=== PATIENT | male | born 1985 | race Caucasian/White ===

== ENCOUNTER 2016-12-10 10:35 | Emergency (ER) | payer MEDICARE, MEDICAID ==
[2016-12-10 10:51] VITALS: BMI 27.3
[2016-12-10 10:52] VITALS: BP 129/82; PULSE 68; RESP 18; TEMP 98.2; O2SAT 98
== END 2016-12-10 10:51 | disposition left against medical advice (07) ==
LOC: C.ER 10:35
DX: Z00.8 Encounter for other general examination (principal); Z02.9 Encounter for administrative examinations, unspecified

== ENCOUNTER 2016-12-11 06:32 | Inpatient (IN) | payer MEDICARE, MEDICAID ==
[2016-12-11 06:32] VITALS: BMI 27.3
[2016-12-11 08:18] LABS: BASO % 0.9 % (0.0-2.0); EOS # 0.2 K/uL (0.0-0.7); EOS % 5.2 % (0.0-4.0); HEMATOCRIT 43.4 % (35.0-51.0); LYMPH # 0.4 K/uL (1.0-4.3); LYMPH % 10.6 % (20.0-40.0); MEAN CELL VOLUME 87.7 fL (80.0-94.0); MEAN CORPUSCULAR HEMOGLOBIN 28.9 pg (27.0-31.0); MEAN PLATELET VOLUME 8.4 fL (7.2-11.7); MONO # 0.4 K/uL (0.0-0.8); MONO % 10.5 % (0.0-10.0); NRBC % 0.1 % (0.0-2.0); RED CELL DISTRIBUTION WIDTH 13.7 % (11.5-14.5); WHITE BLOOD COUNT 4.2 K/uL (4.8-10.8)
[2016-12-11 08:22] LABS: RBC URINE 1 /hpf (0-3); URINE BILIRUBIN NEGATIVE (NEGATIVE); URINE BLOOD NEGATIVE (NEGATIVE); URINE COLOR Yellow (YELLOW); URINE GLUCOSE (UA) NORMAL (Normal); URINE KETONE NEGATIVE (NEGATIVE); URINE LEUKOCYTE ESTERASE NEG Leu/uL (Negative); URINE PROTEIN NEGATIVE (NEGATIVE); URINE UROBILINOGEN NORMAL mg/dL (0.2-1.0)
[2016-12-11 08:23] LABS: CHLORIDE 101 mmol/L (98-107)
[2016-12-11 08:24] LABS: POTASSIUM 4.6 mmol/L (3.6-5.2); SODIUM 139 mmol/L (132-148)
[2016-12-11 08:26] LABS: ALB/GLOB RATIO 1.2 (1.0-2.1); ALKALINE PHOSPHATASE 71 U/L (38-126); AST/SGOT 61 U/L (17-59); BILIRUBIN,TOTAL 0.7 mg/dL (0.2-1.3); BLOOD UREA NITROGEN 13 mg/dL (9-20); CARBON DIOXIDE 29 mmol/L (22-30); GFR AFRICAN-AMERICAN > 60; TOTAL PROTEIN 7.5 g/dL (6.3-8.3)
[2016-12-11 08:27] LABS: ALCOHOL SERUM < 10 mg/dl (0-10); ALT/SGPT 97 U/L (21-72); CALCIUM 9.1 mg/dl (8.6-10.4); GLUCOSE,RANDOM 92 mg/dL (75-110)
--- NOTE | 2016-12-11 08:45 | C.PDOC ---
History Of Present Illness 31 y/o male, whose PMHx includes anxiety, depression, and schizophrenia, presents to the ED complaining of depression. Patient admits to suicidal ideation but denies suicidal pain. He reports that he is hearing voices telling him to kill himself. Admits to history of heroin abuse. Patient denies any pain or other complaints at this time. Time Seen by Provider: 12/11/16 07:15 Chief Complaint (Nursing): Psychiatric Evaluation History Per: Patient History/Exam Limitations: no limitations Onset/Duration Of Symptoms: Days, Gradual, Persistent Current Symptoms Are (Timing): Still Present Suicide/Self Injury Attempted (Context): None Associated Symptoms: Depression, Suicidal Thoughts Involuntary Hold By: None Recent travel outside of the [place]: No Past Medical History Reviewed: Historical Data, Nursing Documentation, Vital Signs Vital Signs: Last Vital Signs Temp 98.7 F 12/11/16 11:00 Pulse 84 12/11/16 11:00 Resp 16 12/11/16 11:00 BP 119/61 12/11/16 11:00 Pulse Ox 96 12/11/16 11:00 - Medical History PMH: Anxiety, Depression, Schizophrenia Surgical History: No Surg Hx - [facility] Procedures DETOXIFICATION SERVICES FOR SUBSTANCE ABUSE TREATMENT (11/13/16) GROUP PSYCHOTHERAPY (11/13/16) INDIV PSYCHOTHERAPY FOR SUBSTANCE ABUSE TREATMENT, SUPPORT (11/13/16) INDIV PSYCHOTHERAPY FOR SUBSTANCE ABUSE, COGNITIV BEHAVIORAL (11/13/16) INDIV PSYCHOTHERAPY FOR SUBSTANCE ABUSE, PSYCHOEDUCATION (11/13/16) Family History: States: No Known Family Hx - Social History Hx Tobacco Use: Yes Hx Alcohol Use: No Hx Substance Use: Yes (heroin) Review Of Systems Except As Marked, All Systems Reviewed And Found Negative. Musculoskeletal: Negative for: Other (pain) Psych: Positive for: Depression, Suicidal ideation Physical Exam - Physical Exam Appears: Non-toxic, No Acute Distress, Other (flat affect) Skin: Normal Color, Warm, Dry Head: Atraumatic, Normacephalic Neck: Normal ROM Chest: Symmetrical Cardiovascular: Rhythm Regular Respiratory: Normal Breath Sounds, No Rales, No Rhonchi, No Wheezing Gastrointestinal/Abdominal: Normal Exam, Soft, No Tenderness Extremity: Normal ROM Neurological/Psych: Oriented x3, Normal Speech, Normal Cognition ED Course And Treatment - Laboratory Results Result Diagrams: 12/11/16 08:11 03/21/17 08:11 O2 Sat by Pulse Oximetry: 98 (ra) Pulse Ox Interpretation: Normal Progress Note: Blood work and urinalysis were ordered. Patient was placed under 1:1 observation. 9:45AM- Patient medically cleared. Pending crisis. Patient admitted under the care of Dr. Dominick Lara. Disposition - Disposition Disposition: HOSPITALIZED - Scribe Statement The provider has reviewed the documentation as recorded by the Scribe (Emelina Nava) Provider Attestation: All medical record entries made by the Scribe were at my direction and personally dictated by me. I have reviewed the chart and agree that the record accurately reflects my personal performance of the history, physical exam, medical decision making, and the department course for this patient. I have also personally directed, reviewed, and agree with the discharge instructions and disposition.
[2016-12-11 11:23] VITALS: O2SAT 98
[2016-12-11] MEDS ORDERED: Aluminum Hydroxide/Magnesium Hydroxide Susp (30 mL) PO PRN (13:16)
--- NOTE | 2016-12-11 15:28 | PCM.PSYCH ---
Initial Psychiatric Evaluation - Initial Psychiatric Evaluation Type of Admission: Voluntary Legal Status: Capacity Chief Complaint (in patient's own words): i am hearing voices to kill myself History of Present Illness and Precipitating Events: This is a 31 year old, HM currently single and unemployed, who is recently immigrated from [place] almost 5 years ago, presented to the ED for a crisis evaluation due to depression, auditory hallucinations command type to kill himself and opiate dependence. Pt was just discharged from the [facility] 5E unit, one month ago. As per the pt, he relapsed on heroin soon after the discharge and stopped taking his medications. Yesterday he injected almost 20 bags of heroin, and started hearing voices, commanding him to kill himself. Pt got concerned and came to the hospital to get help. Pt appeared disorganized and internally preoccupied throughout the interview. He was superficially cooperative but remained guarded about the details. He reports depressed mood, feelings of hopelessness and helplessness. He reports poor sleep, poor appetite and low energy. besides auditory hallucinations, he reports persecutory delusion that people are following him. Pt reports the withdrawal symptoms including bone pain, anxiety, cold sweats, abdominal cramps and anxiety. Patient has a history of suicide attempts/self harm and has multiple scars on his arm and wrists. Pt reports abusing occasionally marijuana and cocaine when he does not have enough money for heroin. However, he denies any drinking or any other substance abuse. Past Medical History: None reported, NKDA Current Medications: Active Medications Generic Name Dose Route Start Last Admin Trade Name Freq PRN Reason Stop Dose Admin Acetaminophen 650 mg 12/11/16 13:15 Tylenol 325mg Tab PO Q6 PRN Fever >100.4 F Al Hydrox/Mg Hydrox/Simethicone 30 ml 12/11/16 13:16 Maalox 30 Ml PO TID PRN Indigestion / Heartburn Clonidine HCl 0.1 mg 12/11/16 13:16 Catapres PO Q8 PRN COWS Score More or Equal to 5 Diphenhydramine HCl 50 mg 12/11/16 13:15 Benadryl PO Q6 PRN Extra Pyramidal Symptoms Loperamide HCl 2 mg 12/11/16 13:15 Imodium PO Q8 PRN Diarrhea Methadone HCl 5 mg 12/12/16 10:00 Methadone PO 03/25/17 09:59 DAILY MAIRA Taper Nicotine 1 patch 12/11/16 13:30 12/11/16 13:58 Nicoderm Cq TD 1 patch DAILY MAIRA Administration Ondansetron HCl 4 mg 12/11/16 13:15 12/11/16 13:59 Zofran Tab PO 4 mg Q8H PRN Administration Nausea/Vomiting Sertraline HCl 50 mg 12/12/16 10:00 Zoloft PO DAILY MAIRA Trazodone HCl 50 mg 12/11/16 22:00 Desyrel PO HS MAIRA Past Psychiatric History - Past Psychiatric History Previous Treatment History: Inpatient Pertinent Medical Hx (Current Medical&Sleep Prob, Allergies): Allergies Allergy/AdvReac Type Severity Reaction Status Date / Time No Known Allergies Allergy Verified 12/11/16 06:43 No Known Home Med 12/10/16 Review of Systems - Review of Systems All systems: reviewed and no additional remarkable complaints except - Psychiatric Psychiatric: Anxiety, Auditory Hallucinations, Irritability, Paranoia, Suicidal Ideation Mental Status Examination - Personal Presentation Personal Presentation: Looks stated age - Affect Affect: Constricted, Depressed - Motor Activity Motor Activity: Psychomotor Retardation - Reliability in Providing Information Reliability in Providing Information: Poor, due to alteration in thoughts, Poor , due to altered mood - Speech Speech: Disorganized - Mood Mood: Depressed, Anxious - Formal Thought Process Formal Thought Process: Hallucinations, Delusions, Paranoia, Loosening of associations - Hallucinations/Delusions Hallucinations: Auditory Delusions: Persecution - Obsessions/Compulsions Obsessions: No Compulsions: No - Cognitive Functions Orientation: Person, Place, Situation, Time Sensorium: Alert Attention/Concentration: Attentive Abstract Thinking: [place] Estimate of Intelligence: Below average Judgement: Imparied, as evidence by: Poor judgement, Imparied, as evidence by: Lack of insight into illness - Risk Risk: Suicidal, Withdrawal, Diminished functioning - Strength & Assets Inventory Strength & Assets Inventory: Cooperative - Limitations Limitations: Living alone DSM 5 DX - DSM 5 DSM 5 Diagnosis: Schizoaffective disorder Bipolar type Opioid use severe Opioid withdrawal Cocaine use mild Cannabis use mild - Recommended/Plan of Treatment Treatment Recommendations and Plan of Treatment: Schizoaffective disorder Bipolar type CBT Psychoeducation Supportive therapy, group therapy, individual therapy Zoloft 50 mg PO daily Trazodone 50 mg by mouth daily at bedtime Opioid use disorder severe CBT & Psychoeducation Supportive therapy, individual therapy Use [place] for abstinence Opioid withdrawal CBT Psychoeducation Supportive therapy, individual therapy methadone taper Cocaine use mild CBT & Psychoeducation Use [place] for abstinence Cannabis use mild CBT & Psychoeducation Use [place] for abstinence - Smoking Cessation Smoking Cessation Initiated: No
--- NOTE | 2016-12-12 14:38 | PCM.PYCHPN ---
Psychiatric Progress Note - Psychiatric Progress Note Patient seen today, length of contact: 15 min Patient Chief Complaint: i am hearing voices to kill myself Problems Identified/Issues Discussed: Patient seen and evaluated, chart reviewed and discussed with the nurse. Patient still appears disorganized and internally preoccupied. However he remained calm and cooperative. He reports of auditory hallucinations and persecutory delusions. He still reports withdrawal symptoms including shakes, cramps, anxiety, headaches and sweating. He is taking medication and denied any side effects. Supportive therapy and psychoeducation were given Medication Change: Yes (Start Prolixin) Medical Record Reviewed: Yes Mental Status Examination - Cognitive Function Orientation: Person, Place, Situation, Time Memory: Intact Attention: Poor Concentration: Poor Association: Loose Fund of Knowledge: Poor - Mood Mood: Depressed, Anxious - Affect Affect: Constricted, Depressed - Formal Thought Process Formal Thought Process: Hallucinations, Delusions, Paranoia, Loosening of associations - Suicidal Ideation Suicidal Ideation: No - Homicidal Ideation Homicidal Ideation: No Goal/Treatment Plan - Goal/Treatment Plan Need for Continued Stay: Discharge may exacerbated symptoms, Severe functional impairment Progress Toward Problem(s) and Goals/Treatment Plan: Schizoaffective disorder Bipolar type CBT Psychoeducation Supportive therapy, group therapy, individual therapy Zoloft 50 mg PO daily Trazodone 50 mg by mouth daily at bedtime Prolixin 5 mg by mouth twice a day Opioid use disorder severe CBT & Psychoeducation Supportive therapy, individual therapy Use [place] for abstinence Opioid withdrawal CBT Psychoeducation Supportive therapy, individual therapy methadone taper Cocaine use mild CBT & Psychoeducation Use [place] for abstinence Cannabis use mild CBT & Psychoeducation Use [place] for abstinence - Smoking Cessation Smoking Cessation Initiated: No
--- NOTE | 2016-12-13 14:39 | PCM.PYCHPN ---
Psychiatric Progress Note - Psychiatric Progress Note Patient seen today, length of contact: 15 min Patient Chief Complaint: I'm still feeling depressed Problems Identified/Issues Discussed: Patient seen and evaluated, chart reviewed and discussed with the nurse. As per the staff, patient still appears disorganized and internally preoccupied. He still reports of auditory hallucinations and persecutory delusions but he remained calm and cooperative. He reports depressed mood and poor sleep. However he is taking medication and denied any side effects. Supportive therapy and psychoeducation were given Medication Change: Yes (Increase Zoloft) Medical Record Reviewed: Yes Mental Status Examination - Cognitive Function Orientation: Person, Place, Situation, Time Memory: Intact Attention: WNL Concentration: Poor Association: Loose Fund of Knowledge: Poor - Mood Mood: Depressed, Anxious - Affect Affect: Constricted, Depressed - Formal Thought Process Formal Thought Process: Hallucinations, Delusions, Paranoia, Loosening of associations - Suicidal Ideation Suicidal Ideation: No - Homicidal Ideation Homicidal Ideation: No Goal/Treatment Plan - Goal/Treatment Plan Need for Continued Stay: Discharge may exacerbated symptoms, Severe functional impairment Progress Toward Problem(s) and Goals/Treatment Plan: Schizoaffective disorder Bipolar type CBT Psychoeducation Supportive therapy, group therapy, individual therapy Zoloft 100 mg PO daily Trazodone 50 mg by mouth daily at bedtime Prolixin 5 mg twice a day Opioid use disorder severe CBT & Psychoeducation Supportive therapy, individual therapy Use [place] for abstinence Opioid withdrawal CBT Psychoeducation Supportive therapy, individual therapy methadone taper Cocaine use mild CBT & Psychoeducation Use [place] for abstinence Cannabis use mild CBT & Psychoeducation Use [place] for abstinence - Smoking Cessation Smoking Cessation Initiated: No
[2016-12-14] MEDS ORDERED: Pneumococcal 23-Valent Vaccine IM ONE (10:00)
[2016-12-14] MEDS ORDERED: Influenza Virus Vaccine 45 mcg/0.5 ml Syr IM ONE (10:00)
--- NOTE | 2016-12-14 11:08 | PCM.PYCHPN ---
Psychiatric Progress Note - Psychiatric Progress Note Patient seen today, length of contact: 15 min Patient Chief Complaint: I'm feeling little better Problems Identified/Issues Discussed: Patient seen and evaluated, chart reviewed and discussed with the nurse. As per the staff patient remained confined and withdrawn. His affect is flat and he has severe thought blocking's. However patient reports improvement in his mood and improvement in his hallucinations. He still reports withdrawal symptoms including cramps, headaches and sweating. He reports a bit improvement in auditory hallucinations and persecutory delusions. Patient still appears a bit disorganized and somewhat internally preoccupied. However he remained calm and cooperative. He is taking medication and denies any side effects. Supportive therapy and psychoeducation were given Medication Change: Yes (Increase Prolixin) Medical Record Reviewed: Yes Mental Status Examination - Cognitive Function Orientation: Person, Place, Situation, Time Memory: Intact Attention: WNL Concentration: Poor Association: Loose Fund of Knowledge: Poor - Mood Mood: Depressed, Anxious - Affect Affect: Constricted, Depressed - Speech Speech: Soft - Formal Thought Process Formal Thought Process: Hallucinations, Delusions, Paranoia, Loosening of associations - Suicidal Ideation Suicidal Ideation: No - Homicidal Ideation Homicidal Ideation: No Goal/Treatment Plan - Goal/Treatment Plan Need for Continued Stay: Discharge may exacerbated symptoms, Severe functional impairment Progress Toward Problem(s) and Goals/Treatment Plan: Schizoaffective disorder Bipolar type CBT Psychoeducation Supportive therapy, group therapy, individual therapy Zoloft 100 mg PO daily Trazodone 50 mg by mouth daily at bedtime Prolixin 5 mg by mouth daily Prolixin 10 mg by mouth daily at bedtime Opioid use disorder severe CBT & Psychoeducation Supportive therapy, individual therapy Use [place] for abstinence Opioid withdrawal CBT Psychoeducation Supportive therapy, individual therapy methadone taper Cocaine use mild CBT & Psychoeducation Use [place] for abstinence Cannabis use mild CBT & Psychoeducation Use [place] for abstinence - Smoking Cessation Smoking Cessation Initiated: No
--- NOTE | 2016-12-16 23:48 | PCM.PYCHPN ---
Psychiatric Progress Note - Psychiatric Progress Note Patient seen today, length of contact: 15 MIN Patient Chief Complaint: I AM HAVING A HARD TIME WITHB THE WITHDRAWAL SYMPTOMS- YAWNING SWEATING SHAKES Problems Identified/Issues Discussed: SYMPTOM MANAGEMENT RELAPSE PREVENTION CARING FOR SELF Medical Problems: NOTHING ACUTE Diagnostic Results: REVIEWED Medication Change: No Medical Record Reviewed: Yes Mental Status Examination - Cognitive Function Orientation: Place, Situation, Time Memory: Intact Attention: WNL Concentration: Poor Association: WNL Fund of Knowledge: Poor - Mood Mood: Depressed, Anxious - Affect Affect: Constricted, Depressed - Speech Speech: Appropriate - Formal Thought Process Formal Thought Process: Hallucinations, Paranoia - Suicidal Ideation Suicidal Ideation: No - Homicidal Ideation Homicidal Ideation: No Goal/Treatment Plan - Goal/Treatment Plan Need for Continued Stay: Discharge may exacerbated symptoms, Severe functional impairment Progress Toward Problem(s) and Goals/Treatment Plan: SCHIZOAFFECTIVE DISORDER PROLIXIN ZOLOFT GROUPS MT CBT SUPPORTIVE PSYCHOTHERAPY OPIATE WITHDRAWAL METHADONE OPIATE USE DISORDER GROUPS CBT MT COCAINE USE DISORDER CBT MT GROUPS CANNABIS USE DISORDER PSYCHOEDUCATION GROUPS Estimated Date of D/C: 12/22/16 - Smoking Cessation Smoking Cessation Initiated: Yes
--- NOTE | 2016-12-16 23:56 | PCM.PYCHPN ---
Psychiatric Progress Note - Psychiatric Progress Note Patient seen today, length of contact: 15 MIN Patient Chief Complaint: II AM SLEEPING BETTER BUT HAVE A HARD TIME PAYING ATTENTION IN GROUPS SOMETIMES Problems Identified/Issues Discussed: ROSANA NECESSITY OF ADHERENCE TO TREATMENT Medical Problems: NOTHING ACUTE Diagnostic Results: REVIEWED Medication Change: No Medical Record Reviewed: Yes Mental Status Examination - Cognitive Function Orientation: Situation, Time Memory: Intact Attention: WNL Concentration: Poor Association: WNL Fund of Knowledge: Poor - Mood Mood: Depressed, Anxious - Affect Affect: Constricted, Depressed - Speech Speech: Appropriate - Formal Thought Process Formal Thought Process: Hallucinations, Paranoia - Suicidal Ideation Suicidal Ideation: No - Homicidal Ideation Homicidal Ideation: No Goal/Treatment Plan - Goal/Treatment Plan Need for Continued Stay: Discharge may exacerbated symptoms, Severe functional impairment Progress Toward Problem(s) and Goals/Treatment Plan: SCHIZOAFFECTIVE DISORDER PROLIXIN ZOLOFT GROUPS DC CBT SUPPORTIVE PSYCHOTHERAPY OPIATE WITHDRAWAL METHADONE OPIATE USE DISORDER GROUPS CBT DC COCAINE USE DISORDER CBT DC GROUPS CANNABIS USE DISORDER PSYCHOEDUCATION GROUPS Estimated Date of D/C: 12/22/16 - Smoking Cessation Smoking Cessation Initiated: Yes
--- NOTE | 2016-12-17 10:54 | PCM.PYCHDC ---
Mental Status Examination - Mental Status Examination Orientation: Person, Place, Situation, Time Memory: Intact Mood: Neutral Affect: Constricted Speech: Soft Attention: WNL Concentration: WNL Association: WNL Fund of Knowledge: WNL Formal Thought Process: No Impairment Description of patient's judgement and insight: good, fair Psychotic Thoughts and Behaviors: Denies any AVH Suicidal Ideation: No Current Homicidal Ideation?: No Discharge Summary - Discharge Note Reason for Hospitalization: This is a 31 year old, HM currently single and unemployed, who is recently immigrated from [place] almost 5 years ago, presented to the ED for a crisis evaluation due to depression, auditory hallucinations command type to kill himself and opiate dependence. Pt was just discharged from the [facility] 5E unit, one month ago. As per the pt, he relapsed on heroin soon after the discharge and stopped taking his medications. Yesterday he injected almost 20 bags of heroin, and started hearing voices, commanding him to kill himself. Pt got concerned and came to the hospital to get help. Pt appeared disorganized and internally preoccupied throughout the interview. He was superficially cooperative but remained guarded about the details. He reports depressed mood, feelings of hopelessness and helplessness. He reports poor sleep, poor appetite and low energy. besides auditory hallucinations, he reports persecutory delusion that people are following him. Pt reports the withdrawal symptoms including bone pain, anxiety, cold sweats, abdominal cramps and anxiety. Patient has a history of suicide attempts/self harm and has multiple scars on his arm and wrists. Pt reports abusing occasionally marijuana and cocaine when he does not have enough money for heroin. However, he denies any drinking or any other substance abuse. Past Medical History: None reported, NKDA Consultations:: List each consultation separately and include: 1. Reason for request. 2. Findings. 3. Follow-up Summary of Hospital Course include:: 1. Description of specific treatment plan utilized for patients during their course of treatmen. 2. Summarize the time- course for resolution of acute symptoms and/or regressed behaviors. 3. Describe issues identified and worked on during hospitalization. 4. Describe medication utilized. 5. Describe medical problems identified and treated. 6. Reassessment of suicide risk Summary of Hospital Course: During the course of his stay, patient (pt) started progressively improving and he no longer remained irritable, depressed, suicidal and paranoid. His mood and paranoia were improved and he started attending groups and meetings and started socializing. Patient denied any feelings of hopelessness, helplessness, and worthlessness, denied any problem with the sleep or appetite, denied suicidal ideation or homicidal ideation. Pt denied any auditory or visual hallucinations. Some changes were made in his current medications and patient was discharged on following medications. He tolerated these medications very well and denied any side effects. - Final Diagnosis (DSM 5) Condition upon Discharge: GOOD DSM 5: Schizoaffective disorder Bipolar type Opioid use disorder severe Opioid withdrawal Cocaine use mild Cannabis use mild Disposition: HOME/ ROUTINE Follow-up Treatment Plan: Education: Pt was educated and counseled about the risks and benefits of taking and not taking medications. Pt was educated and counseled about the risks of drinking and abusing drugs. Pt was educated and counseled to go to the ER or call 911 if pt develop suicidal ideation or homicidal ideation, worsening of symptoms or severe side effects of the meds. Prescriptions/Medication Reconciliation: Benztropine [Cogentin] 1 mg PO BID #60 tab fluPHENAZine [Prolixin] 10 mg PO BID #60 tab Sertraline [Zoloft] 100 mg PO DAILY #30 tab - Smoking Cessation Smoking Cessation Medication prescribed: No - Antipsychotic Medications Pt discharged on 2 or more routine antipsychotic medications: No
[2016-12-17 10:55] VITALS: BP 115/74; PULSE 85; RESP 20; TEMP 98.3
== END 2016-12-17 13:10 | disposition home or self-care (01) | DRG 895 ==
LOC: C.ER 06:32 → C.5E 10:36
PROVIDERS: ADMIT Psychiatry & Neurology Psychiatry; ATTEND Psychiatry & Neurology Psychiatry
PROC: GZ58ZZZ Individual Psychotherapy, Cognitive-Behavioral (ICD-10-PCS; principal; 2016-12-11)
PROC: HZ52ZZZ Individual Psychotherapy for Substance Abuse Treatment, Cognitive-Behavioral (ICD-10-PCS; 2016-12-11)
PROC: GZ56ZZZ Individual Psychotherapy, Supportive (ICD-10-PCS; 2016-12-11)
PROC: GZHZZZZ Group Psychotherapy (ICD-10-PCS; 2016-12-11)
PROC: HZ59ZZZ Individual Psychotherapy for Substance Abuse Treatment, Supportive (ICD-10-PCS; 2016-12-11)
PROC: HZ56ZZZ Individual Psychotherapy for Substance Abuse Treatment, Psychoeducation (ICD-10-PCS; 2016-12-11)
PROC: HZ2ZZZZ Detoxification Services for Substance Abuse Treatment (ICD-10-PCS; 2016-12-11)
DX: F11.23 Opioid dependence with withdrawal (principal); R45.851 Suicidal ideations; F25.0 Schizoaffective disorder, bipolar type; F22 Delusional disorders; F12.90 Cannabis use, unspecified, uncomplicated; F14.90 Cocaine use, unspecified, uncomplicated; F41.9 Anxiety disorder, unspecified; Z79.899 Other long term (current) drug therapy; Z91.5 Personal history of self-harm

== ENCOUNTER 2017-01-01 09:12 | Inpatient (IN) | payer MEDICARE, MEDICAID ==
[2017-01-01 09:13] VITALS: BMI 27.3
[2017-01-01 09:54] LABS: RBC URINE 1 /hpf (0-3); URINE BILIRUBIN NEGATIVE (NEGATIVE); URINE BLOOD NEGATIVE (NEGATIVE); URINE COLOR Yellow (YELLOW); URINE GLUCOSE (UA) NORMAL (Normal); URINE KETONE NEGATIVE (NEGATIVE); URINE LEUKOCYTE ESTERASE NEG Leu/uL (Negative); URINE PROTEIN NEGATIVE (NEGATIVE); URINE UROBILINOGEN NORMAL mg/dL (0.2-1.0); WBC URINE 2 /hpf (0-5)
[2017-01-01 09:57] LABS: BASO % 0.7 % (0.0-2.0); EOS # 0.3 K/uL (0.0-0.7); EOS % 5.3 % (0.0-4.0); HEMATOCRIT 41.2 % (35.0-51.0); LYMPH # 0.8 K/uL (1.0-4.3); MEAN CELL VOLUME 89.1 fL (80.0-94.0); MEAN CORPUSCULAR HEMOGLOBIN 28.7 pg (27.0-31.0); MEAN CORPUSCULAR HGB CONC 32.2 g/dL (33.0-37.0); MEAN PLATELET VOLUME 8.8 fL (7.2-11.7); MONO # 0.3 K/uL (0.0-0.8); MONO % 6.6 % (0.0-10.0); RED CELL DISTRIBUTION WIDTH 14.4 % (11.5-14.5); WHITE BLOOD COUNT 4.8 K/uL (4.8-10.8)
--- NOTE | 2017-01-01 09:58 | C.PDOC ---
History Of Present Illness 31 y/o male, whose PMHx includes depression, anxiety, and schizophrenia, presents to the ED complaining of hearing voices telling him to hurt people x 1 day. He reports history of heroin abuse and states last use was yesterday. Patient denies any suicidal ideation or physical complaints. Time Seen by Provider: 01/01/17 09:25 Chief Complaint (Nursing): Psychiatric Evaluation History Per: Patient History/Exam Limitations: no limitations Onset/Duration Of Symptoms: Days (1), Gradual, Persistent Current Symptoms Are (Timing): Still Present Suicide/Self Injury Attempted (Context): None Modifying Factor(s): Other (heroin) Involuntary Hold By: None Recent travel outside of the [place]: No Past Medical History Reviewed: Historical Data, Nursing Documentation, Vital Signs Vital Signs: Last Vital Signs Temp 98.1 F 01/01/17 09:17 Pulse 69 01/01/17 09:17 Resp 16 01/01/17 09:17 BP 123/81 01/01/17 09:17 Pulse Ox 98 01/01/17 11:25 - Medical History PMH: Anxiety, Depression, Schizophrenia (paranoid schizophrenia) Surgical History: No Surg Hx - [facility] Procedures DETOXIFICATION SERVICES FOR SUBSTANCE ABUSE TREATMENT (12/11/16) GROUP PSYCHOTHERAPY (12/11/16) INDIV PSYCHOTHERAPY FOR SUBSTANCE ABUSE TREATMENT, SUPPORT (12/11/16) INDIV PSYCHOTHERAPY FOR SUBSTANCE ABUSE, COGNITIV BEHAVIORAL (12/11/16) INDIV PSYCHOTHERAPY FOR SUBSTANCE ABUSE, PSYCHOEDUCATION (12/11/16) INDIVIDUAL PSYCHOTHERAPY, COGNITIVE-BEHAVIORAL (12/11/16) INDIVIDUAL PSYCHOTHERAPY, SUPPORTIVE (12/11/16) Family History: States: No Known Family Hx - Social History Hx Tobacco Use: Yes Hx Alcohol Use: No Hx Substance Use: Yes - Immunization History Hx Tetanus Toxoid Vaccination: No Hx Influenza Vaccination: No Hx Pneumococcal Vaccination: No Review Of Systems Except As Marked, All Systems Reviewed And Found Negative. Musculoskeletal: Negative for: Other (pain) Psych: Positive for: Other (hearing voices). Negative for: Suicidal ideation Physical Exam - Physical Exam Appears: Non-toxic, No Acute Distress Skin: Normal Color, Warm, Dry Head: Atraumatic, Normacephalic Eye(s): bilateral: Normal Inspection, PERRL Neck: Normal ROM Chest: Symmetrical Cardiovascular: Rhythm Regular Respiratory: Normal Breath Sounds, No Rales, No Rhonchi, No Wheezing Gastrointestinal/Abdominal: Normal Exam, Soft, No Tenderness Extremity: Normal ROM, No Swelling Neurological/Psych: Oriented x3, Normal Speech, Normal Cognition ED Course And Treatment - Laboratory Results Result Diagrams: 01/01/17 09:47 01/01/17 09:47 Lab Interpretation: Normal O2 Sat by Pulse Oximetry: 98 (ra) Pulse Ox Interpretation: Normal Progress Note: Blood Work and Urinalysis were ordered. Case discussed and patient evaluated by crisis who request admission to Dr Lara Reassessment Condition: Unchanged - Physician Consult Information Physician Contacted: Dominick Lara Outcome Of Conversation: admit Disposition Discussed With .: Dominick Lara Doctor Will See Patient In The: Hospital - Disposition Disposition: HOSPITALIZED Disposition Time: 11:30 Condition: STABLE - POA Present On Arrival: None - Clinical Impression Clinical Impression: Drug abuse, Schizophrenia - PA / HOT TOP [employer]ER / Resident Statement MD/DO has reviewed & agrees with the documentation as recorded. - Scribe Statement The provider has reviewed the documentation as recorded by the Scribe (Emelina Nava) All medical record entries made by the Scribe were at my direction and personally dictated by me. I have reviewed the chart and agree that the record accurately reflects my personal performance of the history, physical exam, medical decision making, and the department course for this patient. I have also personally directed, reviewed, and agree with the discharge instructions and disposition. Decision To Admit - Pt Status Changed To: Hospital Disposition Of: Inpatient - Admit Certification Admit to Inpatient:: After my assessment, the patient will require hospitalization for at least two midnights. This is because of the severity of symptoms shown, intensity of services needed, and/or the medical risk in this patient being treated as an outpatient. - InPatient: Physician Admission Certification: I certify that this patient requires 2 or more midnights of care for the following reason:: Schizophrenia. Opiod abuse - . Bed Request Type: Psychiatry Admitting Physician: Dominick Lara Patient Diagnosis: Drug abuse, Schizophrenia
[2017-01-01 09:59] LABS: CHLORIDE 101 mmol/L (98-107); POTASSIUM 4.3 mmol/L (3.6-5.2); SODIUM 139 mmol/L (132-148)
[2017-01-01 10:01] LABS: BILIRUBIN,TOTAL 0.3 mg/dL (0.2-1.3); CARBON DIOXIDE 29 mmol/L (22-30); GFR AFRICAN-AMERICAN > 60
[2017-01-01 10:02] LABS: ALB/GLOB RATIO 1.3 (1.0-2.1); ALKALINE PHOSPHATASE 79 U/L (38-126); ALT/SGPT 136 U/L (21-72); AST/SGOT 89 U/L (17-59); BLOOD UREA NITROGEN 17 mg/dL (9-20); CALCIUM 8.8 mg/dl (8.6-10.4); GLUCOSE,RANDOM 87 mg/dL (75-110); TOTAL PROTEIN 7.2 g/dL (6.3-8.3)
[2017-01-01 10:03] LABS: ALCOHOL SERUM < 10 mg/dl (0-10)
[2017-01-01 12:06] VITALS: O2SAT 97
[2017-01-01] MEDS ORDERED: Aluminum Hydroxide/Magnesium Hydroxide Susp (30 mL) PO PRN (12:13)
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
--- NOTE | 2017-01-02 11:18 | PCM.PYCHPN ---
Psychiatric Progress Note - Psychiatric Progress Note Patient seen today, length of contact: 16 min Patient Chief Complaint: "I'm hearing voices" Problems Identified/Issues Discussed: Patient seen and evaluated, chart reviewed and discussed with the nurse. Patient appears more organized but remained internally preoccupied. Patient reports irritability, agitation, and racing of thoughts. He still reports hearing voices and still appears paranoid and delusional. He still reports withdrawal symptoms including nausea, cramps, body pains and headaches. Supportive therapy and psychoeducation were given. Medication Change: Yes (methadone taper, start Prolixin) Medical Record Reviewed: Yes Mental Status Examination - Cognitive Function Orientation: Person, Place, Situation, Time Memory: Intact Attention: WNL Concentration: Poor Association: Loose Fund of Knowledge: WNL - Mood Mood: Depressed, Anxious - Affect Affect: Constricted, Depressed - Speech Speech: Soft - Formal Thought Process Formal Thought Process: Hallucinations, Delusions, Paranoia, Loosening of associations - Suicidal Ideation Suicidal Ideation: No - Homicidal Ideation Homicidal Ideation: No Goal/Treatment Plan - Goal/Treatment Plan Need for Continued Stay: Discharge may exacerbated symptoms, Severe functional impairment Progress Toward Problem(s) and Goals/Treatment Plan: Schizoaffective disorder Bipolar type CBT Psychoeducation Supportive therapy, group therapy, individual therapy Paxil 10 mg PO Daily Trazodone 50 mg by mouth daily at bedtime Depakote 250 milligram by mouth twice a day Prolixin 5 mg by mouth twice a day Opioid use disorder severe CBT & Psychoeducation Supportive therapy, individual therapy Use [place] for abstinence Opioid withdrawal CBT Psychoeducation Supportive therapy, individual therapy Methadone taper Cocaine use disorder moderate CBT & Psychoeducation Use [place] for abstinence Cannabis use disorder moderate CBT & Psychoeducation Use [place] for abstinence - Smoking Cessation Smoking Cessation Initiated: No
[2017-01-02] MEDS: Divalproex 250 mg DR Tab PO SCH (17:03)
--- NOTE | 2017-01-03 09:36 | PCM.PYCHPN ---
Psychiatric Progress Note - Psychiatric Progress Note Patient seen today, length of contact: 16 min Patient Chief Complaint: I'm feeling better Problems Identified/Issues Discussed: Patient seen and evaluated, chart reviewed and discussed with the nurse. Patient reports improvement in his mood and psychosis. He reports improvement in the auditory and reports less irritability and less agitation. He requested to be on Seroquel instead of Prolixin. Reports improvement in the withdrawal symptoms. He is taking medication and denies any side effects Supportive therapy and psychoeducation were given. Medication Change: Yes (methadone taper, start Seroquel) Medical Record Reviewed: Yes Mental Status Examination - Cognitive Function Orientation: Person, Place, Situation, Time Memory: Intact Attention: WNL Concentration: WNL Association: WNL Fund of Knowledge: WNL - Mood Mood: Anxious - Affect Affect: Constricted - Speech Speech: Soft - Formal Thought Process Formal Thought Process: No Impairment - Suicidal Ideation Suicidal Ideation: No - Homicidal Ideation Homicidal Ideation: No Goal/Treatment Plan - Goal/Treatment Plan Need for Continued Stay: Discharge may exacerbated symptoms, Severe functional impairment Progress Toward Problem(s) and Goals/Treatment Plan: Schizoaffective disorder Bipolar type CBT Psychoeducation Supportive therapy, group therapy, individual therapy Paxil 10 mg PO Daily Trazodone 50 mg by mouth daily at bedtime Depakote 500 milligram by mouth twice a day Discontinue Prolixin 5 mg by mouth twice a day Seroquel 50 mg by mouth every morning Seroquel 100 mg by mouth daily at bedtime Opioid use disorder severe CBT & Psychoeducation Supportive therapy, individual therapy Use [place] for abstinence Opioid withdrawal CBT Psychoeducation Supportive therapy, individual therapy Methadone taper Cocaine use disorder moderate CBT & Psychoeducation Use [place] for abstinence Cannabis use disorder moderate CBT & Psychoeducation Use [place] for abstinence - Smoking Cessation Smoking Cessation Initiated: No
[2017-01-03] MEDS: Divalproex 250 mg DR Tab PO SCH ×2 (10:45→17:37)
[2017-01-04 07:37] VITALS: BP 108/70; PULSE 61; RESP 19; TEMP 97.7
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
[2017-01-04] MEDS ORDERED: Divalproex 500 mg DR Tab PO SCH (10:00)
== END 2017-01-04 14:10 | disposition home or self-care (01) | DRG 895 ==
LOC: C.ER 09:12 → C.5E 11:23
PROVIDERS: ADMIT Psychiatry & Neurology Psychiatry; ATTEND Psychiatry & Neurology Psychiatry
PROC: HZ2ZZZZ Detoxification Services for Substance Abuse Treatment (ICD-10-PCS; principal; 2017-01-01)
PROC: HZ52ZZZ Individual Psychotherapy for Substance Abuse Treatment, Cognitive-Behavioral (ICD-10-PCS; 2017-01-01)
PROC: HZ59ZZZ Individual Psychotherapy for Substance Abuse Treatment, Supportive (ICD-10-PCS; 2017-01-01)
PROC: GZ58ZZZ Individual Psychotherapy, Cognitive-Behavioral (ICD-10-PCS; 2017-01-01)
PROC: GZ56ZZZ Individual Psychotherapy, Supportive (ICD-10-PCS; 2017-01-01)
PROC: GZHZZZZ Group Psychotherapy (ICD-10-PCS; 2017-01-01)
DX: F11.23 Opioid dependence with withdrawal (principal); F20.0 Paranoid schizophrenia; F25.0 Schizoaffective disorder, bipolar type; F12.90 Cannabis use, unspecified, uncomplicated; F14.90 Cocaine use, unspecified, uncomplicated; F17.210 Nicotine dependence, cigarettes, uncomplicated; Z79.899 Other long term (current) drug therapy

== ENCOUNTER 2017-01-15 12:23 | Emergency (ER) | payer MEDICARE, MEDICAID ==
[2017-01-15 12:23] VITALS: BMI 27.3
[2017-01-15 13:03] LABS: RBC URINE 2 /hpf (0-3); URINE BILIRUBIN NEGATIVE (NEGATIVE); URINE BLOOD NEGATIVE (NEGATIVE); URINE COLOR Yellow (YELLOW); URINE GLUCOSE (UA) NORMAL (Normal); URINE KETONE NEGATIVE (NEGATIVE); URINE LEUKOCYTE ESTERASE NEG Leu/uL (Negative); URINE PROTEIN 1+ mg/dL (NEGATIVE); WBC URINE 1 /hpf (0-5)
[2017-01-15 13:06] LABS: BASO % 0.5 % (0.0-2.0); EOS % 0.8 % (0.0-4.0); HEMATOCRIT 41.7 % (35.0-51.0); LYMPH % 18.4 % (20.0-40.0); MEAN CELL VOLUME 88.4 fL (80.0-94.0); MEAN CORPUSCULAR HEMOGLOBIN 29.3 pg (27.0-31.0); MEAN CORPUSCULAR HGB CONC 33.2 g/dL (33.0-37.0); MEAN PLATELET VOLUME 8.4 fL (7.2-11.7); MONO # 0.3 K/uL (0.0-0.8); MONO % 6.2 % (0.0-10.0); RED CELL DISTRIBUTION WIDTH 13.7 % (11.5-14.5); WHITE BLOOD COUNT 5.5 K/uL (4.8-10.8)
[2017-01-15 13:15] LABS: CHLORIDE 98 mmol/L (98-107)
[2017-01-15 13:16] LABS: POTASSIUM 4.1 mmol/L (3.6-5.2); SODIUM 138 mmol/L (132-148)
[2017-01-15 13:18] LABS: BILIRUBIN,TOTAL 0.9 mg/dL (0.2-1.3); GFR AFRICAN-AMERICAN > 60
[2017-01-15 13:19] LABS: ALB/GLOB RATIO 1.5 (1.0-2.1); ALKALINE PHOSPHATASE 69 U/L (38-126); ALT/SGPT 93 U/L (21-72); AST/SGOT 63 U/L (17-59); BLOOD UREA NITROGEN 16 mg/dL (9-20); CALCIUM 8.9 mg/dl (8.6-10.4); CARBON DIOXIDE 29 mmol/L (22-30); GLUCOSE,RANDOM 95 mg/dL (75-110); TOTAL PROTEIN 7.5 g/dL (6.3-8.3)
[2017-01-15 13:20] LABS: ALCOHOL SERUM < 10 mg/dl (0-10)
--- NOTE | 2017-01-15 13:52 | C.PDOC ---
History Of Present Illness 31 y/o male presents to the ED complaining of suicidal ideation. He denies any homicidal ideation. States he is hearing voices telling him to hurt himself. Patient denies any pain or other physical complaints at this time. Chief Complaint (Nursing): Psychiatric Evaluation History Per: Patient History/Exam Limitations: no limitations Onset/Duration Of Symptoms: Days, Persistent Current Symptoms Are (Timing): Still Present Suicide/Self Injury Attempted (Context): None Associated Symptoms: Suicidal Thoughts Recent travel outside of the [place]: No Past Medical History Reviewed: Historical Data, Nursing Documentation, Vital Signs Vital Signs: Last Vital Signs Temp 98.2 F 01/15/17 17:37 Pulse 65 01/15/17 17:37 Resp 20 01/15/17 17:37 BP 105/65 01/15/17 17:37 Pulse Ox 98 01/15/17 17:37 - Medical History PMH: Anxiety, Depression, Schizophrenia Surgical History: No Surg Hx - [facility] Procedures DETOXIFICATION SERVICES FOR SUBSTANCE ABUSE TREATMENT (01/01/17) GROUP PSYCHOTHERAPY (01/01/17) INDIV PSYCHOTHERAPY FOR SUBSTANCE ABUSE TREATMENT, SUPPORT (01/01/17) INDIV PSYCHOTHERAPY FOR SUBSTANCE ABUSE, COGNITIV BEHAVIORAL (01/01/17) INDIV PSYCHOTHERAPY FOR SUBSTANCE ABUSE, PSYCHOEDUCATION (12/11/16) INDIVIDUAL PSYCHOTHERAPY, COGNITIVE-BEHAVIORAL (01/01/17) INDIVIDUAL PSYCHOTHERAPY, SUPPORTIVE (01/01/17) Family History: States: Unknown Family Hx - Social History Hx Tobacco Use: Yes Hx Alcohol Use: Yes Hx Substance Use: Yes (heroin) - Immunization History Hx Tetanus Toxoid Vaccination: No Hx Influenza Vaccination: No Hx Pneumococcal Vaccination: No Review Of Systems Except As Marked, All Systems Reviewed And Found Negative. Musculoskeletal: Negative for: Other (pain) Psych: Positive for: Suicidal ideation. Negative for: Other (homicidal ideation ) Physical Exam - Physical Exam Appears: Non-toxic, No Acute Distress Skin: Normal Color, Warm, Dry Head: Atraumatic, Normacephalic Neck: Normal ROM Chest: Symmetrical Cardiovascular: Rhythm Regular Respiratory: Normal Breath Sounds, No Rales, No Rhonchi, No Wheezing Gastrointestinal/Abdominal: Normal Exam, Soft, No Tenderness Extremity: Normal ROM Neurological/Psych: Oriented x3, Normal Speech, Normal Cognition ED Course And Treatment - Laboratory Results Result Diagrams: 01/15/17 12:51 01/15/17 12:51 O2 Sat by Pulse Oximetry: 99 (ra) Pulse Ox Interpretation: Normal Progress Note: Plan: Blood Work, Urinalysis. Medical Decision Making Medical Decision Making: Patient placed under 1:1 observation. Patient is medically cleared for psychiatric admission or transfer. Patient cleared by Crisis team for discharge and outpatient follow up. Patient was provided information for outpatient services and advised to seek further evaluation and supportive psychiatric care. Instructed to return to ED for new or concerning symptoms. Disposition - Disposition Referrals: Susi Reveles, [Non-Staff] - Disposition: HOME/ ROUTINE Disposition Time: 14:20 Condition: GOOD Additional Instructions: Thank you for letting us take care of you today. Your provider was Dr. Funez. You were treated for schizophrenia and opiate use. The emergency medical care you received today was directed at your acute symptoms. If you were prescribed any medication, please fill it and take as directed. It may take several days for your symptoms to resolve. Return to the Emergency Department if your symptoms worsen, do not improve, or if you have any other problems. Please contact your doctor or call one of the physicians/clinics you have been referred to that are listed on the Patient Visit Information form that is included in your discharge packet. Bring any paperwork you were given at discharge with you along with any medications you are taking to your follow up visit. Our treatment cannot replace ongoing medical care by a primary care provider (PCP) outside of the emergency department. Thank you for allowing the [facility] team to be part of your care today. Follow up as per instructions given you by our crisis team. Instructions: Narcotic Abuse (ED) Forms: Gen Discharge Inst Bahamian Print Language: MONGOLIAN - Clinical Impression Clinical Impression: Depression - Scribe Statement The provider has reviewed the documentation as recorded by the Scribe (Emelina Nava) Provider Attestation: All medical record entries made by the Scribe were at my direction and personally dictated by me. I have reviewed the chart and agree that the record accurately reflects my personal performance of the history, physical exam, medical decision making, and the department course for this patient. I have also personally directed, reviewed, and agree with the discharge instructions and disposition.
[2017-01-15 16:15] VITALS: TEMP 98.2
[2017-01-15 17:39] VITALS: BP 105/65; PULSE 65; RESP 20
[2017-01-15 18:54] VITALS: O2SAT 99
== END 2017-01-15 17:38 | disposition home or self-care (01) ==
LOC: C.ER 12:23
DX: F32.89 Other specified depressive episodes (principal)
CPT/HCPCS: 36415; 80053; 81001; 82948; 85025; 99285; G0480

== ENCOUNTER → 2017-02-24 15:15 | Emergency (ER) | payer MEDICAID, MEDICARE ==
[2017-02-24 15:16] VITALS: BMI 27.3
== END | disposition left against medical advice (07) ==
LOC: C.ER 15:15
DX: Z02.89 Encounter for other administrative examinations (principal); Z00.00 Encounter for general adult medical examination without abnormal findings

== ENCOUNTER 2017-03-12 18:30 | Emergency (ER) | payer MEDICAID ==
[2017-03-12 18:31] VITALS: BMI 27.3
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
[2017-03-12 20:50] VITALS: BP 162/81; PULSE 82; RESP 16; TEMP 98.4; O2SAT 96
== END 2017-03-12 20:50 | disposition home or self-care (01) ==
LOC: C.ER 18:30
DX: S01.81XA Laceration without foreign body of other part of head, initial encounter (principal); S09.90XA Unspecified injury of head, initial encounter; W22.8XXA Striking against or struck by other objects, initial encounter

== ENCOUNTER 2017-04-29 12:01 | Emergency (ER) | payer MEDICARE, MEDICAID ==
[2017-04-29 12:01] VITALS: BMI 27.3
[2017-04-29 12:57] LABS: BASO % 0.5 % (0.0-2.0); EOS # 0.1 K/uL (0.0-0.7); EOS % 1.4 % (0.0-4.0); HEMOGLOBIN 14.1 g/dL (12.0-18.0); LYMPH # 1.5 K/uL (1.0-4.3); LYMPH % 31.6 % (20.0-40.0); MEAN CELL VOLUME 88.8 fL (80.0-94.0); MEAN CORPUSCULAR HEMOGLOBIN 30.3 pg (27.0-31.0); MEAN CORPUSCULAR HGB CONC 34.1 g/dL (33.0-37.0); MEAN PLATELET VOLUME 8.8 fL (7.2-11.7); MONO # 0.4 K/uL (0.0-0.8); MONO % 7.4 % (0.0-10.0); NEUT # 2.8 K/uL (1.8-7.0); NEUT % 59.1 % (50.0-75.0); RBC 4.65 Mil/uL (4.40-5.90); RED CELL DISTRIBUTION WIDTH 13.6 % (11.5-14.5); WHITE BLOOD COUNT 4.7 K/uL (4.8-10.8)
[2017-04-29 13:00] LABS: URINE BILIRUBIN NEGATIVE (NEGATIVE); URINE BLOOD NEGATIVE (NEGATIVE); URINE CLARITY Clear (Clear); URINE COLOR Yellow (YELLOW); URINE GLUCOSE (UA) NORMAL (Normal); URINE LEUKOCYTE ESTERASE NEG Leu/uL (Negative); URINE NITRATE NEGATIVE (NEGATIVE); URINE PROTEIN NEGATIVE (NEGATIVE); URINE UROBILINOGEN NORMAL mg/dL (0.2-1.0)
[2017-04-29] MEDS ORDERED: Sodium Chloride 0.9% 1,000 ML IV ONE (13:11)
[2017-04-29] MEDS ORDERED: Sodium Chloride 0.9% 1,000 ML ONE (13:14)
[2017-04-29 13:19] LABS: BARBITURATES, UR NEGATIVE (NEGATIVE); BENZODIAZEPINES, UR NEGATIVE (NEGATIVE)
[2017-04-29 13:22] LABS: PHENCYCLIDINE, UR NEGATIVE (NEGATIVE)
[2017-04-29 13:26] LABS: ALBUMIN 3.6 g/dL (3.5-5.0)
[2017-04-29 13:28] LABS: GFR AFRICAN-AMERICAN > 60; GFR NON-AFRICAN AMERICAN > 60
[2017-04-29 13:29] LABS: ALB/GLOB RATIO 1.3 (1.0-2.1); ALT/SGPT 195 U/L (21-72); AST/SGOT 88 U/L (17-59); BLOOD UREA NITROGEN 13 mg/dL (9-20); CALCIUM 8.3 mg/dl (8.6-10.4); LIPASE 80 U/L (23-300)
[2017-04-29 13:36] LABS: OPIATES, UR POSITIVE (NEGATIVE)
[2017-04-29] MEDS ORDERED: Iohexol 240 (50 ml) PO STA (14:18)
[2017-04-29] MEDS ORDERED: Iohexol 240 (50 ml) ONE (14:54)
--- NOTE | 2017-04-29 15:00 | C.PDOC ---
History Of Present Illness 31 yr old male presents to the ER with complaints of LLQ abdominal pain since last night. Patient reports history of pancreatitis and states the pain feels similar but in different location. Patient also reports he took Motrin but to no relief and decided to break his 10 day period of staying clean and sniff a bag of heroin. Patient currently denies fever, chills, chest pain, SOB, nausea, vomiting, diarrhea, dysuria, incontinence, weakness or numbness. Time Seen by Provider: 04/29/17 12:47 Chief Complaint (Nursing): Abdominal Pain History Per: Patient History/Exam Limitations: no limitations Onset/Duration Of Symptoms: Sudden Onset (Last night) Location Of Pain/Discomfort: LLQ Past Medical History Reviewed: Historical Data, Nursing Documentation, Vital Signs Vital Signs: Last Vital Signs Temp 98.5 F 04/29/17 16:22 Pulse 60 04/29/17 16:22 Resp 18 04/29/17 16:22 BP 127/85 04/29/17 16:22 Pulse Ox 98 04/29/17 16:55 - Medical History PMH: Anxiety, Depression, Pancreatitis, Schizophrenia - [facility] Procedures DETOXIFICATION SERVICES FOR SUBSTANCE ABUSE TREATMENT (01/01/17) GROUP PSYCHOTHERAPY (01/01/17) INDIV PSYCHOTHERAPY FOR SUBSTANCE ABUSE TREATMENT, SUPPORT (01/01/17) INDIV PSYCHOTHERAPY FOR SUBSTANCE ABUSE, COGNITIV BEHAVIORAL (01/01/17) INDIV PSYCHOTHERAPY FOR SUBSTANCE ABUSE, PSYCHOEDUCATION (12/11/16) INDIVIDUAL PSYCHOTHERAPY, COGNITIVE-BEHAVIORAL (01/01/17) INDIVIDUAL PSYCHOTHERAPY, SUPPORTIVE (01/01/17) Family History: States: No Known Family Hx - Social History Hx Tobacco Use: Yes Hx Alcohol Use: Yes Hx Substance Use: Yes - Immunization History Hx Tetanus Toxoid Vaccination: No Hx Influenza Vaccination: No Hx Pneumococcal Vaccination: No Review Of Systems Constitutional: Negative for: Fever, Chills Cardiovascular: Negative for: Chest Pain Respiratory: Negative for: Shortness of Breath Gastrointestinal: Positive for: Abdominal Pain (LLQ). Negative for: Nausea, Vomiting, Diarrhea Genitourinary: Negative for: Dysuria, Incontinence Neurological: Negative for: Weakness, Numbness Physical Exam - Physical Exam Appears: Non-toxic, No Acute Distress, Other (Intermittent periods of drowsy) Skin: Warm, Dry, No Rash Head: Atraumatic, Normacephalic Oral Mucosa: Moist Chest: Symmetrical, No Tenderness Cardiovascular: Rhythm Regular, No Murmur Respiratory: Normal Breath Sounds, No Rales, No Rhonchi, No Stridor, No Wheezing Gastrointestinal/Abdominal: Soft, Tenderness (LLQ tenderness), No Guarding, No Rebound Back: Normal Inspection, No CVA Tenderness Extremity: Normal ROM, No Swelling Neurological/Psych: Oriented x3, Normal Speech, Normal Motor ED Course And Treatment - Laboratory Results Result Diagrams: 04/29/17 12:52 04/29/17 13:08 O2 Sat by Pulse Oximetry: 98 (RA ) Pulse Ox Interpretation: Normal - CT Scan/US CT - Abd & Pelvis Other Rad Studies (CT/US): Read By Radiologist, Radiology Report Reviewed CT/US Interpretation: PROCEDURE: CT Abdomen and Pelvis with contrast. HISTORY : abd pain. COMPARISON: None. TECHNIQUE: Contrast dose: 90 cc Visipaque 320. Radiation dose: Total exam DLP = 708.49 mGy-cm. This CT exam was performed using one or more of the following dose reduction techniques: Automated exposure control, adjustment of the mA and/or kV according to patient size, and/or use of iterative reconstruction technique. FINDINGS: LOWER THORAX : Unremarkable. LIVER: Unremarkable. No gross lesion or ductal dilatation. GALLBLADDER AND BILE DUCTS: Unremarkable. PANCREAS: Unremarkable. No gross lesion or ductal dilatation. SPLEEN: Unremarkable. ADRENALS: Unremarkable. No mass. KIDNEYS AND URETERS: Unremarkable. No hydronephrosis. No solid mass. VASCULATURE: Unremarkable. No aortic aneurysm. BOWEL: Constipation without fecal impaction or obstruction. Diverticulosis without an acute inflammatory component or other associated pathologic process. APPENDIX: Normal appendix. PERITONEUM: Unremarkable. No free fluid. No free air. LYMPH NODES: Unremarkable. No enlarged lymph nodes. BLADDER: Unremarkable. REPRODUCTIVE: Unremarkable. BONES: No acute fracture. OTHER FINDINGS: None. IMPRESSION: No acute findings related to/accounting for the clinical presentation. Additional benign and/or incidental findings described above. Medical Decision Making Medical Decision Making: PLAN: * CT - Abd & Pelvis * Drug Screen * CBC * CMP * Urinalysis * Toradol IVP * Zofran IVP * Sodium Chloride IV 429 pm pt was resting comfortably a few minutes ago, in no acute distress, after complaining of severe pain. pt accidentally given sandwich and juice; pt had not started eating or drinking when I noticed this, and asked him to refrain from food until ct resulted. several minutes later, pt seen eating, but nurse took sandwich away. 455 pm pt feeling better; ct resulted; explained to pt that he is constipated, and has diverticulosis. re-eval of abdomen is soft, nd, nt. will d/c pt home with colace and metamucil. Disposition Counseled Patient/Family Regarding: Studies Performed, Diagnosis, Need For Followup, Rx Given - Disposition Referrals: [facility] [Outside] [facility] [Outside] Disposition: HOME/ ROUTINE Disposition Time: 17:04 Condition: IMPROVED Additional Instructions: Molina ct scan muestra que tiene estreimiento. Por favor coma ms frutas y verduras , alimentos ricos en fibra y mali ms agua. Molina exploracin tambin muestra que tiene diverticulosis. Esta essie puede inflamarse en algn momento y ser dolorosa , josefa no es hoy. Lo mejor es evitar los alimentos shazia pocorn, semillas y gregory secos. Farzana pruebas de funcin heptica estn elevadas y deben ser revisadas en un futuro prximo. Seguimiento en la clnica mdica en los pr ximos galarza. 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 - Scribe Statement The provider has reviewed the documentation as recorded by the Scribe Rachel Bach All medical record entries made by the Scribe were at my direction and personally dictated by me. I have reviewed the chart and agree that the record accurately reflects my personal performance of the history, physical exam, medical decision making, and the department course for this patient. I have also personally directed, reviewed, and agree with the discharge instructions and disposition.
[2017-04-29] MEDS ORDERED: Iodixanol 320 MG/ML 100 ML BOTTLE IV ONE (16:03)
[2017-04-29 16:24] VITALS: BP 127/85; PULSE 60; RESP 18; TEMP 98.5
[2017-04-29 16:31] VITALS: O2SAT 98
--- NOTE | 2017-04-29 16:46 | CT ---
PROCEDURE: CT Abdomen and Pelvis with contrast HISTORY: abd pain COMPARISON: None. TECHNIQUE: Contrast dose: 90 cc Visipaque 320 Radiation dose: Total exam DLP = 708.49 mGy-cm. This CT exam was performed using one or more of the following dose reduction techniques: Automated exposure control, adjustment of the mA and/or kV according to patient size, and/or use of iterative reconstruction technique. FINDINGS: LOWER THORAX: Unremarkable. LIVER: Unremarkable. No gross lesion or ductal dilatation. GALLBLADDER AND BILE DUCTS: Unremarkable. PANCREAS: Unremarkable. No gross lesion or ductal dilatation. SPLEEN: Unremarkable. ADRENALS: Unremarkable. No mass. KIDNEYS AND URETERS: Unremarkable. No hydronephrosis. No solid mass. VASCULATURE: Unremarkable. No aortic aneurysm. BOWEL: Constipation without fecal impaction or obstruction. Diverticulosis without an acute inflammatory component or other associated pathologic process. APPENDIX: Normal appendix. PERITONEUM: Unremarkable. No free fluid. No free air. LYMPH NODES: Unremarkable. No enlarged lymph nodes. BLADDER: Unremarkable. REPRODUCTIVE: Unremarkable. BONES: No acute fracture. OTHER FINDINGS: None. IMPRESSION: No acute findings related to/accounting for the clinical presentation. Additional benign and/or incidental findings described above.
== END 2017-04-29 17:23 | disposition home or self-care (01) ==
LOC: C.ER 12:01
DX: K57.90 Diverticulosis of intestine, part unspecified, without perforation or abscess without bleeding (principal); K59.00 Constipation, unspecified; R10.9 Unspecified abdominal pain; F41.9 Anxiety disorder, unspecified; F32.9 Major depressive disorder, single episode, unspecified
CPT/HCPCS: 74177; 80053; 81001; 83690; 85025; 96361; 96374; 96375; 99285; G0480; J1885; J2405; J7040; Q9966; Q9967

== ENCOUNTER 2017-06-04 20:10 | Inpatient (IN) | payer MEDICARE, MEDICAID ==
[2017-06-04 20:10] VITALS: BMI 27.3
[2017-06-04 21:20] LABS: BASO % 0.5 % (0.0-2.0); EOS # 0.1 K/uL (0.0-0.7); EOS % 1.7 % (0.0-4.0); HEMATOCRIT 42.5 % (35.0-51.0); LYMPH # 1.9 K/uL (1.0-4.3); LYMPH % 34.9 % (20.0-40.0); MEAN CELL VOLUME 88.6 fL (80.0-94.0); MEAN CORPUSCULAR HEMOGLOBIN 30.2 pg (27.0-31.0); MEAN CORPUSCULAR HGB CONC 34.1 g/dL (33.0-37.0); MEAN PLATELET VOLUME 8.6 fL (7.2-11.7); MONO # 0.3 K/uL (0.0-0.8); MONO % 6.4 % (0.0-10.0); RED CELL DISTRIBUTION WIDTH 12.8 % (11.5-14.5); WHITE BLOOD COUNT 5.4 K/uL (4.8-10.8)
[2017-06-04 21:29] LABS: RBC URINE 1 /hpf (0-3); URINE BILIRUBIN NEGATIVE (NEGATIVE); URINE BLOOD NEGATIVE (NEGATIVE); URINE COLOR Yellow (YELLOW); URINE GLUCOSE (UA) NORMAL (Normal); URINE KETONE TRACE mg/dL (NEGATIVE); URINE LEUKOCYTE ESTERASE NEG Leu/uL (Negative); URINE PROTEIN NEGATIVE (NEGATIVE); URINE UROBILINOGEN NORMAL mg/dL (0.2-1.0); WBC URINE 1 /hpf (0-5)
--- NOTE | 2017-06-04 21:31 | C.PDOC ---
History Of Present Illness 31 y/o male with complaints of hearing voices that tell him " to hurt himself and others" for 2 days. Patient also reports he is homeless and inject heroin daily. Patient is on seroquel and [place] but state he lost it 2 weeks ago. No other complaints at this time. Time Seen by Provider: 06/04/17 20:49 Chief Complaint (Nursing): Psychiatric Evaluation History Per: Patient History/Exam Limitations: no limitations Onset/Duration Of Symptoms: Days Current Symptoms Are (Timing): Still Present Suicide/Self Injury Attempted (Context): None Past Medical History Reviewed: Historical Data, Nursing Documentation, Vital Signs Vital Signs: Last Vital Signs Temp 98.4 F 06/04/17 20:35 Pulse 70 06/04/17 20:35 Resp 18 06/04/17 20:35 BP 123/69 06/04/17 20:35 Pulse Ox 98 06/04/17 23:11 - Medical History PMH: Anxiety, Depression, Pancreatitis, Schizophrenia Surgical History: No Surg Hx - [facility] Procedures DETOXIFICATION SERVICES FOR SUBSTANCE ABUSE TREATMENT (01/01/17) GROUP PSYCHOTHERAPY (01/01/17) INDIV PSYCHOTHERAPY FOR SUBSTANCE ABUSE TREATMENT, SUPPORT (01/01/17) INDIV PSYCHOTHERAPY FOR SUBSTANCE ABUSE, COGNITIV BEHAVIORAL (01/01/17) INDIV PSYCHOTHERAPY FOR SUBSTANCE ABUSE, PSYCHOEDUCATION (12/11/16) INDIVIDUAL PSYCHOTHERAPY, COGNITIVE-BEHAVIORAL (01/01/17) INDIVIDUAL PSYCHOTHERAPY, SUPPORTIVE (01/01/17) Family History: States: Unknown Family Hx - Social History Hx Tobacco Use: Yes Hx Alcohol Use: No Hx Substance Use: Yes - Immunization History Hx Tetanus Toxoid Vaccination: No Hx Influenza Vaccination: No Hx Pneumococcal Vaccination: No Review Of Systems Constitutional: Negative for: Fever, Chills Cardiovascular: Negative for: Chest Pain Respiratory: Negative for: Shortness of Breath Skin: Negative for: Rash Psych: Positive for: Suicidal ideation. Negative for: Anxiety, Depression Physical Exam - Physical Exam Appears: Non-toxic, No Acute Distress Skin: Warm, Dry Head: Atraumatic Eye(s): bilateral: PERRL, EOMI Nose: No Epistaxis Oral Mucosa: Moist Neck: Normal ROM, Supple Cardiovascular: Rhythm Regular, No Murmur Respiratory: No Decreased Breath Sounds, No Accessory Muscle Use, No Rales, No Rhonchi, No Wheezing Gastrointestinal/Abdominal: Soft, No Tenderness, No Guarding, No Rebound Neurological/Psych: Oriented x3, Normal Motor, Normal Sensation ED Course And Treatment - Laboratory Results Result Diagrams: 06/04/17 21:12 06/04/17 21:12 O2 Sat by Pulse Oximetry: 98 (RA) Pulse Ox Interpretation: Normal Medical Decision Making Medical Decision Making: EKG: Ordered, reviewed, and independently interpreted the EKG. Rate: 57 BPM Rhythm: Sinus Bradycardia Interpretation: No ST-segment elevations or depressions, no T-wave inversions, normal intervals. Disposition - Disposition Disposition: HOSPITALIZED Disposition Time: 23:11 Condition: STABLE Forms: [facility] (Colombian) - Clinical Impression Clinical Impression: Schizophrenia - Scribe Statement The provider has reviewed the documentation as recorded by the Urielibjared Cross All medical record entries made by the Urielibjared were at my direction and personally dictated by me. I have reviewed the chart and agree that the record accurately reflects my personal performance of the history, physical exam, medical decision making, and the department course for this patient. I have also personally directed, reviewed, and agree with the discharge instructions and disposition.
[2017-06-04 21:38] LABS: CHLORIDE 100 mmol/L (98-107); POTASSIUM 4.1 mmol/L (3.6-5.2); SODIUM 141 mmol/L (132-148)
[2017-06-04 21:40] LABS: BILIRUBIN,TOTAL 0.5 mg/dL (0.2-1.3); GFR AFRICAN-AMERICAN > 60
[2017-06-04 21:41] LABS: ALB/GLOB RATIO 1.5 (1.0-2.1); ALKALINE PHOSPHATASE 58 U/L (38-126); ALT/SGPT 93 U/L (21-72); AST/SGOT 49 U/L (17-59); BLOOD UREA NITROGEN 11 mg/dL (9-20); CALCIUM 9.1 mg/dl (8.6-10.4); CARBON DIOXIDE 30 mmol/L (22-30); GLUCOSE,RANDOM 74 mg/dL (75-110); TOTAL PROTEIN 7.4 g/dL (6.3-8.3)
[2017-06-04 21:42] LABS: ALCOHOL SERUM < 10 mg/dl (0-10)
[2017-06-04] MEDS ORDERED: Aluminum Hydroxide/Magnesium Hydroxide Susp (30 mL) PO PRN (23:54)
[2017-06-05] MEDS ORDERED: Pneumococcal 23-Valent Vaccine IM ONE (00:45)
--- NOTE | 2017-06-05 10:30 | PCM.BM ---
<KirbyJosephine Adwoa - Last Filed: 06/05/17 10:26> Treatment Plan Problems - Problems identified on initial assessmt Depression Date Initiated: 06/05/17 Time Initiated: 10:26 Assessment reference: NA Status: Active Substance Abuse Date Initiated: 06/05/17 Time Initiated: 10:27 Assessment reference: NA Status: Active Treatment assets and liabiliti Patient Assests: adapts well, cooperative, ADL independent, physically healthy, cognitively intact Patient Liabilities: live alone (Homeless), financial problems, poor support system, substance abuse (Opiates, Cocaine, THC) - Milieu Protocol Maintain good personal hygiene: daily Encourage regular showers, daily Remind patient to perform daily oral care, other Assist patient to perform ADL's (Self) Conduct patient checks and document Observation sheet: Q15 minutes (safety) Maintain personal safety: every shift Educate patient to report safety concerns to staff, every shift Monitor environment for contraband/sharps Medication safety: Monitor for expected outcome, potential side effects: every shift, Assess barriers to learning: every shift, Assess readiness for medication education: every shift <Dominick Lara - Last Filed: 06/05/17 10:51> - Diagnosis (1) Schizophrenia Status: Acute Interventions: 06/05/17 10:51 * Assess/adjust medications daily and /or as needed * See patient on an individual basis 7x/week to assess status of hallucinations * Discuss risks, benefits, side effects and alternatives of medications * (2) Heroin dependence Status: Acute Interventions: 06/05/17 10:51 * Assess 7x/week regarding severity of withdrawal * Educate regarding risks, benefits, side effects and alternatives of medications * Use Motivational Interviewing for abstinence * Use CBT for relapse prevention * Medication management for withdrawal symptoms * Encourage medication assisted treatment <Kristie León - Last Filed: 06/05/17 10:59> Family Contact Family involvement: Famliy/SO not involved - Goals for Treatment Patient goals for treatment: "I need methadone." Discharge/Continuing Care - Education Needs Education Needs: Patient Medication, Patient Coping Skills, Patient Placement options, Patient Community resources - Discharge Discharge Criteria: Tolerates medication w/o severe side effects, Free of Homicidal thoughts, No longer exhibiting s/s of withdrawal, Reduction of target symptoms Discharge to:: Long-Term - Treatment Team Participation Discussed with Family/SO: No Was Patient/Family/SO present at Treatment Team Meeting: Yes
[2017-06-05] MEDS ORDERED: Divalproex 500 mg DR Tab PO STA (10:48)
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
--- NOTE | 2017-06-05 12:48 | CARD ---
APPROVED REPORT EKG Measurement Heart [id number] <Conclusion> Sinus bradycardia with sinus arrhythmia Otherwise normal ECG
[2017-06-05] MEDS: Divalproex 500 mg DR Tab PO SCH (17:05)
[2017-06-05] MEDS ORDERED: Divalproex 250 mg DR Tab PO SCH (18:00)
[2017-06-06] MEDS: Divalproex 500 mg DR Tab PO SCH ×3 (09:31→17:56)
--- NOTE | 2017-06-06 09:33 | PCM.PYCHPN ---
Psychiatric Progress Note - Psychiatric Progress Note Patient seen today, length of contact: 15 min Patient Chief Complaint: I hear voices. Problems Identified/Issues Discussed: Patient seen and evaluated, chart reviewed and discussed with the nurse. Patient remained disorganized and internally preoccupied. Patient remained isolated, confined and withdrawn. He still reports of hearing voices. Patient still appears paranoid and delusional. He reports depressed mood and feelings of hopelessness and helplessness. He is taking medication and denies any side effects. Supportive therapy and psychoeducation were given. Medication Change: Yes (methdone taper) Medical Record Reviewed: Yes Mental Status Examination - Cognitive Function Orientation: Person, Place, Situation, Time Memory: Intact Attention: Poor Concentration: Poor Association: Loose Fund of Knowledge: Poor - Mood Mood: Anxious, Homicidal Ideation - Affect Affect: Constricted, Depressed - Speech Speech: Soft - Formal Thought Process Formal Thought Process: Hallucinations, Delusions, Paranoia, Loosening of associations - Suicidal Ideation Suicidal Ideation: No - Homicidal Ideation Homicidal Ideation: No Goal/Treatment Plan - Goal/Treatment Plan Need for Continued Stay: Discharge may exacerbated symptoms, Severe functional impairment Progress Toward Problem(s) and Goals/Treatment Plan: Schizoaffective disorder bipolar type CBT Psychoeducation Supportive therapy, group therapy, individual therapy Trazodone 50 mg PO HS Depakote 500 mg PO BID Olanzapine 5 mg PO BID Start Seroquel 200 mg PO QHS Opioid use disorder -severe CBT for relapse prevention Psychoeducation Supportive therapy, individual therapy Use CA for abstinence Opioid withdrawal Methadone taper Support and psychoeducation daily Attend group activities daily Consider and encourage MAT Refer to after care. Cocaine use disorder moderate CBT for relapse prevention Psychoeducation Supportive therapy, individual therapy Use CA for abstinence - Smoking Cessation Smoking Cessation Initiated: No
[2017-06-07] MEDS: Divalproex 500 mg DR Tab PO SCH ×2 (10:05→17:55)
[2017-06-08 06:59] VITALS: O2SAT 98
[2017-06-08] MEDS: Divalproex 500 mg DR Tab PO SCH ×2 (10:11→17:38)
--- NOTE | 2017-06-08 11:11 | PCM.PYCHPN ---
Psychiatric Progress Note - Psychiatric Progress Note Patient seen today, length of contact: 17 min Patient Chief Complaint: I am feeling little better Problems Identified/Issues Discussed: Patient seen and evaluated, chart reviewed and discussed with the nurse. Patient appears more organized and less paranoid and less delusional. Patient remained isolated, confined and withdrawn. Patient still appears mildly paranoid and delusional. He reports improvement in his mood and improvement in the feelings of hopelessness and helplessness. He is taking medication and denied any side effects. He needs more time for stabilization. Supportive therapy and psychoeducation were given. Medication Change: Yes (methadone taper) Medical Record Reviewed: Yes Mental Status Examination - Cognitive Function Orientation: Person, Place, Situation, Time Memory: Intact Attention: WNL Concentration: Poor Association: WNL Fund of Knowledge: Poor - Mood Mood: Depressed, Anxious - Affect Affect: Constricted - Speech Speech: Soft - Formal Thought Process Formal Thought Process: Paranoia - Suicidal Ideation Suicidal Ideation: No - Homicidal Ideation Homicidal Ideation: No Goal/Treatment Plan - Goal/Treatment Plan Need for Continued Stay: Discharge may exacerbated symptoms, Severe functional impairment Progress Toward Problem(s) and Goals/Treatment Plan: Schizoaffective disorder bipolar type CBT Psychoeducation Supportive therapy, group therapy, individual therapy Trazodone 50 mg PO HS Depakote 500 mg PO BID Olanzapine 5 mg PO BID reduce Seroquel 100 mg PO QHS Opioid use disorder -severe CBT for relapse prevention Psychoeducation Supportive therapy, individual therapy Use GA for abstinence Opioid withdrawal Methadone taper Support and psychoeducation daily Attend group activities daily Consider and encourage MAT Refer to after care. Cocaine use disorder moderate CBT for relapse prevention Psychoeducation Supportive therapy, individual therapy Use GA for abstinence - Smoking Cessation Smoking Cessation Initiated: No
--- NOTE | 2017-06-08 11:12 | PCM.PYCHPN ---
Psychiatric Progress Note - Psychiatric Progress Note Patient seen today, length of contact: 16 min Patient Chief Complaint: I hear voices. Problems Identified/Issues Discussed: Patient seen and evaluated, chart reviewed and discussed with the nurse. Staff reports, pt remained isolated, confined and withdrawn. Patient still appears paranoid and delusional. Patient remained disorganized and internally preoccupied. He still reports of hearing voices. He reports depressed mood and feelings of hopelessness and helplessness. He is taking medication and denies any side effects. he needs more time for stabilization. Supportive therapy and psychoeducation were given. Medication Change: Yes (methaodne taper) Medical Record Reviewed: Yes Mental Status Examination - Cognitive Function Orientation: Person, Place, Situation, Time Memory: Intact Attention: Poor Concentration: Poor Association: Loose Fund of Knowledge: Poor - Mood Mood: Depressed, Anxious - Affect Affect: Constricted, Depressed - Speech Speech: Soft - Formal Thought Process Formal Thought Process: Hallucinations, Delusions, Paranoia, Loosening of associations - Suicidal Ideation Suicidal Ideation: No - Homicidal Ideation Homicidal Ideation: No Goal/Treatment Plan - Goal/Treatment Plan Need for Continued Stay: Discharge may exacerbated symptoms, Severe functional impairment Progress Toward Problem(s) and Goals/Treatment Plan: Schizoaffective disorder bipolar type CBT Psychoeducation Supportive therapy, group therapy, individual therapy Trazodone 50 mg PO HS Depakote 500 mg PO BID Olanzapine 5 mg PO BID Start Seroquel 200 mg PO QHS Opioid use disorder -severe CBT for relapse prevention Psychoeducation Supportive therapy, individual therapy Use LA for abstinence Opioid withdrawal Methadone taper Support and psychoeducation daily Attend group activities daily Consider and encourage MAT Refer to after care. Cocaine use disorder moderate CBT for relapse prevention Psychoeducation Supportive therapy, individual therapy Use LA for abstinence - Smoking Cessation Smoking Cessation Initiated: No
[2017-06-09] MEDS: Divalproex 500 mg DR Tab PO SCH ×2 (09:57→18:03)
--- NOTE | 2017-06-09 13:45 | PCM.PYCHPN ---
Psychiatric Progress Note - Psychiatric Progress Note Patient seen today, length of contact: 16 min Patient Chief Complaint: I hear voices. Problems Identified/Issues Discussed: Patient seen and evaluated, chart reviewed and discussed with the nurse. Patient reports improvement in his mood and improvement in the feelings of hopelessness and helplessness. He is taking medication and denied any side effects. He denies any SI/HI or any AVH. He needs more time for stabilization. Supportive therapy and psychoeducation were given. Medication Change: No Medical Record Reviewed: Yes Mental Status Examination - Cognitive Function Orientation: Person, Place, Situation, Time Memory: Intact Attention: WNL Concentration: WNL Association: WN Fund of Knowledge: WNL - Mood Mood: Anxious - Affect Affect: Constricted - Speech Speech: Soft - Formal Thought Process Formal Thought Process: No Impairment - Suicidal Ideation Suicidal Ideation: No - Homicidal Ideation Homicidal Ideation: No Goal/Treatment Plan - Goal/Treatment Plan Need for Continued Stay: Discharge may exacerbated symptoms Progress Toward Problem(s) and Goals/Treatment Plan: Schizoaffective disorder bipolar type CBT Psychoeducation Supportive therapy, group therapy, individual therapy Trazodone 50 mg PO HS Depakote 500 mg PO BID Olanzapine 5 mg PO BID Seroquel 100 mg PO QHS Opioid use disorder -severe CBT for relapse prevention Psychoeducation Supportive therapy, individual therapy Use [place] for abstinence Opioid withdrawal Methadone taper Support and psychoeducation daily Attend group activities daily Consider and encourage MAT Refer to after care. Cocaine use disorder moderate CBT for relapse prevention Psychoeducation Supportive therapy, individual therapy Use [place] for abstinence - Smoking Cessation Smoking Cessation Initiated: No
[2017-06-10 09:13] VITALS: BP 122/70; PULSE 89; RESP 16; TEMP 98.3
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
[2017-06-10] MEDS: Divalproex 500 mg DR Tab PO SCH (09:49)
[2017-06-10] MEDS ORDERED: Influenza Virus Vaccine 45 mcg/0.5 ml Syr IM ONE (10:00)
== END 2017-06-10 11:30 | disposition home or self-care (01) | DRG 885 ==
LOC: C.ER 20:10 → C.5E 23:10
PROVIDERS: ADMIT Psychiatry & Neurology Psychiatry; ATTEND Psychiatry & Neurology Psychiatry
PROC: GZ3ZZZZ Medication Management (ICD-10-PCS; principal; 2017-06-04)
PROC: GZHZZZZ Group Psychotherapy (ICD-10-PCS; 2017-06-04)
PROC: GZ56ZZZ Individual Psychotherapy, Supportive (ICD-10-PCS; 2017-06-04)
PROC: HZ2ZZZZ Detoxification Services for Substance Abuse Treatment (ICD-10-PCS; 2017-06-04)
PROC: HZ59ZZZ Individual Psychotherapy for Substance Abuse Treatment, Supportive (ICD-10-PCS; 2017-06-04)
PROC: HZ46ZZZ Group Counseling for Substance Abuse Treatment, Psychoeducation (ICD-10-PCS; 2017-06-04)
DX: F25.0 Schizoaffective disorder, bipolar type (principal); F11.23 Opioid dependence with withdrawal; F14.90 Cocaine use, unspecified, uncomplicated; F17.210 Nicotine dependence, cigarettes, uncomplicated; Z79.899 Other long term (current) drug therapy; Z59.0 Homelessness

== ENCOUNTER 2017-06-16 05:59 | Emergency (ER) | payer MEDICARE, MEDICAID ==
[2017-06-16 05:59] VITALS: BMI 27.3
--- NOTE | 2017-06-16 06:26 | C.PDOC ---
History Of Present Illness The patient presents to the ED for psychiatric evaluation of depression and suicidal ideation. Patient reports hearing voices that tell him to cut himself. Patient denies homicidal ideation. Time Seen by Provider: 06/16/17 06:23 Chief Complaint (Nursing): Psychiatric Evaluation History Per: Patient History/Exam Limitations: no limitations Onset/Duration Of Symptoms: Hrs Current Symptoms Are (Timing): Still Present Suicide/Self Injury Attempted (Context): Cut Wrists Modifying Factor(s): None Severity: Mild Pain Scale Rating Of: 0 Associated Symptoms: Depression, Suicidal Thoughts, Suicidal Plan Involuntary Hold By: None Recent travel outside of the [place]: No Additional History Per: Patient Past Medical History Reviewed: Historical Data, Nursing Documentation, Vital Signs Vital Signs: Last Vital Signs Temp 98.1 F 06/16/17 06:13 Pulse 87 06/16/17 06:13 Resp 20 06/16/17 06:13 BP 135/78 06/16/17 06:13 Pulse Ox 98 06/16/17 06:32 - Medical History PMH: Anxiety, Depression, Pancreatitis (alt 93), Schizophrenia (hearing voices to hurt himself) Surgical History: No Surg Hx - [facility] Procedures DETOXIFICATION SERVICES FOR SUBSTANCE ABUSE TREATMENT (06/04/17) GROUP SEDIMENT REMEDIATION CONSULTANT FOR SUBSTANCE ABUSE TREATMENT, PSYCHOEDUCATION (06/04/17) GROUP PSYCHOTHERAPY (06/04/17) INDIV PSYCHOTHERAPY FOR SUBSTANCE ABUSE TREATMENT, SUPPORT (06/04/17) INDIV PSYCHOTHERAPY FOR SUBSTANCE ABUSE, COGNITIV BEHAVIORAL (01/01/17) INDIV PSYCHOTHERAPY FOR SUBSTANCE ABUSE, PSYCHOEDUCATION (12/11/16) INDIVIDUAL PSYCHOTHERAPY, COGNITIVE-BEHAVIORAL (01/01/17) INDIVIDUAL PSYCHOTHERAPY, SUPPORTIVE (06/04/17) MEDICATION MANAGEMENT (06/04/17) Family History: States: Unknown Family Hx - Social History Hx Tobacco Use: Yes Hx Alcohol Use: No Hx Substance Use: Yes - Immunization History Hx Tetanus Toxoid Vaccination: No Hx Influenza Vaccination: No Hx Pneumococcal Vaccination: No Review Of Systems Constitutional: Negative for: Fever, Chills Cardiovascular: Negative for: Chest Pain, Palpitations Respiratory: Negative for: Cough, Shortness of Breath Gastrointestinal: Negative for: Nausea, Vomiting, Abdominal Pain Skin: Negative for: Rash, Lesions, Jaundice, Bruising Neurological: Negative for: Weakness, Numbness Psych: Positive for: Depression, Suicidal ideation, Other (auditory hallucinations ) Physical Exam - Physical Exam Appears: Non-toxic, No Acute Distress Skin: Warm, Dry, Other (superficial abrasions to left upper arm. healed cuts to left lower arm ) Head: Normacephalic Eye(s): bilateral: Normal Inspection Oral Mucosa: Moist Neck: Supple Chest: Symmetrical, No Deformity Cardiovascular: Rhythm Regular, No Murmur Respiratory: No Rales, No Rhonchi, No Wheezing Extremity: Normal ROM, Capillary Refill (less than 2 seconds ) Pulses: Left Radial: Normal Neurological/Psych: Oriented x3 Gait: Steady ED Course And Treatment - Laboratory Results Result Diagrams: 06/16/17 06:37 O2 Sat by Pulse Oximetry: 98 (on RA) Pulse Ox Interpretation: Normal Progress Note: labs ordered. Disposition Counseled Patient/Family Regarding: Studies Performed, Diagnosis - Disposition Disposition Time: 06:23 Condition: FAIR Forms: [facility] (Maltese) - Clinical Impression Clinical Impression: Drug abuse, Schizophrenia, Depression, Heroin dependence - Scribe Statement The provider has reviewed the documentation as recorded by the Scribe (Jihan Perez) Provider Attestation: All medical record entries made by the Scribe were at my direction and personally dictated by me. I have reviewed the chart and agree that the record accurately reflects my personal performance of the history, physical exam, medical decision making, and the department course for this patient. I have also personally directed, reviewed, and agree with the discharge instructions and disposition. Physician Patient Turnover Patient Signed Over To: Janis Stock Handoff Comments: pending labs, crisis eval and disposition
[2017-06-16 06:40] LABS: BASO % 0.5 % (0.0-2.0); EOS # 0.1 K/uL (0.0-0.7); EOS % 1.8 % (0.0-4.0); HEMATOCRIT 42.6 % (35.0-51.0); LYMPH # 1.1 K/uL (1.0-4.3); LYMPH % 21.8 % (20.0-40.0); MEAN CELL VOLUME 88.1 fL (80.0-94.0); MEAN CORPUSCULAR HEMOGLOBIN 29.9 pg (27.0-31.0); MEAN CORPUSCULAR HGB CONC 33.9 g/dL (33.0-37.0); MEAN PLATELET VOLUME 8.6 fL (7.2-11.7); MONO # 0.3 K/uL (0.0-0.8); MONO % 5.9 % (0.0-10.0); NRBC % 0.1 % (0.0-2.0); RED CELL DISTRIBUTION WIDTH 12.4 % (11.5-14.5); WHITE BLOOD COUNT 5.2 K/uL (4.8-10.8)
[2017-06-16 06:58] LABS: CHLORIDE 97 mmol/L (98-107); SODIUM 139 mmol/L (132-148)
[2017-06-16 06:59] LABS: POTASSIUM 4.1 mmol/L (3.6-5.2)
[2017-06-16 07:01] LABS: ALB/GLOB RATIO 1.4 (1.0-2.1); ALKALINE PHOSPHATASE 72 U/L (38-126); ALT/SGPT 146 U/L (21-72); AST/SGOT 83 U/L (17-59); BILIRUBIN,TOTAL 1.1 mg/dL (0.2-1.3); BLOOD UREA NITROGEN 13 mg/dL (9-20); CALCIUM 9.7 mg/dl (8.6-10.4); CARBON DIOXIDE 27 mmol/L (22-30); GFR AFRICAN-AMERICAN > 60; GLUCOSE,RANDOM 73 mg/dL (75-110); TOTAL PROTEIN 7.3 g/dL (6.3-8.3)
[2017-06-16 07:02] LABS: ALCOHOL SERUM < 10 mg/dl (0-10)
[2017-06-16 07:09] LABS: RBC URINE 1 /hpf (0-3); URINE BILIRUBIN NEGATIVE (NEGATIVE); URINE BLOOD NEGATIVE (NEGATIVE); URINE COLOR Amber (YELLOW); URINE GLUCOSE (UA) NORMAL (Normal); URINE KETONE 2+ mg/dL (NEGATIVE); URINE LEUKOCYTE ESTERASE NEG Leu/uL (Negative); URINE PROTEIN 1+ mg/dL (NEGATIVE); WBC URINE 1 /hpf (0-5)
[2017-06-16 11:59] VITALS: BP 103/69; PULSE 98; RESP 15; TEMP 98; O2SAT 96
== END 2017-06-16 12:10 | disposition short-term general hospital (02) ==
LOC: C.ER 05:59
DX: F32.9 Major depressive disorder, single episode, unspecified (principal); F11.10 Opioid abuse, uncomplicated; F25.9 Schizoaffective disorder, unspecified
CPT/HCPCS: 36415; 80053; 81001; 85025; 96372; 99285; G0480; J1885; J2550

== ENCOUNTER 2017-06-26 14:13 | Emergency (ER) | payer MEDICAID, MEDICARE ==
[2017-06-26 14:14] VITALS: BMI 28.8
[2017-06-26 14:19] VITALS: BP 114/72; PULSE 78; RESP 20; TEMP 98.3; O2SAT 100
--- NOTE | 2017-06-26 14:38 | C.PDOC ---
History Of Present Illness 31 y/o male presents to ED requesting detox from heroin. Last use of heroin was yesterday. Patient denies alcohol use, as well as SI/HI. Patient complaints of body aches, nausea, and mild epigastric abdominal pain. He denies chest pain, SOB, vomiting, diarrhea, dysuria/hematuria, fever/chills. Time Seen by Provider: 06/26/17 14:21 Chief Complaint (Nursing): Substance Abuse History Per: Patient History/Exam Limitations: no limitations Onset/Duration Of Symptoms: Gradual Current Symptoms Are (Timing): Still Present Suicide/Self Injury Attempted (Context): None Modifying Factor(s): Narcotics (heroin) Severity: Moderate Associated Symptoms: denies: Suicidal Thoughts, Suicidal Plan Involuntary Hold By: None Additional History Per: Patient Past Medical History Reviewed: Historical Data, Nursing Documentation, Vital Signs Vital Signs: Last Vital Signs Temp 98.3 F 06/26/17 14:17 Pulse 78 06/26/17 14:17 Resp 20 06/26/17 14:17 BP 114/72 06/26/17 14:17 Pulse Ox 100 06/26/17 16:57 - Medical History PMH: Anxiety, Depression, Pancreatitis (alt 93), Schizophrenia (hearing voices to hurt himself) - [facility] Procedures DETOXIFICATION SERVICES FOR SUBSTANCE ABUSE TREATMENT (06/04/17) GROUP CELL COVERER FOR SUBSTANCE ABUSE TREATMENT, PSYCHOEDUCATION (06/04/17) GROUP PSYCHOTHERAPY (06/04/17) INDIV PSYCHOTHERAPY FOR SUBSTANCE ABUSE TREATMENT, SUPPORT (06/04/17) INDIV PSYCHOTHERAPY FOR SUBSTANCE ABUSE, COGNITIV BEHAVIORAL (01/01/17) INDIV PSYCHOTHERAPY FOR SUBSTANCE ABUSE, PSYCHOEDUCATION (12/11/16) INDIVIDUAL PSYCHOTHERAPY, COGNITIVE-BEHAVIORAL (01/01/17) INDIVIDUAL PSYCHOTHERAPY, SUPPORTIVE (06/04/17) MEDICATION MANAGEMENT (06/04/17) Family History: States: No Known Family Hx - Social History Hx Tobacco Use: Yes Hx Alcohol Use: No Hx Substance Use: Yes (heroin) - Immunization History Hx Tetanus Toxoid Vaccination: No Hx Influenza Vaccination: No Hx Pneumococcal Vaccination: No Review Of Systems Except As Marked, All Systems Reviewed And Found Negative. Constitutional: Positive for: Other (generalized body aches). Negative for: Fever, Chills Cardiovascular: Negative for: Chest Pain, Palpitations Respiratory: Negative for: Cough, Shortness of Breath Gastrointestinal: Positive for: Nausea, Abdominal Pain. Negative for: Vomiting , Diarrhea Genitourinary: Negative for: Dysuria, Frequency, Hematuria Neurological: Negative for: Headache, Dizziness Psych: Negative for: Suicidal ideation Physical Exam - Physical Exam Appears: Well, Non-toxic, No Acute Distress Skin: Warm, Dry, No Rash Head: Normacephalic Eye(s): bilateral: Normal Inspection Oral Mucosa: Moist Neck: Supple Cardiovascular: Rhythm Regular Respiratory: Normal Breath Sounds, No Rales, No Rhonchi, No Wheezing Gastrointestinal/Abdominal: Normal Exam, Bowel Sounds, Soft, No Tenderness Extremity: Normal ROM Extremity: Bilateral: Atraumatic, Normal Color And Temperature, Normal ROM Neurological/Psych: Oriented x3 Gait: Steady ED Course And Treatment O2 Sat by Pulse Oximetry: 100 (on RA) Pulse Ox Interpretation: Normal Progress Note: Patient was given Pepcid PO, Tylenol PO, and Zofran PO. Spoke with crisis counselor, there are no detox currently available. Reevaluation Time: 14:50 Reassessment Condition: Improved (On reassessment, patient states he is feeling better. He was given phone number for prescreening, and instructed to call that or return to ED at later date to try for detox.) Disposition Counseled Patient/Family Regarding: Diagnosis, Need For Followup, Rx Given - Disposition Referrals: Josemanuel Braswell MD [Non-Staff] - Disposition: HOME/ ROUTINE Disposition Time: 14:50 Condition: STABLE Additional Instructions: DEVUELVA A LA DEEPA DE EMERGENCIA A LA FECHA MS TARDA PARA INTENTARSE DE NUEVO PARA DETOX Prescriptions: Acetaminophen [Tylenol 325mg tab] 650 mg PO Q6 PRN #30 tab PRN Reason: pain/fever Famotidine [Pepcid] 20 mg PO BID PRN #15 tab PRN Reason: abdominal Ondansetron [Zofran Odt] 4 mg PO Q8 PRN #10 odt PRN Reason: Nausea/Vomiting Instructions: Narcotic Abuse (ED) Forms: [facility] (Bengali) Print Language: DIVEHI - Clinical Impression Clinical Impression: Heroin dependence - Scribe Statement The provider has reviewed the documentation as recorded by the Scribe Mark Perez All medical record entries made by the Scribe were at my direction and personally dictated by me. I have reviewed the chart and agree that the record accurately reflects my personal performance of the history, physical exam, medical decision making, and the department course for this patient. I have also personally directed, reviewed, and agree with the discharge instructions and disposition.
== END 2017-06-26 15:00 | disposition home or self-care (01) ==
LOC: C.ER 14:13
DX: F11.20 Opioid dependence, uncomplicated (principal)

== ENCOUNTER 2017-07-23 13:26 | Emergency (ER) | payer MEDICARE, MEDICAID ==
[2017-07-23 13:27] VITALS: BMI 28.8
[2017-07-23 13:37] VITALS: O2SAT 100
[2017-07-23] MEDS ORDERED: Naproxen 550 mg Tab PO STA (13:55)
--- NOTE | 2017-07-23 14:09 | RAD ---
HISTORY: SOB COMPARISON: None available. TECHNIQUE: Chest PA and lateral FINDINGS: LUNGS: No focal consolidation. Please note that chest x-ray has limited sensitivity for the detection of pulmonary masses. PLEURA: No significant pleural effusion identified. No definite pneumothorax . CARDIOVASCULAR: The cardiomediastinal silhouette appears within normal limits of size. OSSEOUS STRUCTURES: No acute osseous abnormality identified. VISUALIZED UPPER ABDOMEN: Unremarkable. OTHER FINDINGS: None. IMPRESSION: No focal consolidation, significant pleural effusion, or definite pneumothorax identified.
[2017-07-23 14:15] LABS: BASO % 0.5 % (0.0-2.0); EOS # 0.1 K/uL (0.0-0.7); EOS % 2.6 % (0.0-4.0); HEMATOCRIT 41.7 % (35.0-51.0); LYMPH # 1.4 K/uL (1.0-4.3); LYMPH % 25.1 % (20.0-40.0); MEAN CELL VOLUME 89.2 fL (80.0-94.0); MEAN CORPUSCULAR HEMOGLOBIN 30.5 pg (27.0-31.0); MEAN CORPUSCULAR HGB CONC 34.2 g/dL (33.0-37.0); MEAN PLATELET VOLUME 8.4 fL (7.2-11.7); MONO # 0.3 K/uL (0.0-0.8); MONO % 6.4 % (0.0-10.0); NRBC % 0.1 % (0.0-2.0); RED CELL DISTRIBUTION WIDTH 13.4 % (11.5-14.5); WHITE BLOOD COUNT 5.5 K/uL (4.8-10.8)
[2017-07-23 14:18] LABS: CHLORIDE 96 mmol/L (98-107)
[2017-07-23 14:19] LABS: POTASSIUM 3.9 mmol/L (3.6-5.2); SODIUM 136 mmol/L (132-148)
[2017-07-23 14:21] LABS: BILIRUBIN,TOTAL 0.8 mg/dL (0.2-1.3); CARBON DIOXIDE 32 mmol/L (22-30); GFR AFRICAN-AMERICAN > 60
[2017-07-23 14:22] LABS: ALB/GLOB RATIO 1.6 (1.0-2.1); ALKALINE PHOSPHATASE 70 U/L (38-126); ALT/SGPT 107 U/L (21-72); AST/SGOT 61 U/L (17-59); BLOOD UREA NITROGEN 12 mg/dL (9-20); CALCIUM 9.1 mg/dl (8.6-10.4); GLUCOSE,RANDOM 101 mg/dL (75-110); MAGNESIUM 1.9 mg/dL (1.6-2.3); RBC URINE 2 /hpf (0-3); TOTAL PROTEIN 7.6 g/dL (6.3-8.3); URINE BACTERIA RARE (<OCC); URINE BILIRUBIN NEGATIVE (NEGATIVE); URINE BLOOD NEGATIVE (NEGATIVE); URINE COLOR Yellow (YELLOW); URINE GLUCOSE (UA) NORMAL (Normal); URINE KETONE TRACE mg/dL (NEGATIVE); URINE LEUKOCYTE ESTERASE NEG Leu/uL (Negative); URINE PROTEIN NEGATIVE (NEGATIVE); URINE UROBILINOGEN NORMAL mg/dL (0.2-1.0); WBC URINE 1 /hpf (0-5)
[2017-07-23 14:23] LABS: ALCOHOL SERUM < 10 mg/dl (0-10)
[2017-07-23] MEDS ORDERED: Naproxen 550 mg Tab PO ONE (14:31)
[2017-07-23] MEDS ORDERED: Albuterol-Ipratrop 3 mg / 0.5 (3 ml) UD IH STA (14:54)
[2017-07-23] MEDS ORDERED: Albuterol 0.042% Inhal Sol (1.25 mg/3 mL) UD ONE (15:14)
--- NOTE | 2017-07-23 15:30 | C.PDOC ---
Time Seen by Provider: 07/23/17 13:42 Chief Complaint (Nursing): Chest Pain History Per: Patient, Family Onset/Duration Of Symptoms: Days (2) Current Symptoms Are (Timing): Still Present Initiating Event: Upper Respiratory Illness (?) Current Respiratory Medications: None Severity: Moderate Associated Symptoms: Chest Pain (?) Recent travel outside of the [place]: No Additional History Per: Prior Records Past Medical History Reviewed: Historical Data, Nursing Documentation, Vital Signs Vital Signs: Last Vital Signs Temp 97.8 F 07/23/17 13:33 Pulse 67 07/23/17 13:33 Resp 20 07/23/17 13:33 BP 136/88 07/23/17 13:33 Pulse Ox 100 07/23/17 13:33 - Medical History PMH: Anxiety, Depression, Pancreatitis (alt 93), Schizophrenia Surgical History: No Surg Hx - [facility] Procedures DETOXIFICATION SERVICES FOR SUBSTANCE ABUSE TREATMENT (06/04/17) GROUP MARINE OIL TERMINAL SUPERINTENDENT FOR SUBSTANCE ABUSE TREATMENT, PSYCHOEDUCATION (06/04/17) GROUP PSYCHOTHERAPY (06/04/17) INDIV PSYCHOTHERAPY FOR SUBSTANCE ABUSE TREATMENT, SUPPORT (06/04/17) INDIV PSYCHOTHERAPY FOR SUBSTANCE ABUSE, COGNITIV BEHAVIORAL (01/01/17) INDIV PSYCHOTHERAPY FOR SUBSTANCE ABUSE, PSYCHOEDUCATION (12/11/16) INDIVIDUAL PSYCHOTHERAPY, COGNITIVE-BEHAVIORAL (01/01/17) INDIVIDUAL PSYCHOTHERAPY, SUPPORTIVE (06/04/17) MEDICATION MANAGEMENT (06/04/17) Family History: States: Unknown Family Hx - Social History Hx Tobacco Use: Yes Hx Alcohol Use: No Hx Substance Use: Yes (heroin) - Immunization History Hx Tetanus Toxoid Vaccination: No Hx Influenza Vaccination: No Hx Pneumococcal Vaccination: No Review Of Systems Except As Marked, All Systems Reviewed And Found Negative. Constitutional: Negative for: Fever ENT: Positive for: Nose Congestion. Negative for: Throat Pain Respiratory: Positive for: Cough (mild). Negative for: Hemoptysis Gastrointestinal: Negative for: Vomiting, Abdominal Pain, Diarrhea Musculoskeletal: Negative for: Neck Pain, Back Pain, Leg Pain Skin: Negative for: Rash Neurological: Negative for: Weakness, Numbness Psych: Negative for: Suicidal ideation Physical Exam - Physical Exam Appears: Non-toxic, No Acute Distress Skin: Normal Color, Warm, Dry, No Rash Head: Atraumatic, Normacephalic Eye(s): bilateral: Normal Inspection, PERRL, EOMI Neck: Normal ROM, Supple Cardiovascular: Rhythm Regular Respiratory: Normal Breath Sounds, No Accessory Muscle Use Gastrointestinal/Abdominal: Soft, No Tenderness Back: No CVA Tenderness Extremity: Normal ROM, No Pedal Edema, No Calf Tenderness Neurological/Psych: Oriented x3, Normal Motor, Normal Sensation ED Course And Treatment - Laboratory Results Result Diagrams: 07/23/17 14:05 07/23/17 14:05 Lab Interpretation: No Acute Changes ECG: Interpreted By Me, Viewed By Me ECG Rhythm: Sinus Rhythm, Nonspecific Changes ECG Interpretation: No Acute Changes Rate From EC O2 Sat by Pulse Oximetry: 100 Pulse Ox Interpretation: Normal - Radiology CXR: Viewed By Me, Read By Radiologist CXR Interpretation: Yes: No Acute Disease Progress Note: Pt feels better after Duoneb. Lungs clear. Reassessment Condition: Improved Medical Decision Making Medical Decision Making: PERC rule negative. Disposition Counseled Patient/Family Regarding: Studies Performed, Diagnosis, Need For Followup, Rx Given, Smoking Cessation - Disposition Referrals: Josemanuel Braswell MD [Non-Staff] - Disposition: HOME/ ROUTINE Disposition Time: 15:31 Condition: STABLE Additional Instructions: Follow up with your doctor this week for further evaluation and treatment. Return to the ER if you develop worsening of symptoms or if you have any other concerns. Prescriptions: Albuterol HFA [Ventolin HFA 90 mcg/actuation (8 g)] 2 puff IH Q4 PRN #1 unit PRN Reason: Shortness Of Breath Instructions: Dyspnea (ED) Print Language: KITTITIAN - Clinical Impression Clinical Impression: Dyspnea
[2017-07-23 15:48] VITALS: BP 145/77; PULSE 94; RESP 18; TEMP 98.1
--- NOTE | 2017-07-25 17:40 | CARD ---
APPROVED REPORT EKG Measurement Heart [id number] <Conclusion> Sinus bradycardia intraventricular conduction defecct
== END 2017-07-23 16:07 | disposition home or self-care (01) ==
LOC: C.ER 13:26
DX: R06.00 Dyspnea, unspecified (principal); Z87.891 Personal history of nicotine dependence
CPT/HCPCS: 71020; 80053; 80164; 81001; 83735; 83880; 84484; 85025; 94640; 99285; G0480

== ENCOUNTER 2017-09-05 10:43 | Inpatient (IN) | payer MEDICARE, MEDICAID ==
[2017-09-05 10:43] VITALS: BMI 28.8
--- NOTE | 2017-09-05 11:26 | C.PDOC ---
History Of Present Illness 31 y/o male presents to ED for evaluation of auditory hallucinations and suicidal ideation. Patient states "I am hearing voice telling me to kill myself " and reports previous suicide attempt in the past. Patient admits to IV heroin use for 10 days and reports last use yesterday. No other complaints at this time. Time Seen by Provider: 09/05/17 11:22 Chief Complaint (Nursing): Psychiatric Evaluation History Per: Patient History/Exam Limitations: no limitations Onset/Duration Of Symptoms: Days Current Symptoms Are (Timing): Still Present Suicide/Self Injury Attempted (Context): None Past Medical History Reviewed: Historical Data, Nursing Documentation, Vital Signs Vital Signs: Last Vital Signs Temp 97.7 F 09/05/17 12:56 Pulse 80 09/05/17 12:56 Resp 18 09/05/17 12:56 BP 128/67 09/05/17 12:56 Pulse Ox 100 09/05/17 12:56 - Medical History PMH: Anxiety, Depression, Pancreatitis (alt 93), Schizophrenia - [facility] Procedures DETOXIFICATION SERVICES FOR SUBSTANCE ABUSE TREATMENT (06/04/17) GROUP BLACKJACK DEALER FOR SUBSTANCE ABUSE TREATMENT, PSYCHOEDUCATION (06/04/17) GROUP PSYCHOTHERAPY (06/04/17) INDIV PSYCHOTHERAPY FOR SUBSTANCE ABUSE TREATMENT, SUPPORT (06/04/17) INDIV PSYCHOTHERAPY FOR SUBSTANCE ABUSE, COGNITIV BEHAVIORAL (01/01/17) INDIV PSYCHOTHERAPY FOR SUBSTANCE ABUSE, PSYCHOEDUCATION (12/11/16) INDIVIDUAL PSYCHOTHERAPY, COGNITIVE-BEHAVIORAL (01/01/17) INDIVIDUAL PSYCHOTHERAPY, SUPPORTIVE (06/04/17) MEDICATION MANAGEMENT (06/04/17) Family History: States: No Known Family Hx - Social History Hx Tobacco Use: Yes Hx Alcohol Use: No Hx Substance Use: Yes (heroin) - Immunization History Hx Tetanus Toxoid Vaccination: No Hx Influenza Vaccination: No Hx Pneumococcal Vaccination: No Review Of Systems Constitutional: Negative for: Fever, Chills Cardiovascular: Negative for: Chest Pain Respiratory: Negative for: Shortness of Breath Gastrointestinal: Negative for: Nausea, Vomiting Skin: Negative for: Rash Neurological: Negative for: Weakness, Numbness Psych: Positive for: Suicidal ideation. Negative for: Anxiety Physical Exam - Physical Exam Appears: Non-toxic, No Acute Distress Skin: Warm, Dry, No Rash Head: Atraumatic, Normacephalic Eye(s): bilateral: PERRL, EOMI Oral Mucosa: Moist Neck: Supple Cardiovascular: Rhythm Regular Respiratory: No Rales, No Rhonchi, No Wheezing, Other (Clear to auscultation) Gastrointestinal/Abdominal: Soft, No Tenderness, No Guarding, No Rebound Back: No CVA Tenderness Extremity: No Tenderness, Capillary Refill (<2 seconds), No Swelling Neurological/Psych: Oriented x3 ED Course And Treatment - Laboratory Results Result Diagrams: 09/05/17 11:35 09/05/17 11:35 O2 Sat by Pulse Oximetry: 98 (RA) Pulse Ox Interpretation: Normal Medical Decision Making Medical Decision Making: Labs ordered and reviewed. In my clinical judgment patient is medically cleared and stable for psychiatric admission. packing floor worker contacted for evaluation. As per CW patient is to be admitted. 1224 Dr Lara accepts patient for schizoaffective disorder. Disposition - Disposition Disposition: HOSPITALIZED Disposition Time: 12:25 Condition: STABLE - POA Present On Arrival: None - Clinical Impression Clinical Impression: Schizoaffective disorder, Heroin abuse - PA / NETWORK SECURITY ADMINISTRATOR / Resident Statement MD/DO has reviewed & agrees with the documentation as recorded. - Scribe Statement The provider has reviewed the documentation as recorded by the Scribjared Cross All medical record entries made by the Lorenzo were at my direction and personally dictated by me. I have reviewed the chart and agree that the record accurately reflects my personal performance of the history, physical exam, medical decision making, and the department course for this patient. I have also personally directed, reviewed, and agree with the discharge instructions and disposition. Decision To Admit - Pt Status Changed To: Hospital Disposition Of: Inpatient - Admit Certification Admit to Inpatient:: After my assessment, the patient will require hospitalization for at least two midnights. This is because of the severity of symptoms shown, intensity of services needed, and/or the medical risk in this patient being treated as an outpatient. - InPatient: Physician Admission Certification: I certify that this patient requires 2 or more midnights of care for the following reason:: Dr Lara accepts patient for schizoaffective disorder. - . Bed Request Type: Psychiatry Admitting Physician: Dominick Lara Patient Diagnosis: Schizoaffective disorder, Heroin abuse
[2017-09-05 11:40] LABS: BASO % 0.3 % (0.0-2.0); EOS % 0.4 % (0.0-4.0); HEMATOCRIT 45.9 % (35.0-51.0); LYMPH # 0.7 K/uL (1.0-4.3); LYMPH % 10.5 % (20.0-40.0); MEAN CELL VOLUME 89.4 fL (80.0-94.0); MEAN CORPUSCULAR HEMOGLOBIN 29.8 pg (27.0-31.0); MEAN CORPUSCULAR HGB CONC 33.3 g/dL (33.0-37.0); MEAN PLATELET VOLUME 8.8 fL (7.2-11.7); MONO # 0.2 K/uL (0.0-0.8); MONO % 3.6 % (0.0-10.0); RED CELL DISTRIBUTION WIDTH 13.2 % (11.5-14.5); WHITE BLOOD COUNT 6.9 K/uL (4.8-10.8)
[2017-09-05 12:13] LABS: ALB/GLOB RATIO 1.5 (1.0-2.1); ALCOHOL SERUM < 10 mg/dl (0-10); ALKALINE PHOSPHATASE 75 U/L (38-126); ALT/SGPT 149 U/L (21-72); AST/SGOT 77 U/L (17-59); BLOOD UREA NITROGEN 12 mg/dL (9-20); CALCIUM 8.7 mg/dl (8.6-10.4); CARBON DIOXIDE 30 mmol/L (22-30); CHLORIDE 102 mmol/L (98-107); GFR AFRICAN-AMERICAN > 60; GLUCOSE,RANDOM 113 mg/dL (75-110); SODIUM 140 mmol/L (132-148); TOTAL PROTEIN 7.2 g/dL (6.3-8.3)
[2017-09-05 12:19] LABS: RBC URINE 2 /hpf (0-3); URINE BILIRUBIN NEGATIVE (NEGATIVE); URINE BLOOD NEGATIVE (NEGATIVE); URINE COLOR Yellow (YELLOW); URINE GLUCOSE (UA) NORMAL (Normal); URINE KETONE TRACE mg/dL (NEGATIVE); URINE LEUKOCYTE ESTERASE NEG Leu/uL (Negative); URINE PROTEIN NEGATIVE (NEGATIVE); URINE UROBILINOGEN NORMAL mg/dL (0.2-1.0); WBC URINE < 1 /hpf (0-5)
[2017-09-05] MEDS ORDERED: Aluminum Hydroxide/Magnesium Hydroxide Susp (30 mL) PO PRN (13:22)
--- NOTE | 2017-09-05 14:44 | PCM.BM ---
<Kimberly Esparzaanta - Last Filed: 09/05/17 14:42> Treatment Plan Problems - Problems identified on initial assessmt Problem 1 Date Initiated: 09/05/17 Time Initiated: 14:43 Assessment reference: NA Status: Active Suicidal Ideation Date Initiated: 09/05/17 Time Initiated: 14:43 Assessment reference: NA Status: Monitor Treatment assets and liabiliti Patient Assests: adapts well, cooperative, ADL independent, physically healthy, financial stabiity, cognitively intact Patient Liabilities: substance abuse - Milieu Protocol Maintain good personal hygiene: every shift Encourage regular showers, every shift Remind patient to perform daily oral care, every shift Assist patient to perform ADL's Maintain personal safety: every shift Educate patient to report safety concerns to staff, every shift Monitor environment for contraband/sharps Medication safety: Monitor for expected outcome, potential side effects: every shift, Assess barriers to learning: every shift, Assess readiness for medication education: every shift <Dominick Lara - Last Filed: 09/06/17 11:02> - Diagnosis (1) Schizoaffective disorder Status: Acute Interventions: 09/06/17 11:02 * Assess/adjust medications daily and /or as needed * See patient on an individual basis 7x/week to assess status of hallucinations * Discuss risks, benefits, side effects and alternatives of medications * (2) Heroin abuse Status: Acute Interventions: 09/06/17 11:03 * Assess 7x/week regarding severity of withdrawal * Educate regarding risks, benefits, side effects and alternatives of medications * Use Motivational Interviewing for abstinence * Use CBT for relapse prevention * Medication management for withdrawal symptoms * Encourage medication assisted treatment * <Kristie León - Last Filed: 09/06/17 11:08> Family Contact Family involvement: Family/SO is involved Family contact: Patient declines to allow family contact at present - Goals for Treatment Patient goals for treatment: "I need to go to a rehab." Discharge/Continuing Care - Education Needs Education Needs: Patient Medication, Patient Coping Skills, Patient Placement options, Patient Community resources - Discharge Discharge Criteria: Tolerates medication w/o severe side effects, No longer exhibiting s/s of withdrawal, Reduction of target symptoms Discharge to:: Home, Substance Abuse Rehab - Treatment Team Participation Discussed with Family/SO: No Was Patient/Family/SO present at Treatment Team Meeting: Yes
--- NOTE | 2017-09-06 10:30 | PCM.PSYCH ---
Initial Psychiatric Evaluation - Initial Psychiatric Evaluation Type of Admission: Voluntary Legal Status: Capacity Chief Complaint (in patient's own words): I started hearing voices.' History of Present Illness and Precipitating Events: This is a 31 years old male, who came to the ED with auditory hallucinations and suicidal ideation. Patient is well known to the [facility]. Patient has a long history of schizophrenia and heroin abuse. He was just recently discharged from the hospital. As per the patient's at discharge he stopped taking his medications and he relapsed on heroin. As per the ED notes, 'Pt presented in the ED with his girlfriend who reported that patient expressed suicidal intent today due to both social stressors and his inability to abstain from illicit chemical substances. Pt at time of contact was irritable, uncooperative and upset over recent reported stressors. Pt as reported by his girlfriend has been non- compliant with his mood stabilizer and anti-psychotics for the last several weeks. Pt has been self-medicating with Heroin and is now abusing over 15 bags daily. Pt at this time reported planning to cut both wrists as to end his suffering and life. Pt's girlfriend expressed concerns as she mentioned that patient is severely depressed and at risk for self-harm. Observation of cuts to patient wrist and left forearm were noticeable during time of contact. Pt reported that he began to self-mutilate last week at a [facility] in [place], [place]. Pt appeared to be in psychiatric distress due to continued endorsement of suicidal intent and recent disturbances in mood. behavior and demeanor. Today patient remained depressed, delusional and suicidal. Reports depressed mood and feelings of hopelessness and helplessness. He also reports auditory hallucinations command type to kill himself. As per the patient, he stole a gun from the police, sold it and now he is going to face the legal charges. Reports withdrawal symptoms from heroin including nausea, vomiting, back pains, abdominal cramps, sweating & anxiety. Current Medications: Active Medications Generic Name Dose Route Start Last Admin Trade Name Freq PRN Reason Stop Dose Admin Acetaminophen 650 mg 09/05/17 13:22 Tylenol 325mg Tab PO Q4H PRN Fever greater than 101 F Al Hydrox/Mg Hydrox/Simethicone 30 ml 09/05/17 13:22 Maalox 30 Ml PO TID PRN Indigestion / Heartburn Benztropine Mesylate 2 mg 09/05/17 13:19 Cogentin PO Q6 PRN Extra Pyramidal Symptoms Clonidine HCl 0.1 mg 09/05/17 13:22 Catapres PO Q8 PRN COWS Score More or Equal to 5 Diphenhydramine HCl 50 mg 09/05/17 13:19 Benadryl PO Q6 PRN Extra Pyramidal Symptoms Haloperidol 5 mg 09/05/17 13:19 Haldol PO Q8 PRN Moderate Agitation Hydroxyzine HCl 25 mg 09/05/17 17:00 Atarax PO Q6H PRN Anxiety Loperamide HCl 4 mg 09/05/17 13:19 Imodium PO Q8 PRN Diarrhea Methadone HCl 15 mg 09/06/17 10:30 Methadone PO 09/06/17 10:31 ONCE ONE Methadone HCl 0 mg 09/07/17 10:00 Methadone PO 09/09/17 09:59 DAILY MAIRA Taper Ondansetron HCl 4 mg 09/05/17 13:22 Zofran Tab PO Q8 PRN Nausea/Vomiting Trazodone HCl 50 mg 09/05/17 22:00 09/05/17 21:37 Desyrel PO 50 mg HS MAIRA Administration Past Psychiatric History - Past Psychiatric History Previous Treatment History: Inpatient Pertinent Medical Hx (Current Medical&Sleep Prob, Allergies): Allergies Allergy/AdvReac Type Severity Reaction Status Date / Time No Known Allergies Allergy Verified 07/23/17 13:37 QUEtiapine [SEROquel] 200 mg PO DAILY 06/16/17 busPIRone [Buspar] 10 mg PO BID 06/16/17 Acetaminophen [Tylenol 325mg tab] 650 mg PO Q6 PRN #30 tab 06/26/17 Albuterol HFA [Ventolin HFA 90 mcg/actuation (8 g)] 2 puff IH Q4 PRN #1 unit Divalproex [Depakote DR(*BID*)] DAILY 07/23/17 Review of Systems - Review of Systems All systems: reviewed and no additional remarkable complaints except - Psychiatric Psychiatric: Anxiety, Auditory Hallucinations, Irritability, Mood Swings, Paranoia, Suicidal Ideation Mental Status Examination - Personal Presentation Personal Presentation: Looks stated age - Affect Affect: Constricted, Depressed - Motor Activity Motor Activity: Psychomotor Retardation - Reliability in Providing Information Reliability in Providing Information: Poor, due to alteration in thoughts, Poor , due to altered mood - Speech Speech: Disorganized - Mood Mood: Depressed, Anxious - Formal Thought Process Formal Thought Process: Hallucinations, Delusions, Paranoia, Loosening of associations - Hallucinations/Delusions Hallucinations: Auditory Delusions: Persecution - Obsessions/Compulsions Obsessions: No Compulsions: No - Cognitive Functions Orientation: Person, Place, Situation, Time Sensorium: Alert Attention/Concentration: Attentive Abstract Thinking: Posey Estimate of Intelligence: Below average Judgement: Imparied, as evidence by: Poor judgement, Imparied, as evidence by: Lack of insight into illness - Risk Risk: Suicidal, Withdrawal, Diminished functioning - Limitations Limitations: Living alone DSM 5 DX - DSM 5 DSM 5 Diagnosis: Schizoaffective disorder bipolar type Opiate Use disorder severe Opiate withdrawal Cannabis use disorder severe - Recommended/Plan of Treatment Treatment Recommendations and Plan of Treatment: Schizoaffective disorder bipolar type CBT Psychoeducation Supportive therapy, group therapy, individual therapy Risperdal 1 mg by mouth twice a day Cogentin 1 mg by mouth twice a day Buspar 10 mg by mouth twice a day Seroquel 200 mg by mouth daily at bedtime Opioid use disorder severe CBT Psychoeducation Supportive therapy, individual therapy Use GA for abstinence Opioid withdrawal CBT Psychoeducation Supportive therapy, individual therapy Clonidine when necessary Methadone taper Cannabis use disorder Severe Monitor signs and symptoms Use GA for abstinence - Smoking Cessation Smoking Cessation Initiated: No
[2017-09-06] MEDS ORDERED: Albuterol HFA 90 mcg/actuation (8 g) IH PRN (11:06)
[2017-09-07 05:47] VITALS: RESP 20
--- NOTE | 2017-09-07 15:32 | PCM.PYCHPN ---
Psychiatric Progress Note - Psychiatric Progress Note Patient seen today, length of contact: 15 minutes Patient Chief Complaint: I'm feeling much better with the treatment. Problems Identified/Issues Discussed: Patient seen, chart reviewed, case discussed with the staff. Issues related to illness and treatment were discussed with the patient and staff. Reported compliant with treatment with no adverse effects. Reported feeling much better with few withdrawal symptoms. Aftercare discussed with patient. At the time of evaluation, patient was awake, alert and oriented 3. Patient denied any delusions, auditory or visual hallucinations, suicidal ideations or homicidal ideations. Medical Problems: None reported Diagnostic Results: Reviewed DSM 5 Symptoms Update: Improving with treatment Medication Change: No Medical Record Reviewed: Yes Mental Status Examination - Cognitive Function Orientation: Person, Place, Situation, Time Memory: Intact Attention: WNL Concentration: WNL Association: WN Fund of Knowledge: [facility] Decription of patient's judgement and insights: Fair - Mood Mood: Anxious (Less than before) - Affect Affect: Other (Appropriate) - Speech Speech: Appropriate - Formal Thought Process Formal Thought Process: No Impairment Psychotic Thoughts and Behaviors: None - Suicidal Ideation Suicidal Ideation: No - Homicidal Ideation Homicidal Ideation: No Goal/Treatment Plan - Goal/Treatment Plan Need for Continued Stay: Remain at risks for inpatient hospitalization, Discharge may exacerbated symptoms, Severe functional impairment Progress Toward Problem(s) and Goals/Treatment Plan: Improving with treatment Patient education Supportive therapy CBT for relapse prevention Motivational interview for abstinence Continue treatment as before Estimated Date of D/C: 09/10/17 - Smoking Cessation Smoking Cessation Initiated: No
[2017-09-08] MEDS ORDERED: DiphenhydrAMINE 50 mg/ml Inj IM ONE (11:01)
--- NOTE | 2017-09-08 11:18 | PCM.PYCHPN ---
Psychiatric Progress Note - Psychiatric Progress Note Patient seen today, length of contact: 15 minutes Patient Chief Complaint: I need to be discharged Problems Identified/Issues Discussed: This is a 31 years old male with Schizoaffective d/o who was admitted on . He was seen and evaluated. He was pacing in the hallway. He was seen by using the park interpreter via phone. He reported that he is hearing voices. He was upset, agitated, loud, restless, threatened this MD, shows punch and demanded to be discharge. This MD made him aware that he cannot be discharged today because he needs to stabilize. After he was aggravated showed punch, restless and grabbed this MD phone from this MD hand and break it by throwing it on the floor. He was not redirectable, and Haldol 5 mg IM once with Benadryl 50 mg IM once given. DSM 5 Symptoms Update: Schizoaffective d/o, r/o Antisocial personality d/o Mental Status Examination - Cognitive Function Orientation: Person, Place, Situation, Time Memory: Intact Attention: WNL Concentration: Poor Association: Loose Fund of Knowledge: Poor Decription of patient's judgement and insights: poor/poor Addtional comments: irritable, loud, restless, agitated - Mood Mood: Depressed, Anxious - Affect Affect: Flat, Depressed - Speech Speech: Loud - Formal Thought Process Formal Thought Process: Hallucinations, Delusions, Paranoia, Loosening of associations Psychotic Thoughts and Behaviors: He appeared psychotic and internally preoccupied and responding to stimuli - Suicidal Ideation Plan: unable to assess - Homicidal Ideation Plan: unable to assess Goal/Treatment Plan - Goal/Treatment Plan Need for Continued Stay: Remain at risks for inpatient hospitalization, Severe functional impairment Progress Toward Problem(s) and Goals/Treatment Plan: Give Haldol 5 mg IM once, Benadryl 50 mg IM once for agitation, psychosis. Continue treatment as per primary team.
[2017-09-08] MEDS ORDERED: Divalproex 500 mg DR Tab PO SCH (18:00)
[2017-09-09 06:03] VITALS: BP 109/68; PULSE 57; TEMP 97.6; O2SAT 98
--- NOTE | 2017-09-09 09:55 | PCM.PYCHDC ---
Mental Status Examination - Mental Status Examination Orientation: Person, Place, Situation, Time Memory: Intact Mood: Neutral Affect: Constricted Speech: Soft Attention: WNL Concentration: WNL Association: WNL Fund of Knowledge: WNL Formal Thought Process: No Impairment Description of patient's judgement and insight: good, fair Psychotic Thoughts and Behaviors: denies any AVH Suicidal Ideation: No Current Homicidal Ideation?: No Discharge Summary - Discharge Note Reason for Hospitalization: This is a 31 years old male, who came to the ED with auditory hallucinations and suicidal ideation. Patient is well known to the [facility]. Patient has a long history of schizophrenia and heroin abuse. He was just recently discharged from the hospital. As per the patient's at discharge he stopped taking his medications and he relapsed on heroin. As per the ED notes, 'Pt presented in the ED with his girlfriend who reported that patient expressed suicidal intent today due to both social stressors and his inability to abstain from illicit chemical substances. Pt at time of contact was irritable, uncooperative and upset over recent reported stressors. Pt as reported by his girlfriend has been non- compliant with his mood stabilizer and anti-psychotics for the last several weeks. Pt has been self-medicating with Heroin and is now abusing over 15 bags daily. Pt at this time reported planning to cut both wrists as to end his suffering and life. Pt's girlfriend expressed concerns as she mentioned that patient is severely depressed and at risk for self-harm. Observation of cuts to patient wrist and left forearm were noticeable during time of contact. Pt reported that he began to self-mutilate last week at a detention in [place], [place]. Pt appeared to be in psychiatric distress due to continued endorsement of suicidal intent and recent disturbances in mood. behavior and demeanor. Today patient remained depressed, delusional and suicidal. Reports depressed mood and feelings of hopelessness and helplessness. He also reports auditory hallucinations command type to kill himself. As per the patient, he stole a gun from the police, sold it and now he is going to face the legal charges. Reports withdrawal symptoms from heroin including nausea, vomiting, back pains, abdominal cramps, sweating & anxiety. Consultations:: List each consultation separately and include: 1. Reason for request. 2. Findings. 3. Follow-up Summary of Hospital Course include:: 1. Description of specific treatment plan utilized for patients during their course of treatmen. 2. Summarize the time- course for resolution of acute symptoms and/or regressed behaviors. 3. Describe issues identified and worked on during hospitalization. 4. Describe medication utilized. 5. Describe medical problems identified and treated. 6. Reassessment of suicide risk Summary of Hospital Course: During the course of his stay, patient (pt) started progressively improving and he no longer remained irritable, depressed, and paranoid. His mood and anxiety symptoms were improved and he started attending groups and meetings and started socializing. Patient denied any feelings of hopelessness, helplessness, and worthlessness, denied any problem with the sleep or appetite, denied suicidal ideation or homicidal ideation. Pt denied any auditory or visual hallucinations. As per the staff, pt wanted to leave on Saturday, when the psychiatrist refused his discharge, he became angry and increasingly agitated and smashed the cell phone of the doctor. Some changes were made in his current medications and patient was discharged on following medications. He tolerated these medications very well and denied any side effects. Pt is to be picked up by his sister today and she will transport him to [place], where he will receive treatment. - Diagnosis (1) Schizoaffective disorder Status: Acute (2) Heroin abuse Status: Acute - Final Diagnosis (DSM 5) Condition upon Discharge: STABLE DSM 5: Schizoaffective disorder bipolar type Opioid use disorder severe Opioid withdrawal Cannabis use disorder Severe Disposition: HOME/ ROUTINE Follow-up Treatment Plan: Education: Pt was educated and counseled about the risks and benefits of taking and not taking medications. Pt was educated and counseled about the risks of drinking and abusing drugs. Pt was educated and counseled to go to the ER or call 911 if pt develop suicidal ideation or homicidal ideation, worsening of symptoms or severe side effects of the meds. Prescriptions/Medication Reconciliation: Albuterol HFA [Ventolin HFA 90 mcg/actuation (8 g)] 2 puff IH Q4 PRN #1 unit PRN Reason: Shortness Of Breath Benztropine [Cogentin] 2 mg PO BID PRN #60 tab PRN Reason: Extra Pyramidal Symptoms Divalproex [Depakote DR] 500 mg PO BID #60 tcp QUEtiapine [Seroquel] 200 mg PO HS #30 tab risperiDONE [RisperDAL Tab] 2 mg PO BID #60 tab - Smoking Cessation Smoking Cessation Medication prescribed: No - Antipsychotic Medications Pt discharged on 2 or more routine antipsychotic medications: No
== END 2017-09-09 09:40 | disposition home or self-care (01) | DRG 885 ==
LOC: C.ER 10:43 → C.5E 12:45
PROVIDERS: ADMIT Psychiatry & Neurology Psychiatry; ATTEND Psychiatry & Neurology Psychiatry
PROC: HZ2ZZZZ Detoxification Services for Substance Abuse Treatment (ICD-10-PCS; principal; 2017-09-05)
DX: F25.0 Schizoaffective disorder, bipolar type (principal); R45.851 Suicidal ideations; Z91.19 Patient's noncompliance with other medical treatment and regimen; F11.23 Opioid dependence with withdrawal; F41.9 Anxiety disorder, unspecified; F12.10 Cannabis abuse, uncomplicated; F17.210 Nicotine dependence, cigarettes, uncomplicated

== ENCOUNTER 2018-01-06 12:12 | Emergency (ER) | payer MEDICARE, MEDICAID ==
[2018-01-06 12:13] VITALS: BMI 28.8
[2018-01-06 13:04] VITALS: BP 123/58; PULSE 92; RESP 18; TEMP 98.8; O2SAT 95
--- NOTE | 2018-01-06 13:22 | C.PDOC ---
Time Seen by Provider: 01/06/18 12:57 Chief Complaint (Nursing): Substance Abuse Past Medical History Reviewed: Historical Data, Nursing Documentation, Vital Signs Vital Signs: Last Vital Signs Temp 98.8 F 01/06/18 12:55 Pulse 92 H 01/06/18 12:55 Resp 18 01/06/18 12:55 BP 123/58 L 01/06/18 12:55 Pulse Ox 95 01/06/18 12:55 - Medical History PMH: Anxiety, Depression, Pancreatitis (alt 93), Schizophrenia Denies: Alzheimer's Disease, Asthma, Atrial Fibrillation, Bronchitis, Cardia Arrhythmia, CHF, COPD, Dementia, Diabetes, Emphysema, Hepatitis, HIV, HTN, Hypercholesterolemia, Hyperthyroidism, Hypothyroidism, Kidney Stones, Migraine, Mitral Valve Prolapse, Multiple Sclerosis, Parkinson's Disease, Peripheral Edema , Pneumonia, Pulmonary Embolism, Chronic Kidney Disease, Seizures, Sexually Transmitted Disease, Sleep Apnea, TIA Surgical History: Denies: Pacemaker - [facility] Procedures DETOXIFICATION SERVICES FOR SUBSTANCE ABUSE TREATMENT (09/05/17) GROUP SUSTAINABILITY COORDINATOR FOR SUBSTANCE ABUSE TREATMENT, PSYCHOEDUCATION (06/04/17) GROUP PSYCHOTHERAPY (06/04/17) INDIV PSYCHOTHERAPY FOR SUBSTANCE ABUSE TREATMENT, SUPPORT (06/04/17) INDIV PSYCHOTHERAPY FOR SUBSTANCE ABUSE, COGNITIV BEHAVIORAL (01/01/17) INDIV PSYCHOTHERAPY FOR SUBSTANCE ABUSE, PSYCHOEDUCATION (12/11/16) INDIVIDUAL PSYCHOTHERAPY, COGNITIVE-BEHAVIORAL (01/01/17) INDIVIDUAL PSYCHOTHERAPY, SUPPORTIVE (06/04/17) MEDICATION MANAGEMENT (06/04/17) Family History: States: No Known Family Hx - Social History Hx Tobacco Use: Yes Hx Alcohol Use: No Hx Substance Use: Yes - Immunization History Hx Tetanus Toxoid Vaccination: No Hx Influenza Vaccination: No Hx Pneumococcal Vaccination: No ED Course And Treatment O2 Sat by Pulse Oximetry: 95 Disposition - Disposition - Scribe Statement The provider has reviewed the documentation as recorded by the Scribe (Olivia North) All medical record entries made by the Scribe were at my direction and personally dictated by me. I have reviewed the chart and agree that the record accurately reflects my personal performance of the history, physical exam, medical decision making, and the department course for this patient. I have also personally directed, reviewed, and agree with the discharge instructions and disposition.
--- NOTE | 2018-01-06 13:52 | C.PDOC ---
History Of Present Illness 32-year-old male, is brought to the emergency department by BLS with complaints of heroin use. patient found on street, and comes in requesting detox. Patient is awake and alert in ER. Last use was prior to arrival. Denies any HI/SI, chest pain or any other associated symptoms. No other complaints at this time. Time Seen by Provider: 01/06/18 12:57 Chief Complaint (Nursing): Substance Abuse History Per: Patient History/Exam Limitations: no limitations Recent travel outside of the [place]: No Past Medical History Reviewed: Historical Data, Nursing Documentation, Vital Signs Vital Signs: Last Vital Signs Temp 98.8 F 01/06/18 12:55 Pulse 92 H 01/06/18 12:55 Resp 18 01/06/18 12:55 BP 123/58 L 01/06/18 12:55 Pulse Ox 95 01/06/18 18:45 - Medical History PMH: Anxiety, Depression, Pancreatitis (alt 93), Schizophrenia - [facility] Procedures DETOXIFICATION SERVICES FOR SUBSTANCE ABUSE TREATMENT (09/05/17) GROUP PUGGER HELPER FOR SUBSTANCE ABUSE TREATMENT, PSYCHOEDUCATION (06/04/17) GROUP PSYCHOTHERAPY (06/04/17) INDIV PSYCHOTHERAPY FOR SUBSTANCE ABUSE TREATMENT, SUPPORT (06/04/17) INDIV PSYCHOTHERAPY FOR SUBSTANCE ABUSE, COGNITIV BEHAVIORAL (01/01/17) INDIV PSYCHOTHERAPY FOR SUBSTANCE ABUSE, PSYCHOEDUCATION (12/11/16) INDIVIDUAL PSYCHOTHERAPY, COGNITIVE-BEHAVIORAL (01/01/17) INDIVIDUAL PSYCHOTHERAPY, SUPPORTIVE (06/04/17) MEDICATION MANAGEMENT (06/04/17) Family History: States: No Known Family Hx - Social History Hx Tobacco Use: Yes Hx Alcohol Use: No Hx Substance Use: Yes - Immunization History Hx Tetanus Toxoid Vaccination: No Hx Influenza Vaccination: No Hx Pneumococcal Vaccination: No Review Of Systems Except As Marked, All Systems Reviewed And Found Negative. Constitutional: Negative for: Fever, Chills Cardiovascular: Negative for: Chest Pain Respiratory: Negative for: Shortness of Breath Gastrointestinal: Negative for: Vomiting Neurological: Negative for: Numbness Psych: Negative for: Suicidal ideation, Withdrawal Physical Exam - Physical Exam Appears: Non-toxic, No Acute Distress, Other (calm, cooperative.) Skin: Warm, Dry, No Rash Head: Normacephalic Eye(s): bilateral: PERRL Nose: Normal Oral Mucosa: Moist Lips: Normal Appearing Neck: Normal ROM Cardiovascular: Rhythm Regular, No Murmur Respiratory: Normal Breath Sounds, No Accessory Muscle Use Extremity: Normal ROM, No Deformity, No Swelling Neurological/Psych: Oriented x3, Normal Speech ED Course And Treatment O2 Sat by Pulse Oximetry: 95 (RA) Pulse Ox Interpretation: Normal Progress Note: The physical exam is negative. The patient is not intoxicated at this time and is safe for discharge. Disposition - Disposition Referrals: [facility] [Outside] Disposition: HOME/ ROUTINE Disposition Time: 13:51 Condition: GOOD Additional Instructions: There are no detox beds. Prescriptions: Lorazepam [Ativan] 0.5 mg PO DAILY #5 tab Instructions: Schizophrenia Forms: [employer] (Icelandic) - Clinical Impression Clinical Impression: Drug dependence, Drug abuse, Schizophrenia - Scribe Statement The provider has reviewed the documentation as recorded by the Scribe (Olivia crandall) All medical record entries made by the Scribe were at my direction and personally dictated by me. I have reviewed the chart and agree that the record accurately reflects my personal performance of the history, physical exam, medical decision making, and the department course for this patient. I have also personally directed, reviewed, and agree with the discharge instructions and disposition.
== END 2018-01-06 14:30 | disposition home or self-care (01) ==
LOC: C.ER 12:12
DX: F11.20 Opioid dependence, uncomplicated (principal); F20.9 Schizophrenia, unspecified

== ENCOUNTER 2018-02-04 11:14 | Emergency (ER) | payer MEDICARE, MEDICAID ==
[2018-02-04 11:15] VITALS: BMI 28.8
[2018-02-04 11:24] VITALS: RESP 18; TEMP 98.2; O2SAT 97
[2018-02-04] MEDS ORDERED: Lidocaine 1%/Epinephrine 1:100000 30 ml vial IJ ONE (11:55)
--- NOTE | 2018-02-04 11:56 | C.PDOC ---
History Of Present Illness 32yo male, presents to ED with complaints of right eye injury at approximately 4am this morning. Patient states he fell and struck his right eye against a cabinet, sustaining an injury. He denies any loss of consciousness, and vision changes. Patient has no other medical complaints. PMD: oJsemanuel Braswell Time Seen by Provider: 02/04/18 11:45 Chief Complaint (Nursing): Eye Problem History Per: Patient History/Exam Limitations: no limitations Onset/Duration Of Symptoms: Hrs Current Symptoms Are (Timing): Still Present Past Medical History Reviewed: Historical Data, Nursing Documentation, Vital Signs Vital Signs: Last Vital Signs Temp 98.2 F 02/04/18 11:21 Pulse 90 02/04/18 12:49 Resp 18 02/04/18 12:49 BP 118/72 02/04/18 12:49 Pulse Ox 97 02/04/18 12:49 - Medical History PMH: Anxiety, Depression, Pancreatitis (alt 93), Schizophrenia Surgical History: No Surg Hx - [facility] Procedures DETOXIFICATION SERVICES FOR SUBSTANCE ABUSE TREATMENT (09/05/17) GROUP MICROCOMPUTER TECHNICIAN FOR SUBSTANCE ABUSE TREATMENT, PSYCHOEDUCATION (06/04/17) GROUP PSYCHOTHERAPY (06/04/17) INDIV PSYCHOTHERAPY FOR SUBSTANCE ABUSE TREATMENT, SUPPORT (06/04/17) INDIV PSYCHOTHERAPY FOR SUBSTANCE ABUSE, COGNITIV BEHAVIORAL (01/01/17) INDIV PSYCHOTHERAPY FOR SUBSTANCE ABUSE, PSYCHOEDUCATION (12/11/16) INDIVIDUAL PSYCHOTHERAPY, COGNITIVE-BEHAVIORAL (01/01/17) INDIVIDUAL PSYCHOTHERAPY, SUPPORTIVE (06/04/17) MEDICATION MANAGEMENT (06/04/17) Family History: States: No Known Family Hx, Unknown Family Hx - Social History Hx Tobacco Use: Yes Hx Alcohol Use: No Hx Substance Use: Yes (LAST USED YESTERDAY) - Immunization History Hx Tetanus Toxoid Vaccination: No Hx Influenza Vaccination: No Hx Pneumococcal Vaccination: No Review Of Systems Except As Marked, All Systems Reviewed And Found Negative. Eyes: Positive for: Other (right eye injury). Negative for: Vision Change Neurological: Negative for: Other (loss of consciousness) Physical Exam - Physical Exam Appears: Non-toxic, No Acute Distress Skin: Normal Color, Warm, Dry Head: Atraumatic, Normacephalic Eye(s): bilateral: PERRL, EOMI, right: Other (2cm superficial laceration to right upper eyelid; there is no involvement of the lacrimal canthus, patient is able to fully close the eye. Mild swelling noted to perioribtal area, no periorbital tenderness or crepitus), left: Normal Inspection Nose: Normal, No Epistaxis, No Deformity, No Tenderness Oral Mucosa: Moist Lips: Normal Appearing, No Laceration Teeth: Normal Dentition, No Loose, No Avulsed Neck: Normal ROM Chest: Symmetrical Neurological/Psych: Oriented x3, Normal Speech ED Course And Treatment O2 Sat by Pulse Oximetry: 97 (RA) Pulse Ox Interpretation: Normal Laceration - Laceration Repair Right eyelid Wound Length (In cm): 2 Description Of Wound: Linear, Clean Wound Cleansed With: Sterile Saline (200ml) Anesthesia: Lidocaine 1%, With Epi Wound Examination: Irrigated With Saline, No FB With Wound Exploration Suture Technique And Material Used: Interrupted (3), Vicryl (6-0) Wound Complexity: Simple Medical Decision Making Medical Decision Making: Impression: Laceration of right eyelid Dr Hart also examined the patient and agreed the patient needs suture repair and can be done in ER. I obtained verbal consent for laceration repair, and discussed the risks including bleeding, infection, scarring and possible damage to deeper structures. THe patient agreed to repair. Laceration repair done (see procedure note). 2ml 1% Lidocaine with Epi used for local anesthesia. Wound closed with 3 interrupted sutures of 6-0 vicryl. Bacitracin was applied. Patient tolerated procedures well. I instructed on wound care and advised on wound check in 1-[address] optho [address] Jara or return to ER. Patient expressed understanding and all questions answered. Disposition Counseled Patient/Family Regarding: Diagnosis, Need For Followup - Disposition Referrals: [facility] [Outside] Jhon Jara MD [Staff Provider] - Disposition: HOME/ ROUTINE Disposition Time: 12:45 Condition: GOOD Additional Instructions: Your laceration was repaired with absorbable sutures Can apply antibiotic ointment daily Please have your wound check in 1-2 days by eyeglass lens cutter or clinic Return to the emergency department at any time if symptoms persist or worsen. Return to ER if fever occurs, redness or swelling around wound, pus in the wound. Molina laceracin fue reparada con suturas absorbibles Puede aplicar ungento antibitico diariamente Por favor, hgase el chequeo de molina herida en 1-2 galarza por un oftalmlogo o cl kristina Regrese al departamento de emergencia en cualquier momento si los sntomas persisten o empeoran. Vuelva a la amanda de emergencias si presenta fiebre, enrojecimiento o hinchazn alrededor de la herida, pus en la herida. Instructions: Laceration Repair With Stitches (DC) Forms: [employer] (Salvadorean) Print Language: TELUGU - POA Present On Arrival: Falls Or Trauma - Clinical Impression Clinical Impression: Laceration, eyelid, right - PA / FULL STACK SOFTWARE DEVELOPER / Resident Statement MD/DO has reviewed & agrees with the documentation as recorded. - Scribe Statement The provider has reviewed the documentation as recorded by the Scribe (Deisy Pereira) Provider Attestation: All medical record entries made by the Scribe were at my direction and personally dictated by me. I have reviewed the chart and agree that the record accurately reflects my personal performance of the history, physical exam, medical decision making, and the department course for this patient. I have also personally directed, reviewed, and agree with the discharge instructions and disposition.
[2018-02-04] MEDS ORDERED: Bacitracin 500 Units/gm Oint Foilpak UD TOP ONE (12:26)
[2018-02-04] MEDS ORDERED: Bacitracin 500 Units/gm Oint Foilpak UD ONE (12:31)
[2018-02-04 12:50] VITALS: BP 118/72; PULSE 90
== END 2018-02-04 12:50 | disposition home or self-care (01) ==
LOC: C.ER 11:14
DX: S01.111A Laceration without foreign body of right eyelid and periocular area, initial encounter (principal); W18.30XA Fall on same level, unspecified, initial encounter

== ENCOUNTER 2018-02-10 09:23 | Inpatient (IN) | payer MEDICARE, MEDICAID ==
[2018-02-10 09:23] VITALS: BMI 28.8
[2018-02-10 10:34] LABS: URINE BILIRUBIN NEGATIVE (NEGATIVE); URINE BLOOD NEGATIVE (NEGATIVE); URINE CLARITY Clear (Clear); URINE COLOR Yellow (YELLOW); URINE GLUCOSE (UA) NORMAL (Normal); URINE LEUKOCYTE ESTERASE NEG Leu/uL (Negative); URINE PROTEIN NEGATIVE (NEGATIVE); URINE UROBILINOGEN NORMAL mg/dL (0.2-1.0)
[2018-02-10 10:47] LABS: BASO % 0.5 % (0.0-2.0); EOS % 0.1 % (0.0-4.0); HEMOGLOBIN 14.9 g/dL (12.0-18.0); LYMPH % 12.7 % (20.0-40.0); MEAN CELL VOLUME 88.6 fL (80.0-94.0); MEAN CORPUSCULAR HEMOGLOBIN 31.1 pg (27.0-31.0); MEAN CORPUSCULAR HGB CONC 35.1 g/dL (33.0-37.0); MEAN PLATELET VOLUME 8.4 fL (7.2-11.7); MONO # 0.3 K/uL (0.0-0.8); NEUT # 6.7 K/uL (1.8-7.0); NEUT % 82.7 % (50.0-75.0); NRBC % 0.1 % (0.0-2.0); RBC 4.79 Mil/uL (4.40-5.90); RED CELL DISTRIBUTION WIDTH 13.4 % (11.5-14.5); WHITE BLOOD COUNT 8.1 K/uL (4.8-10.8)
[2018-02-10 11:07] LABS: ALB/GLOB RATIO 1.3 (1.0-2.1); ALBUMIN 4.7 g/dL (3.5-5.0); ALT/SGPT 144 U/L (21-72); AST/SGOT 105 U/L (17-59); BLOOD UREA NITROGEN 11 mg/dL (9-20); CALCIUM 9.6 mg/dl (8.6-10.4); GFR AFRICAN-AMERICAN > 60; GFR NON-AFRICAN AMERICAN > 60
[2018-02-10 11:38] LABS: BARBITURATES, UR NEGATIVE (NEGATIVE); BENZODIAZEPINES, UR NEGATIVE (NEGATIVE); PHENCYCLIDINE, UR NEGATIVE (NEGATIVE)
[2018-02-10 11:57] LABS: OPIATES, UR POSITIVE (NEGATIVE)
--- NOTE | 2018-02-10 11:58 | C.PDOC ---
History Of Present Illness 32-year-old male, presents to the emergency department with complaints of suicidal ideation. Patient states he is using Heroin and has a plan to cut himself. Patient has a Hx of cutting. Denies any HI. Time Seen by Provider: 02/10/18 09:53 Chief Complaint (Nursing): Psychiatric Evaluation History Per: Patient History/Exam Limitations: no limitations Past Medical History Reviewed: Historical Data, Nursing Documentation, Vital Signs Vital Signs: Last Vital Signs Temp 98.3 F 02/10/18 09:33 Pulse 84 02/10/18 09:33 Resp 20 02/10/18 09:33 BP 142/72 02/10/18 09:33 Pulse Ox 100 02/10/18 11:58 - Medical History PMH: Anxiety, Depression, Pancreatitis, Schizophrenia - [facility] Procedures DETOXIFICATION SERVICES FOR SUBSTANCE ABUSE TREATMENT (09/05/17) GROUP [facility] FOR SUBSTANCE ABUSE TREATMENT, PSYCHOEDUCATION (06/04/17) GROUP PSYCHOTHERAPY (06/04/17) INDIV PSYCHOTHERAPY FOR SUBSTANCE ABUSE TREATMENT, SUPPORT (06/04/17) INDIV PSYCHOTHERAPY FOR SUBSTANCE ABUSE, COGNITIV BEHAVIORAL (01/01/17) INDIV PSYCHOTHERAPY FOR SUBSTANCE ABUSE, PSYCHOEDUCATION (12/11/16) INDIVIDUAL PSYCHOTHERAPY, COGNITIVE-BEHAVIORAL (01/01/17) INDIVIDUAL PSYCHOTHERAPY, SUPPORTIVE (06/04/17) MEDICATION MANAGEMENT (06/04/17) Family History: States: No Known Family Hx - Social History Hx Tobacco Use: Yes Hx Alcohol Use: No Hx Substance Use: Yes (last use yesterday) - Immunization History Hx Tetanus Toxoid Vaccination: No Hx Influenza Vaccination: Yes Hx Pneumococcal Vaccination: No Review Of Systems Constitutional: Negative for: Fever, Chills Cardiovascular: Negative for: Chest Pain Respiratory: Negative for: Shortness of Breath Gastrointestinal: Negative for: Vomiting Neurological: Negative for: Weakness, Numbness Psych: Positive for: Suicidal ideation. Negative for: Psychosis, Withdrawal Physical Exam - Physical Exam Appears: Non-toxic, No Acute Distress Skin: Normal Color, Warm, Dry, No Rash Head: Normacephalic Eye(s): bilateral: PERRL Nose: Normal Oral Mucosa: Moist Lips: Normal Appearing Neck: Normal ROM Chest: Symmetrical Cardiovascular: Rhythm Regular, No Murmur Respiratory: Normal Breath Sounds, No Accessory Muscle Use Extremity: Normal ROM, No Deformity, No Swelling Neurological/Psych: Oriented x3, Normal Speech ED Course And Treatment - Laboratory Results Result Diagrams: 02/10/18 10:40 02/10/18 10:40 O2 Sat by Pulse Oximetry: 100 (RA) Pulse Ox Interpretation: Normal Medical Decision Making Medical Decision Making: The patient is medically cleared for psych eval and/or admission. Disposition - Disposition Disposition: HOSPITALIZED Disposition Time: 12:53 Condition: STABLE Forms: [facility] (Venezuelan) - Clinical Impression Clinical Impression: Depression, Cocaine abuse, Heroin abuse - Scribe Statement The provider has reviewed the documentation as recorded by the Scribe (Olivia North) All medical record entries made by the Scribe were at my direction and personally dictated by me. I have reviewed the chart and agree that the record accurately reflects my personal performance of the history, physical exam, medical decision making, and the department course for this patient. I have also personally directed, reviewed, and agree with the discharge instructions and disposition.
--- NOTE | 2018-02-10 13:59 | PCM.BM ---
<Josephine Orr - Last Filed: 02/10/18 13:57> Treatment Plan Problems - Problems identified on initial assessmt Depression Date Initiated: 02/10/18 Time Initiated: 13:58 Assessment reference: NA Status: Active Substance Abuse Date Initiated: 02/10/18 Time Initiated: 13:58 Assessment reference: NA Status: Active Treatment assets and liabiliti Patient Assests: adapts well, cooperative, ADL independent, physically healthy, negotiates basic needs, financial stabiity, cognitively intact Patient Liabilities: live alone (Homeless), financial problems, poor support system, substance abuse (Cocaine, Opiates, Heroin), medical problems (Hep C), language/speech (Mauritian speaking) - Milieu Protocol Maintain good personal hygiene: daily Encourage regular showers, daily Remind patient to perform daily oral care, daily Assist patient to perform ADL's (Self) Conduct patient checks and document Observation sheet: Q15 minutes (Safety) Maintain personal safety: every shift Educate patient to report safety concerns to staff, every shift Monitor environment for contraband/sharps Medication safety: Monitor for expected outcome, potential side effects: every shift, Assess barriers to learning: every shift, Assess readiness for medication education: every shift <Dominick Lara - Last Filed: 02/12/18 11:12> - Diagnosis (1) Schizoaffective disorder Status: Acute Interventions: 02/12/18 11:12 * Assess/adjust medications daily and /or as needed * See patient on an individual basis 7x/week to assess status of hallucinations * Discuss risks, benefits, side effects and alternatives of medications * (2) Heroin abuse Status: Acute Interventions: 02/12/18 11:12 * Assess 7x/week regarding severity of withdrawal * Educate regarding risks, benefits, side effects and alternatives of medications * Use Motivational Interviewing for abstinence * Use CBT for relapse prevention * Medication management for withdrawal symptoms * Encourage medication assisted treatment * <Kristie León - Last Filed: 02/12/18 13:00> Family Contact Family involvement: Famliy/SO not involved - Goals for Treatment Patient goals for treatment: "I want to go to rehab." Discharge/Continuing Care - Education Needs Education Needs: Patient Medication, Patient Coping Skills, Patient Placement options, Patient Community resources - Discharge Discharge Criteria: Tolerates medication w/o severe side effects, Free of Suicidal thoughts, No longer exhibiting s/s of withdrawal, Reduction of target symptoms Discharge to:: Substance Abuse Rehab - Treatment Team Participation Discussed with Family/SO: No Was Patient/Family/SO present at Treatment Team Meeting: Yes
[2018-02-10] MEDS ORDERED: Aluminum Hydroxide/Magnesium Hydroxide Susp (30 mL) PO PRN (17:45)
[2018-02-10 19:01] VITALS: O2SAT 100
--- NOTE | 2018-02-11 10:00 | PCM.PSYCH ---
Initial Psychiatric Evaluation - Initial Psychiatric Evaluation Type of Admission: Voluntary Legal Status: Capacity Chief Complaint (in patient's own words): I started hearing voices to kill myself.' History of Present Illness and Precipitating Events: Patient is a 32 year old single male, who is currently unemployed, came to the hospital with suicidal ideations with a plan to cut himself. functional tester typewriters is familiar with this patient. He has history of multiple psychiatric hospitalizations. He was just discharged from [facility] 5 E few months ago. As per the patient soon after discharge, he stopped taking his medications and relapsed on heroin cocaine and marijuana. Patient reports of abusing 5-10 bags of heroin along with 10-50 or cocaine daily. Patient said he's been feeling bad for 2 days and waited to come because he "was holding it on". Patient reports withdrawal symptoms from heroine including nausea, vomiting, diarrhea, sweating, and joint pains. He reports depressed mood, irritability, agitation poor sleep and suicidal ideations with a plan to cut himself. He also reports auditory hallucinations, a voice telling him to "hurt himself" and visual hallucinations, shadows. He also reports paranoia that he feels like people are looking at him and following him. Past medical history none reported Current Medications: Active Medications Generic Name Dose Route Start Last Admin Trade Name Freq PRN Reason Stop Dose Admin Al Hydrox/Mg Hydrox/Simethicone 30 ml 02/10/18 17:45 Maalox 30 Ml PO TID PRN Indigestion / Heartburn Buspirone HCl 10 mg 02/10/18 18:00 02/10/18 18:41 Buspar PO Not Given TID MAIRA Clonidine HCl 0.1 mg 02/10/18 17:45 02/10/18 19:05 Catapres PO 0.1 mg Q8 PRN Administration COWS Score More or Equal to 5 Divalproex Sodium 500 mg 02/11/18 10:00 Depakote Er PO DAILY MAIRA Hydroxyzine HCl 25 mg 02/10/18 17:51 Atarax PO Q6 PRN Anxiety Loperamide HCl 2 mg 02/10/18 17:45 Imodium PO Q8 PRN Diarrhea Ondansetron HCl 4 mg 02/10/18 17:45 Zofran Tab PO Q8 PRN Nausea/Vomiting Pneumococcal Polyvalent Vaccine 0.5 ml 02/13/18 10:00 Pneumovax 23 Vaccine IM 02/13/18 10:01 .ONCE ONE Pseudoephedrine HCl 60 mg 02/10/18 17:45 Sudafed Tab PO QID PRN Nasal/Sinus Congestion Quetiapine Fumarate 200 mg 02/10/18 22:00 02/10/18 21:10 Seroquel PO 200 mg HS MAIRA Administration Past Psychiatric History - Past Psychiatric History Previous Treatment History: Inpatient Pertinent Medical Hx (Current Medical&Sleep Prob, Allergies): Allergies Allergy/AdvReac Type Severity Reaction Status Date / Time No Known Allergies Allergy Verified 02/04/18 11:25 Divalproex [Depakote ER] 500 mg PO DAILY 02/10/18 Quetiapine Fumarate [Seroquel] 200 mg PO HS 02/10/18 busPIRone [Buspar] 10 mg PO TID 02/10/18 Review of Systems - Review of Systems All systems: reviewed and no additional remarkable complaints except - Psychiatric Psychiatric: Anxiety, Auditory Hallucinations, Hopelessness, Irritability, Mood Swings, Suicidal Ideation Mental Status Examination - Personal Presentation Personal Presentation: Looks stated age - Affect Affect: Broad - Motor Activity Motor Activity: Psychomotor Agitation - Reliability in Providing Information Reliability in Providing Information: Poor, due to alteration in thoughts, Poor , due to altered mood - Speech Speech: Disorganized - Mood Mood: Depressed, Anxious - Formal Thought Process Formal Thought Process: Hallucinations, Delusions, Paranoia, Loosening of associations, Flight of ideas - Hallucinations/Delusions Hallucinations: Visual, Auditory Delusions: Persecution - Obsessions/Compulsions Obsessions: No Compulsions: No - Cognitive Functions Orientation: Person, Place, Situation, Time Sensorium: Alert Attention/Concentration: Attentive Abstract Thinking: [place] Estimate of Intelligence: Below average Judgement: Imparied, as evidence by: Poor judgement, Imparied, as evidence by: Lack of insight into illness - Risk Risk: Suicidal, Withdrawal, Diminished functioning - Strength & Assets Inventory Strength & Assets Inventory: Life experience - Limitations Limitations: Living alone DSM 5 DX - DSM 5 DSM 5 Diagnosis: Bipolar disorder MRE depressed severe without psychotic features Opioid use disorder severe Opioid withdrawal Cannabis use disorder severe Cocaine use disorder severe - Recommended/Plan of Treatment Treatment Recommendations and Plan of Treatment: Schizoaffective disorder bipolar type -CBT -Psychoeducation -Supportive therapy, group therapy, individual therapy -Buspar 10 mg PO TID -Depakote 500 mg by mouth daily -Seroquel 200 mg PO QHS Opioid use disorder severe -CBT -Psychoeducation -Supportive therapy, individual therapy -Use [place] for abstinence Opioid withdrawal -CBT -Psychoeducation -Supportive therapy, individual therapy -Clonidine when necessary -Methadone taper Cannabis use disorder Severe -Monitor signs and symptoms -Use [place] for abstinence Cocaine use disorder Severe -Monitor signs and symptoms -Use [place] for abstinence - Smoking Cessation Smoking Cessation Initiated: No
[2018-02-11] MEDS: Divalproex 500 mg ER Tab PO SCH (10:25)
[2018-02-12] MEDS: Divalproex 500 mg ER Tab PO SCH (09:59)
--- NOTE | 2018-02-12 14:55 | PCM.PYCHPN ---
Psychiatric Progress Note - Psychiatric Progress Note Patient seen today, length of contact: 15 min Patient Chief Complaint: I m still hearing voices.' Problems Identified/Issues Discussed: Patient seen and evaluated, chart reviewed and discussed with the nurse. Today patient appears more organized and less delusions and paranoia. He reports irritability and agitation. He reports withdrawal symptoms including cramps, sweating, headaches anxiety. He is taking medication and denies any side effects. Symptoms are improving but he needs more time for stabilization Supportive therapy and psychoeducation were given Medication Change: Yes (Start Risperdal) Medical Record Reviewed: Yes Mental Status Examination - Cognitive Function Orientation: Person, Place, Situation, Time Memory: Intact Attention: WNL Concentration: Poor Association: Loose Fund of Knowledge: WNL - Mood Mood: Depressed, Anxious - Affect Affect: Broad - Speech Speech: Soft - Formal Thought Process Formal Thought Process: Delusions, Paranoia, Loosening of associations - Suicidal Ideation Suicidal Ideation: No - Homicidal Ideation Homicidal Ideation: No Goal/Treatment Plan - Goal/Treatment Plan Need for Continued Stay: Severe depression anxiety, Severe functional impairment Progress Toward Problem(s) and Goals/Treatment Plan: Schizoaffective disorder bipolar type -CBT -Psychoeducation -Supportive therapy, group therapy, individual therapy -Buspar 10 mg PO TID -Discontinue Depakote 500 mg by mouth daily -Seroquel 200 mg PO QHS -Start Risperdal 2 mg by mouth twice a day Opioid use disorder severe -CBT -Psychoeducation -Supportive therapy, individual therapy -Use [place] for abstinence Opioid withdrawal -CBT -Psychoeducation -Supportive therapy, individual therapy -Clonidine when necessary -Methadone taper Cannabis use disorder Severe -Monitor signs and symptoms -Use [place] for abstinence Cocaine use disorder Severe -Monitor signs and symptoms -Use [place] for abstinence - Smoking Cessation Smoking Cessation Initiated: No
[2018-02-13 06:30] VITALS: TEMP 97.6
[2018-02-13] MEDS ORDERED: Pneumococcal 23-Valent Vaccine IM ONE (10:00)
--- NOTE | 2018-02-13 16:38 | PCM.PYCHPN ---
Psychiatric Progress Note - Psychiatric Progress Note Patient seen today, length of contact: 15 min Patient Chief Complaint: I m still hearing voices.' Problems Identified/Issues Discussed: Patient seen and evaluated, chart reviewed and discussed with the nurse. Today patient appears more organized and less delusions and paranoia. He reports irritability and agitation. He reports withdrawal symptoms including cramps, sweating, headaches anxiety. He is taking medication and denies any side effects. Symptoms are improving but he needs more time for stabilization Supportive therapy and psychoeducation were given Medication Change: Yes (Start Risperdal) Medical Record Reviewed: Yes Mental Status Examination - Cognitive Function Orientation: Person, Place, Situation, Time Memory: Intact Attention: WNL Concentration: Poor Association: Loose Fund of Knowledge: WNL - Mood Mood: Depressed, Anxious - Affect Affect: Broad - Speech Speech: Soft - Formal Thought Process Formal Thought Process: Delusions, Paranoia, Loosening of associations - Suicidal Ideation Suicidal Ideation: No - Homicidal Ideation Homicidal Ideation: No Goal/Treatment Plan - Goal/Treatment Plan Need for Continued Stay: Severe depression anxiety, Severe functional impairment Progress Toward Problem(s) and Goals/Treatment Plan: Schizoaffective disorder bipolar type -CBT -Psychoeducation -Supportive therapy, group therapy, individual therapy -Buspar 10 mg PO TID -Discontinue Depakote 500 mg by mouth daily -Seroquel 200 mg PO QHS -Start Risperdal 2 mg by mouth twice a day Opioid use disorder severe -CBT -Psychoeducation -Supportive therapy, individual therapy -Use [place] for abstinence Opioid withdrawal -CBT -Psychoeducation -Supportive therapy, individual therapy -Clonidine when necessary -Methadone taper Cannabis use disorder Severe -Monitor signs and symptoms -Use [place] for abstinence Cocaine use disorder Severe -Monitor signs and symptoms -Use [place] for abstinence
[2018-02-14 06:48] VITALS: RESP 18
[2018-02-14 09:13] VITALS: BP 111/77; PULSE 92
--- NOTE | 2018-02-14 10:42 | PCM.PYCHDC ---
Mental Status Examination - Mental Status Examination Orientation: Person, Place, Situation, Time Memory: Intact Mood: Neutral Affect: Constricted Speech: Soft Attention: WNL Concentration: WNL Association: WNL Fund of Knowledge: WNL Formal Thought Process: No Impairment Description of patient's judgement and insight: good, fair Psychotic Thoughts and Behaviors: denies any AVH Suicidal Ideation: No Current Homicidal Ideation?: No Discharge Summary - Discharge Note Reason for Hospitalization: Patient is a 32 year old single male, who is currently unemployed, came to the hospital with suicidal ideations with a plan to cut himself. speech writer is familiar with this patient. He has history of multiple psychiatric hospitalizations. He was just discharged from [facility] 5 E few months ago. As per the patient soon after discharge, he stopped taking his medications and relapsed on heroin cocaine and marijuana. Patient reports of abusing 5-10 bags of heroin along with 10-50 or cocaine daily. Patient said he's been feeling bad for 2 days and waited to come because he "was holding it on". Patient reports withdrawal symptoms from heroine including nausea, vomiting, diarrhea, sweating, and joint pains. He reports depressed mood, irritability, agitation poor sleep and suicidal ideations with a plan to cut himself. He also reports auditory hallucinations, a voice telling him to "hurt himself" and visual hallucinations, shadows. He also reports paranoia that he feels like people are looking at him and following him. Consultations:: List each consultation separately and include: 1. Reason for request. 2. Findings. 3. Follow-up Summary of Hospital Course include:: 1. Description of specific treatment plan utilized for patients during their course of treatmen. 2. Summarize the time- course for resolution of acute symptoms and/or regressed behaviors. 3. Describe issues identified and worked on during hospitalization. 4. Describe medication utilized. 5. Describe medical problems identified and treated. 6. Reassessment of suicide risk Summary of Hospital Course: Patient is a 32 year old single male, who is currently unemployed, came to the hospital with suicidal ideations with a plan to cut himself. speech writer is familiar with this patient. He has history of multiple psychiatric hospitalizations. He was just discharged from [facility] 5 E few months ago. As per the patient soon after discharge, he stopped taking his medications and relapsed on heroin cocaine and marijuana. Patient reports of abusing 5-10 bags of heroin along with 10-50 or cocaine daily. Patient said he's been feeling bad for 2 days and waited to come because he "was holding it on". Patient reports withdrawal symptoms from heroine including nausea, vomiting, diarrhea, sweating, and joint pains. He reports depressed mood, irritability, agitation poor sleep and suicidal ideations with a plan to cut himself. He also reports auditory hallucinations, a voice telling him to "hurt himself" and visual hallucinations, shadows. He also reports paranoia that he feels like people are looking at him and following him. Past medical history none reported - Diagnosis (1) Schizoaffective disorder Current Visit: No Status: Acute (2) Heroin abuse Current Visit: Yes Status: Acute - Final Diagnosis (DSM 5) Condition upon Discharge: STABLE Disposition: HOME/ ROUTINE Follow-up Treatment Plan: Schizoaffective disorder bipolar type -CBT -Psychoeducation -Supportive therapy, group therapy, individual therapy -Buspar 10 mg PO TID -Discontinue Depakote 500 mg by mouth daily -Seroquel 200 mg PO QHS -Start Risperdal 2 mg by mouth twice a day Opioid use disorder severe -CBT -Psychoeducation -Supportive therapy, individual therapy -Use [place] for abstinence Opioid withdrawal -CBT -Psychoeducation -Supportive therapy, individual therapy -Clonidine when necessary -Methadone taper Cannabis use disorder Severe -Monitor signs and symptoms -Use [place] for abstinence Cocaine use disorder Severe -Monitor signs and symptoms -Use [place] for abstinence Prescriptions/Medication Reconciliation: Benztropine [Cogentin] 1 mg PO BID #60 tab busPIRone [Buspar] 10 mg PO BID #60 tab QUEtiapine [SEROquel] 200 mg PO HS #30 tab risperiDONE [RisperDAL Tab] 2 mg PO BID #60 tab
== END 2018-02-14 11:15 | disposition home or self-care (01) | DRG 885 ==
LOC: C.ER 09:23 → C.9E 12:52 → C.5E 13:30
PROVIDERS: ADMIT Psychiatry & Neurology Psychiatry; ATTEND Psychiatry & Neurology Psychiatry
DX: F25.0 Schizoaffective disorder, bipolar type (principal); F31.4 Bipolar disorder, current episode depressed, severe, without psychotic features; R45.851 Suicidal ideations; F11.23 Opioid dependence with withdrawal; F14.20 Cocaine dependence, uncomplicated; F12.20 Cannabis dependence, uncomplicated; Z79.899 Other long term (current) drug therapy; Z87.891 Personal history of nicotine dependence; Z91.5 Personal history of self-harm

== ENCOUNTER 2018-03-13 17:03 | Emergency (ER) | payer MEDICARE, MEDICAID ==
[2018-03-13 17:04] VITALS: BMI 28.8
[2018-03-13 17:15] VITALS: O2SAT 96
--- NOTE | 2018-03-13 18:36 | C.PDOC ---
History Of Present Illness 32 year old male, whose PMHx includes schizophrenia and substance abuse, is brought to the ED by ambulance for evaluation of public intoxication and bizarre behavior. Patient was seen at [facility] ED on 02/20 for same complaints. He denies suicidal/homicidal ideation at this time. Time Seen by Provider: 03/13/18 17:25 Chief Complaint (Nursing): Substance Abuse History Per: Patient, EMS History/Exam Limitations: no limitations Onset/Duration Of Symptoms: Hrs Current Symptoms Are (Timing): Still Present Suicide/Self Injury Attempted (Context): None Modifying Factor(s): Alcohol Associated Symptoms: denies: Suicidal Thoughts, Suicidal Plan Involuntary Hold By: None Recent travel outside of the [place]: No Additional History Per: Patient, EMS Past Medical History Reviewed: Historical Data, Nursing Documentation, Vital Signs Vital Signs: Last Vital Signs Temp 98.8 F 03/13/18 18:37 Pulse 85 03/13/18 18:37 Resp 18 03/13/18 18:37 BP 135/76 03/13/18 18:37 Pulse Ox 96 03/13/18 23:07 - Medical History PMH: Anxiety, Depression, Pancreatitis, Schizophrenia (paranoid) Denies: Alzheimer's Disease, Asthma, Atrial Fibrillation, Bronchitis, Cardia Arrhythmia, CHF, COPD, Dementia, Diabetes, Emphysema, Hepatitis, HIV, HTN, Hypercholesterolemia, Hyperthyroidism, Hypothyroidism, Kidney Stones, Migraine, Mitral Valve Prolapse, Multiple Sclerosis, Parkinson's Disease, Peripheral Edema , Pneumonia, Pulmonary Embolism, Chronic Kidney Disease, Seizures, Sexually Transmitted Disease, Sleep Apnea, TIA Surgical History: No Surg Hx Denies: Pacemaker - [facility] Procedures DETOXIFICATION SERVICES FOR SUBSTANCE ABUSE TREATMENT (09/05/17) GROUP STEAM HAMMER OPERATOR FOR SUBSTANCE ABUSE TREATMENT, PSYCHOEDUCATION (06/04/17) GROUP PSYCHOTHERAPY (06/04/17) INDIV PSYCHOTHERAPY FOR SUBSTANCE ABUSE TREATMENT, SUPPORT (06/04/17) INDIV PSYCHOTHERAPY FOR SUBSTANCE ABUSE, COGNITIV BEHAVIORAL (01/01/17) INDIV PSYCHOTHERAPY FOR SUBSTANCE ABUSE, PSYCHOEDUCATION (12/11/16) INDIVIDUAL PSYCHOTHERAPY, COGNITIVE-BEHAVIORAL (01/01/17) INDIVIDUAL PSYCHOTHERAPY, SUPPORTIVE (06/04/17) MEDICATION MANAGEMENT (06/04/17) Family History: States: Unknown Family Hx - Social History Hx Tobacco Use: Yes Hx Alcohol Use: No Hx Substance Use: Yes - Immunization History Hx Tetanus Toxoid Vaccination: No Hx Influenza Vaccination: Yes Hx Pneumococcal Vaccination: No Review Of Systems Psych: Positive for: Other (alcohol intoxication, bizarre behavior ). Negative for: Suicidal ideation Physical Exam - Physical Exam Appears: Non-toxic, No Acute Distress, Other (bizarre, loud male. patient is singing in the ED) Skin: Normal Color, Warm, Dry, No Other (acute injuries ) Head: Atraumatic, Normacephalic Eye(s): bilateral: Normal Inspection Oral Mucosa: Moist, Other (alcohol on breath ) Neck: Supple Chest: Symmetrical, No Deformity, No Tenderness Cardiovascular: Rhythm Regular, No Murmur Respiratory: Normal Breath Sounds, No Rales, No Rhonchi, No Wheezing Extremity: Normal ROM, Capillary Refill (less than 2 seconds ) Neurological/Psych: Other (arousable to touch and verbal stimuli ) ED Course And Treatment O2 Sat by Pulse Oximetry: 96 (on RA) Pulse Ox Interpretation: Normal Medical Decision Making Medical Decision Making: substance abuse and szhizophrenia 1830: calm, cooperative, denies SI/HI appropriate for safe d/c. Disposition Doctor Will See Patient In The: Office Counseled Patient/Family Regarding: Studies Performed, Diagnosis - Disposition Referrals: Alcoholics Anonymous [Outside] [facility] [Outside] [facility] [Outside] [facility] [Outside] Disposition: HOME/ ROUTINE Disposition Time: 18:36 Condition: GOOD Instructions: Schizophrenia, Drug Abuse and Drug Addiction (DC) Forms: [employer] [facility] (Hungarian) Print Language: MALTESE - Clinical Impression Clinical Impression: Schizophrenia, Substance abuse - Scribe Statement The provider has reviewed the documentation as recorded by the Scribe (Jihan Perez) Provider Attestation: All medical record entries made by the Scribe were at my direction and personally dictated by me. I have reviewed the chart and agree that the record accurately reflects my personal performance of the history, physical exam, medical decision making, and the department course for this patient. I have also personally directed, reviewed, and agree with the discharge instructions and disposition.
[2018-03-13 18:39] VITALS: BP 135/76; PULSE 85; RESP 18; TEMP 98.8
== END 2018-03-13 18:43 | disposition home or self-care (01) ==
LOC: C.ER 17:03
DX: F20.9 Schizophrenia, unspecified (principal); F19.10 Other psychoactive substance abuse, uncomplicated

== ENCOUNTER 2018-03-31 22:49 | Emergency (ER) | payer MEDICARE, MEDICAID ==
[2018-03-31 22:50] VITALS: BMI 28.8
== END 2018-03-31 23:03 | disposition left against medical advice (07) ==
LOC: C.ER 22:49
DX: Z02.89 Encounter for other administrative examinations (principal); R10.9 Unspecified abdominal pain

== ENCOUNTER 2018-04-01 21:06 | Emergency (ER) | payer MEDICARE, MEDICAID ==
[2018-04-01 21:07] VITALS: BMI 28.8
[2018-04-01 21:28] VITALS: BP 137/82; PULSE 92; RESP 20; TEMP 98.5; O2SAT 98
--- NOTE | 2018-04-01 22:32 | C.PDOC ---
History Of Present Illness 32 year old male presents to the ER for heroin intoxication. Patient was deferred from assisted for being intoxicated. Patient has multiple presentations for heroin abuse. Denies physical complaints at this time. Time Seen by Provider: 04/01/18 22:28 Chief Complaint (Nursing): Substance Abuse History Per: Patient History/Exam Limitations: no limitations Onset/Duration Of Symptoms: Hrs Current Symptoms Are (Timing): Still Present Suicide/Self Injury Attempted (Context): None Modifying Factor(s): Other (Heroin) Associated Symptoms: denies: Depression, Suicidal Thoughts Involuntary Hold By: None Recent travel outside of the [place]: No Past Medical History Reviewed: Historical Data, Nursing Documentation, Vital Signs Vital Signs: Last Vital Signs Temp 98.5 F 04/01/18 21:25 Pulse 92 H 04/01/18 21:25 Resp 20 04/01/18 21:25 BP 137/82 04/01/18 21:25 Pulse Ox 98 04/01/18 22:32 - Medical History PMH: Anxiety, Depression, Pancreatitis, Schizophrenia (paranoid) - [facility] Procedures DETOXIFICATION SERVICES FOR SUBSTANCE ABUSE TREATMENT (09/05/17) GROUP DERMATOLOGY TECHNICIAN FOR SUBSTANCE ABUSE TREATMENT, PSYCHOEDUCATION (06/04/17) GROUP PSYCHOTHERAPY (06/04/17) INDIV PSYCHOTHERAPY FOR SUBSTANCE ABUSE TREATMENT, SUPPORT (06/04/17) INDIV PSYCHOTHERAPY FOR SUBSTANCE ABUSE, COGNITIV BEHAVIORAL (01/01/17) INDIV PSYCHOTHERAPY FOR SUBSTANCE ABUSE, PSYCHOEDUCATION (12/11/16) INDIVIDUAL PSYCHOTHERAPY, COGNITIVE-BEHAVIORAL (01/01/17) INDIVIDUAL PSYCHOTHERAPY, SUPPORTIVE (06/04/17) MEDICATION MANAGEMENT (06/04/17) Family History: States: Unknown Family Hx - Social History Hx Tobacco Use: Yes Hx Alcohol Use: No Hx Substance Use: Yes - Immunization History Hx Tetanus Toxoid Vaccination: No Hx Influenza Vaccination: Yes Hx Pneumococcal Vaccination: No Review Of Systems Constitutional: Negative for: Fever, Chills Cardiovascular: Negative for: Chest Pain, Palpitations Respiratory: Negative for: Cough, Shortness of Breath Gastrointestinal: Negative for: Nausea, Vomiting Neurological: Negative for: Weakness, Numbness Psych: Negative for: Depression, Suicidal ideation Physical Exam - Physical Exam Appears: Non-toxic, Other (Conversational, vertical) Skin: Normal Color, Warm, Dry Head: Atraumatic, Normacephalic Eye(s): bilateral: PERRL, EOMI, Other (Pin point pupils) Oral Mucosa: Moist Neck: Normal, Supple Chest: Symmetrical, No Tenderness Cardiovascular: Rhythm Regular Respiratory: Normal Breath Sounds, No Rales, No Rhonchi, No Wheezing Gastrointestinal/Abdominal: Soft, No Tenderness Back: No CVA Tenderness Extremity: Normal ROM (x4) Neurological/Psych: Oriented x3, Normal Speech Gait: Steady ED Course And Treatment O2 Sat by Pulse Oximetry: 98 Medical Decision Making Medical Decision Making: referred from [facility] for heroine abuse no male detox available tonight referred to opt program many prior evals for same. Disposition Doctor Will See Patient In The: Office Counseled Patient/Family Regarding: Studies Performed, Diagnosis - Disposition Referrals: Alcoholics Anonymous [Outside] [facility] [Outside] [facility] [Outside] [facility] [Outside] Non [facility] Provider, [Primary Care Provider] - Disposition: HOME/ ROUTINE Disposition Time: 22:31 Condition: GOOD Additional Instructions: sigue en la [facility] No hay desponible Detox de heroina hoy- llama para availabilidad. Instructions: Drug Abuse and Drug Addiction (DC), Opioid Use Disorder Forms: [employer] (Irish) Print Language: SOUTH SUDANESE - Clinical Impression Clinical Impression: Heroin abuse - Scribe Statement The provider has reviewed the documentation as recorded by the Scribjared Rodriguez All medical record entries made by the Scribe were at my direction and personally dictated by me. I have reviewed the chart and agree that the record accurately reflects my personal performance of the history, physical exam, medical decision making, and the department course for this patient. I have also personally directed, reviewed, and agree with the discharge instructions and disposition.
== END 2018-04-01 22:46 | disposition home or self-care (01) ==
LOC: C.ER 21:06 → SUPCPDRO 21:06 → C.ER 22:46
DX: F11.10 Opioid abuse, uncomplicated (principal)

== ENCOUNTER 2018-04-08 08:28 | Inpatient (IN) | payer MEDICARE, MEDICAID ==
[2018-04-08 08:29] VITALS: BMI 28.8
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
[2018-04-08 09:17] LABS: BASO % 0.4 % (0.0-2.0); EOS # 0.3 K/uL (0.0-0.7); HEMOGLOBIN 12.8 g/dL (12.0-18.0); LYMPH # 1.3 K/uL (1.0-4.3); LYMPH % 26.7 % (20.0-40.0); MEAN CELL VOLUME 88.5 fL (80.0-94.0); MEAN CORPUSCULAR HEMOGLOBIN 30.2 pg (27.0-31.0); MEAN CORPUSCULAR HGB CONC 34.1 g/dL (33.0-37.0); MEAN PLATELET VOLUME 8.4 fL (7.2-11.7); MONO # 0.3 K/uL (0.0-0.8); MONO % 6.9 % (0.0-10.0); RBC 4.23 Mil/uL (4.40-5.90); RED CELL DISTRIBUTION WIDTH 13.3 % (11.5-14.5)
[2018-04-08 09:25] LABS: SQUAMOUS EPITHIAL < 1 /hpf (0-5); URINE BILIRUBIN NEGATIVE (NEGATIVE); URINE BLOOD NEGATIVE (NEGATIVE); URINE CLARITY Clear (Clear); URINE COLOR Yellow (YELLOW); URINE GLUCOSE (UA) NORMAL (Normal); URINE LEUKOCYTE ESTERASE NEG Leu/uL (Negative); URINE PROTEIN NEGATIVE (NEGATIVE); URINE UROBILINOGEN NORMAL mg/dL (0.2-1.0)
[2018-04-08 09:54] LABS: ALB/GLOB RATIO 1.5 (1.0-2.1); ALBUMIN 3.8 g/dL (3.5-5.0); ALT/SGPT 76 U/L (21-72); AST/SGOT 52 U/L (17-59); BLOOD UREA NITROGEN 16 mg/dL (9-20); CALCIUM 9.2 mg/dl (8.6-10.4); GFR AFRICAN-AMERICAN > 60; GFR NON-AFRICAN AMERICAN > 60
[2018-04-08 10:08] LABS: BARBITURATES, UR NEGATIVE (NEGATIVE); PHENCYCLIDINE, UR NEGATIVE (NEGATIVE)
[2018-04-08 10:32] LABS: BENZODIAZEPINES, UR POSITIVE (NEGATIVE); OPIATES, UR POSITIVE (NEGATIVE)
--- NOTE | 2018-04-08 12:19 | PCM.BM ---
<Bruna Rochan - Last Filed: 04/08/18 12:17> Treatment Plan Problems - Problems identified on initial assessmt Substance Abuse Date Initiated: 04/08/18 Time Initiated: 12:17 Assessment reference: NA Status: Active Treatment assets and liabiliti Patient Assests: adapts well, cooperative, ADL independent, physically healthy, negotiates basic needs, financial stabiity, cognitively intact Patient Liabilities: substance abuse - Milieu Protocol Maintain good personal hygiene: daily Encourage regular showers, daily Remind patient to perform daily oral care, daily Assist patient to perform ADL's Maintain personal safety: every shift Educate patient to report safety concerns to staff, every shift Monitor environment for contraband/sharps Medication safety: Monitor for expected outcome, potential side effects: every shift, Assess barriers to learning: every shift, Assess readiness for medication education: every shift <Kristie León - Last Filed: 04/09/18 13:12> Family Contact Family involvement: Famliy/SO not involved - Goals for Treatment Patient goals for treatment: "I don't know." Discharge/Continuing Care - Education Needs Education Needs: Patient Medication, Patient Coping Skills - Discharge Discharge Criteria: Tolerates medication w/o severe side effects, Free of Suicidal thoughts, No longer exhibiting s/s of withdrawal, Reduction of target symptoms Discharge to:: Substance Abuse Rehab - Treatment Team Participation Discussed with Family/SO: No Was Patient/Family/SO present at Treatment Team Meeting: Yes <Johnathan Paulino - Last Filed: 04/11/18 17:44> - Diagnosis (1) Schizoaffective disorder, depressive type Status: Acute Interventions: 04/11/18 17:43 * Assess/adjust medications daily and /or as needed * See patient on an individual basis 7x/week to assess symptoms of depression * Monitor for side effects & effectiveness of medications (2) Opioid use disorder, severe, dependence Status: Acute Interventions: 04/11/18 17:44 * Assess 7x/week regarding severity of withdrawal * Educate regarding risks, benefits, side effects and alternatives of medications * Use Motivational Interviewing for abstinence * Use CBT for relapse prevention * Medication management for withdrawal symptoms * Encourage medication assisted treatment (3) Cannabis use disorder, severe, dependence Status: Acute Interventions: 04/11/18 17:44 * Assess 7x/week regarding severity of withdrawal * Educate regarding risks, benefits, side effects and alternatives of medications * Use Motivational Interviewing for abstinence * Use CBT for relapse prevention * Medication management for withdrawal symptoms * Encourage medication assisted treatment
--- NOTE | 2018-04-08 14:29 | PCM.PSYCH ---
Initial Psychiatric Evaluation - Initial Psychiatric Evaluation Type of Admission: Voluntary Legal Status: Capacity History of Present Illness and Precipitating Events: Patient is a 32 year old single male, unemployed, was admitted due to command type auditory hallucinations and withdrawing from his substance use. Patient with history of schizoaffective disorder reported noncompliant for last few days, started hearing voices telling him to cut on his wrist to . Patient was discharged from psychiatric unit [facility] on 02/17/2018. Patient didn't have any follow-up after discharge from the hospital. Reported started feeling depressed, suicidal ideations. Also that he relapsed on heroin. Started using cannabis. Became more depressed with decreased sleep and appetite. 4 feeling hopeless helpless and guilty. Reported no previous suicidal attempts but history of suicidal ideations with plan to cut on his wrist in the past. Also hearing voices telling him to cut on his wrists to . Denied any homicidal ideations denied any manic or anxiety symptoms. Heroin: He started using heroin at 18 years of age, increased gradually. Currently he was using 10 bags of heroin daily, IV, sniffing. Last used yesterday. History of 2 previous detox but no rehabs. Cannabis: Was using one pack of cannabis daily. Last used yesterday. Cigarettes: He smokes 10 cigarettes daily and is requesting for nicotine patch. He has history of multiple psychiatric hospitalizations. few months ago. As per the patient soon after discharge, he stopped taking his medications and relapsed on heroin cocaine and marijuana. Patient reports of abusing 5-10 bags of heroin along with 10-50 or cocaine daily. Patient said he's been feeling bad for 2 days and waited to come because he "was holding it on". Patient reports withdrawal symptoms from heroine including nausea, vomiting, diarrhea, sweating , and joint pains. He reports depressed mood, irritability, agitation poor sleep and suicidal ideations with a plan to cut himself. He also reports auditory hallucinations, a voice telling him to "hurt himself" and visual hallucinations, shadows. He also reports paranoia that he feels like people are looking at him and following him. Past medical history Past Psychiatric History - Past Psychiatric History Previous Treatment History: Inpatient At [facility]: Multiple hospitals including, [facility] History of Abuse: None reported History of ETOH/Drug Use: See HPI History of Family Illness: None reported Pertinent Medical Hx (Current Medical&Sleep Prob, Allergies): Allergies Allergy/AdvReac Type Severity Reaction Status Date / Time No Known Allergies Allergy Verified 04/08/18 08:33 Divalproex [Depakote ER] 500 mg PO DAILY 02/10/18 Quetiapine Fumarate [Seroquel] 200 mg PO HS 02/10/18 QUEtiapine [SEROquel] 200 mg PO HS #30 tab 02/14/18 busPIRone [Buspar] 10 mg PO BID #60 tab 02/14/18 risperiDONE [RisperDAL Tab] 2 mg PO BID #60 tab 02/14/18 Review of Systems - Psychiatric Psychiatric: As Per HPI, Depression, Hallucinations, Hopelessness Mental Status Examination - Personal Presentation Personal Presentation: Looks stated age - Affect Affect: Flat, Depressed - Motor Activity Motor Activity: Calm - Reliability in Providing Information Reliability in Providing Information: Fair - Speech Speech: Relevant - Mood Mood: Depressed - Formal Thought Process Formal Thought Process: Hallucinations, Paranoia - Hallucinations/Delusions Hallucinations: Auditory (Voices telling him to cut on his wrist, feels safe in the hospital.) - Obsessions/Compulsions Obsessions: None Compulsions: None - Cognitive Functions Orientation: Person, Place, Situation, Time Sensorium: Alert Attention/Concentration: Attentive Abstract Thinking: Belden Estimate of Intelligence: Average Judgement: Intact, as evidence by: Insight regarding need for hospitalization Memory: Recent intact, as evidence by: Ability to recall events of the day, Remote intact, as evidenced by: Ability to recall historical events - Risk Risk: Withdrawal, Diminished functioning - Strength & Assets Inventory Strength & Assets Inventory: Cooperative - Limitations Limitations: Living alone DSM 5 DX - DSM 5 DSM 5 Diagnosis: Schizoaffective disorder depressive type. Opiate use disorder severe Opiate withdrawal Cannabis use disorder severe - Recommended/Plan of Treatment Treatment Recommendations and Plan of Treatment: Patient education. Supportive therapy. CBT for relapse prevention. [place] for abstinence. We will start methadone taper for opiate withdrawal symptoms Other when necessary medication. Will continue Seroquel 200 mg at bedtime for psychosis. Other when necessary medications. Projected ELOS: 8-10 days - Smoking Cessation Smoking Cessation Initiated: Yes
[2018-04-08] MEDS ORDERED: Aluminum Hydroxide/Magnesium Hydroxide Susp (30 mL) PO PRN (14:33)
[2018-04-08] MEDS ORDERED: Pneumococcal 23-Valent Vaccine IM ONE (14:39)
--- NOTE | 2018-04-09 23:26 | PCM.PYCHPN ---
Psychiatric Progress Note - Psychiatric Progress Note Patient seen today, length of contact: 15 Minutes Patient Chief Complaint: Feeling little better. Problems Identified/Issues Discussed: Patient seen, chart reviewed, case discussed with the staff. Issues related to illness and treatment were discussed with the patient and staff. Reported compliant with treatment with no adverse affects. Tolerating treatment very well. Patient reported feeling better. Calm and cooperative with good eye contact. Staff reported isolative. Issues discussed with the patient. Aftercare discussed with the patient. Awake alert oriented 3, no delusions, no auditory or visual hallucination, nose suicidal ideation or homicidal ideation at time of evaluation. Medical Problems: None reported Diagnostic Results: Reviewed DSM 5 Symptoms Update: Some improvement with treatment Medication Change: No Medical Record Reviewed: Yes Mental Status Examination - Cognitive Function Orientation: Person, Place, Situation, Time Memory: Intact Attention: WNL Concentration: WNL Association: WNL Fund of Knowledge: [facility] Decription of patient's judgement and insights: Fair - Mood Mood: Depressed - Affect Affect: Depressed - Speech Speech: Appropriate - Formal Thought Process Formal Thought Process: Paranoia - Suicidal Ideation Suicidal Ideation: No - Homicidal Ideation Homicidal Ideation: No Goal/Treatment Plan - Goal/Treatment Plan Need for Continued Stay: Remain at risks for inpatient hospitalization, Discharge may exacerbated symptoms, Severe functional impairment Progress Toward Problem(s) and Goals/Treatment Plan: Patient education. Supportive therapy. CBT for relapse prevention. [place] for abstinence. Continue treatment as before. Estimated Date of D/C: 04/14/18 - Smoking Cessation Smoking Cessation Initiated: Yes
--- NOTE | 2018-04-11 17:50 | PCM.PYCHPN ---
Psychiatric Progress Note - Psychiatric Progress Note Patient seen today, length of contact: 15 Minutes Patient Chief Complaint: I'm feeling better. Problems Identified/Issues Discussed: Patient seen, chart reviewed, case discussed with the staff. Issues related to illness and treatment were discussed with the patient and staff. Reported compliant with treatment with no adverse affects. Tolerating treatment very well. Patient reported feeling better. Calm and cooperative with good eye contact. Staff reported still isolative. Issues discussed with the patient. Aftercare discussed with the patient. Awake alert oriented 3, no delusions, no auditory or visual hallucination, nose suicidal ideation or homicidal ideation at time of evaluation. Medical Problems: None reported Diagnostic Results: Reviewed DSM 5 Symptoms Update: Some improvement with treatment Medication Change: No Medical Record Reviewed: Yes Mental Status Examination - Cognitive Function Orientation: Person, Place, Situation, Time Memory: Intact Attention: WNL Concentration: WNL Association: WNL Fund of Knowledge: [facility] Decription of patient's judgement and insights: Fair - Mood Mood: Depressed (Less than before) - Affect Affect: Other (Appropriate) - Speech Speech: Appropriate - Formal Thought Process Formal Thought Process: Paranoia (Much less than before) - Suicidal Ideation Suicidal Ideation: No - Homicidal Ideation Homicidal Ideation: No Goal/Treatment Plan - Goal/Treatment Plan Need for Continued Stay: Remain at risks for inpatient hospitalization, Discharge may exacerbated symptoms, Severe functional impairment Progress Toward Problem(s) and Goals/Treatment Plan: Patient education. Supportive therapy. CBT for relapse prevention. [place] for abstinence. Continue treatment as before. Estimated Date of D/C: 04/14/18 - Smoking Cessation Smoking Cessation Initiated: Yes
--- NOTE | 2018-04-11 17:52 | PCM.PYCHPN ---
Psychiatric Progress Note - Psychiatric Progress Note Patient seen today, length of contact: 15 Minutes Patient Chief Complaint: I'm feeling much better. Problems Identified/Issues Discussed: Patient seen, chart reviewed, case discussed with the staff. Issues related to illness and treatment were discussed with the patient and staff. Reported compliant with treatment with no adverse affects. Tolerating treatment very well. Patient reported feeling better. Calm and cooperative with good eye contact. Staff reported still isolative. Issues discussed with the patient. Aftercare discussed with the patient. Awake alert oriented 3, no delusions, no auditory or visual hallucination, nose suicidal ideation or homicidal ideation at time of evaluation. Medical Problems: None reported Diagnostic Results: Reviewed DSM 5 Symptoms Update: Some improvement with treatment. Medication Change: No Medical Record Reviewed: Yes Mental Status Examination - Cognitive Function Orientation: Person, Place, Situation, Time Memory: Intact Attention: WNL Concentration: WNL Association: WNL Fund of Knowledge: [facility] Decription of patient's judgement and insights: Fair - Mood Mood: Depressed (Much less than before) - Affect Affect: Other (Appropriate) - Speech Speech: Appropriate - Formal Thought Process Formal Thought Process: No Impairment Psychotic Thoughts and Behaviors: None - Suicidal Ideation Suicidal Ideation: No - Homicidal Ideation Homicidal Ideation: No Goal/Treatment Plan - Goal/Treatment Plan Need for Continued Stay: Remain at risks for inpatient hospitalization, Discharge may exacerbated symptoms, Severe functional impairment Progress Toward Problem(s) and Goals/Treatment Plan: Patient education. Supportive therapy. CBT for relapse prevention. [place] for abstinence. Continue treatment as before. Estimated Date of D/C: 04/14/18 - Smoking Cessation Smoking Cessation Initiated: Yes
[2018-04-12 06:29] VITALS: BP 112/69; PULSE 59; RESP 20; TEMP 98; O2SAT 100
--- NOTE | 2018-04-12 09:35 | PCM.PYCHDC ---
Mental Status Examination - Mental Status Examination Orientation: Person Discharge Summary - Discharge Note Consultations:: List each consultation separately and include: 1. Reason for request. 2. Findings. 3. Follow-up Summary of Hospital Course include:: 1. Description of specific treatment plan utilized for patients during their course of treatmen. 2. Summarize the time- course for resolution of acute symptoms and/or regressed behaviors. 3. Describe issues identified and worked on during hospitalization. 4. Describe medication utilized. 5. Describe medical problems identified and treated. 6. Reassessment of suicide risk Summary of Hospital Course: He left on Saturday instead of Saturday and claims he will go to [place] with his GF who lives there. He say she will find a place there for tx. Risks discussed. - Final Diagnosis (DSM 5) Condition upon Discharge: GUARDED Disposition: HOME/ ROUTINE Prescriptions/Medication Reconciliation: Gabapentin [Neurontin] 400 mg PO TID #90 cap QUEtiapine [SEROquel] 200 mg PO HS #30 tab
== END 2018-04-12 10:19 | disposition home or self-care (01) | DRG 885 ==
LOC: C.ER 08:28 → C.5E 10:43
PROC: GZ3ZZZZ Medication Management (ICD-10-PCS; principal; 2018-04-08)
PROC: HZ2ZZZZ Detoxification Services for Substance Abuse Treatment (ICD-10-PCS; 2018-04-08)
PROC: HZ90ZZZ Pharmacotherapy for Substance Abuse Treatment, Nicotine Replacement (ICD-10-PCS; 2018-04-08)
PROC: GZHZZZZ Group Psychotherapy (ICD-10-PCS; 2018-04-08)
PROC: GZ56ZZZ Individual Psychotherapy, Supportive (ICD-10-PCS; 2018-04-08)
PROC: HZ59ZZZ Individual Psychotherapy for Substance Abuse Treatment, Supportive (ICD-10-PCS; 2018-04-08)
PROC: HZ46ZZZ Group Counseling for Substance Abuse Treatment, Psychoeducation (ICD-10-PCS; 2018-04-08)
DX: F25.1 Schizoaffective disorder, depressive type (principal); F11.23 Opioid dependence with withdrawal; R45.851 Suicidal ideations; F12.20 Cannabis dependence, uncomplicated; F17.210 Nicotine dependence, cigarettes, uncomplicated; Z91.19 Patient's noncompliance with other medical treatment and regimen

== ENCOUNTER 2018-06-05 17:02 | Inpatient (IN) | payer MEDICARE, MEDICAID ==
[2018-06-05 17:02] VITALS: BMI 28.8
[2018-06-05 17:38] LABS: BASO % 0.3 % (0.0-2.0); EOS # 0.1 K/uL (0.0-0.7); HEMOGLOBIN 13.3 g/dL (12.0-18.0); LYMPH # 1.8 K/uL (1.0-4.3); LYMPH % 29.5 % (20.0-40.0); MEAN CELL VOLUME 86.8 fL (80.0-94.0); MEAN CORPUSCULAR HEMOGLOBIN 29.6 pg (27.0-31.0); MEAN CORPUSCULAR HGB CONC 34.1 g/dL (33.0-37.0); MEAN PLATELET VOLUME 8.5 fL (7.2-11.7); MONO # 0.4 K/uL (0.0-0.8); MONO % 5.8 % (0.0-10.0); NEUT # 3.9 K/uL (1.8-7.0); NEUT % 63.4 % (50.0-75.0); NRBC % 0.2 % (0.0-2.0); RBC 4.49 Mil/uL (4.40-5.90); RED CELL DISTRIBUTION WIDTH 13.2 % (11.5-14.5); WHITE BLOOD COUNT 6.1 K/uL (4.8-10.8)
[2018-06-05 17:46] LABS: SQUAMOUS EPITHIAL < 1 /hpf (0-5); URINE BACTERIA RARE (<OCC); URINE BILIRUBIN NEGATIVE (NEGATIVE); URINE BLOOD NEGATIVE (NEGATIVE); URINE CLARITY Clear (Clear); URINE COLOR Yellow (YELLOW); URINE GLUCOSE (UA) NORMAL (Normal); URINE LEUKOCYTE ESTERASE NEG Leu/uL (Negative); URINE PROTEIN NEGATIVE (NEGATIVE)
--- NOTE | 2018-06-05 17:48 | C.PDOC ---
History Of Present Illness 32-year-old male, whose past medical history of schizophrenia, depression, and multiple hospital admissions, presents to the ED for psychiatric evaluation of suicidal ideation and depression. Patient states he does not feel well. He admits that he wants to hurt himself and states there are voices in his head that are telling him to hurt himself. Patient admits to smoking marijuana today. He states he smokes cigarettes and denies alcohol use. Patient's family history is unknown. Time Seen by Provider: 06/05/18 17:37 Chief Complaint (Nursing): Psychiatric Evaluation History Per: Patient History/Exam Limitations: no limitations Onset/Duration Of Symptoms: Hrs Current Symptoms Are (Timing): Still Present Suicide/Self Injury Attempted (Context): None Modifying Factor(s): Marijuana Associated Symptoms: Depression, Suicidal Thoughts. denies: Suicidal Plan Additional History Per: Patient Past Medical History Reviewed: Historical Data, Nursing Documentation, Vital Signs Vital Signs: Last Vital Signs Temp 97.3 F L 06/09/18 06:00 Pulse 62 06/09/18 06:00 Resp 20 06/09/18 06:00 BP 100/57 L 06/09/18 06:00 Pulse Ox 98 06/09/18 06:00 - Medical History PMH: Anxiety, Depression, Hepatitis (C), Pancreatitis, Schizophrenia (paranoid) Denies: Alzheimer's Disease, Asthma, Atrial Fibrillation, Bronchitis, Cardia Arrhythmia, CHF, COPD, Dementia, Diabetes, Emphysema, HIV, HTN, Hypercholesterolemia, Hyperthyroidism, Hypothyroidism, Kidney Stones, Migraine, Mitral Valve Prolapse, Multiple Sclerosis, Parkinson's Disease, Peripheral Edema , Pneumonia, Pulmonary Embolism, Chronic Kidney Disease, Seizures, Sexually Transmitted Disease, Sleep Apnea, TIA Surgical History: No Surg Hx Denies: Pacemaker - [facility] Procedures DETOXIFICATION SERVICES FOR SUBSTANCE ABUSE TREATMENT (04/08/18) GROUP CARTON MAKING MACHINE OPERATOR FOR SUBSTANCE ABUSE TREATMENT, PSYCHOEDUCATION (04/08/18) GROUP PSYCHOTHERAPY (04/08/18) INDIV PSYCHOTHERAPY FOR SUBSTANCE ABUSE TREATMENT, SUPPORT (04/08/18) INDIV PSYCHOTHERAPY FOR SUBSTANCE ABUSE, COGNITIV BEHAVIORAL (01/01/17) INDIV PSYCHOTHERAPY FOR SUBSTANCE ABUSE, PSYCHOEDUCATION (12/11/16) INDIVIDUAL PSYCHOTHERAPY, COGNITIVE-BEHAVIORAL (01/01/17) INDIVIDUAL PSYCHOTHERAPY, SUPPORTIVE (04/08/18) MEDICATION MANAGEMENT (04/08/18) PHARMACOTHERAPY FOR SUBSTANCE ABUSE, NICOTINE REPLACE (04/08/18) Family History: States: Unknown Family Hx - Social History Hx Tobacco Use: Yes Hx Alcohol Use: No Hx Substance Use: Yes - Immunization History Hx Tetanus Toxoid Vaccination: No Hx Influenza Vaccination: Yes Hx Pneumococcal Vaccination: No Review Of Systems Psych: Positive for: Depression, Suicidal ideation Physical Exam - Physical Exam Appears: Other (in acute psych distress, anxious ) Skin: Other (multiple healed self-inflicted lacerations to left upper extremity , extending from wrist up to shoulder ) Head: Atraumatic, Tenderness Eye(s): bilateral: PERRL, EOMI, Other (conjunctival injection ) Oral Mucosa: Moist Lips: Normal Appearing Neck: Normal ROM, Trachea Midline Lymphatic: No Adenopathy Chest: Symmetrical, No Tenderness Cardiovascular: Rhythm Regular, No Murmur Respiratory: Normal Breath Sounds, No Wheezing Gastrointestinal/Abdominal: Soft, No Tenderness Back: Normal Inspection, No Decreased ROM Extremity: Normal ROM, No Deformity Neurological/Psych: Oriented x3, Normal Speech, Normal Cognition, Normal Motor, Normal Sensation Additional Physical Exam Comments: As of 1914: patient's left upper extremity has three superficial lacerations that are well-approximated with very slow ooze. Pressure dressing was applied. ED Course And Treatment - Laboratory Results Result Diagrams: 06/05/18 17:33 06/05/18 17:33 O2 Sat by Pulse Oximetry: 100 (on RA) Pulse Ox Interpretation: Normal Medical Decision Making Medical Decision Making: Impression: 32 year old male with depression and suicidal ideation Plan: * bloodwork * urinalysis * crisis evaluation * reassess and disposition Progress: bloodwork and urinalysis ordered and reviewed. Patient's labs are unremarkable, aside from being positive for cannabinoids in drug screen. Patient is medically stable for psychiatric evaluation. Will admit if necessary. 1899: Patient was evaluated by tar worker, Martine, and has been cleared for discharge. 1914: Upon being informed that he was going to be discharged, patient pulled out a razor from his pocket and subsequently began cutting his left upper extremity. Patient will be re-evaluated by tar worker. Disposition Counseled Patient/Family Regarding: Studies Performed, Diagnosis - Disposition Disposition: HOSPITALIZED Disposition Time: 21:00 Condition: STABLE - Clinical Impression Clinical Impression: Schizophrenia, Laceration of left upper arm - Scribe Statement The provider has reviewed the documentation as recorded by the Scribe (Jihan Perez) Provider Attestation: All medical record entries made by the Scribe were at my direction and personally dictated by me. I have reviewed the chart and agree that the record accurately reflects my personal performance of the history, physical exam, medical decision making, and the department course for this patient. I have also personally directed, reviewed, and agree with the discharge instructions and disposition.
[2018-06-05 17:51] LABS: BARBITURATES, UR NEGATIVE (NEGATIVE); BENZODIAZEPINES, UR NEGATIVE (NEGATIVE); PHENCYCLIDINE, UR NEGATIVE (NEGATIVE)
[2018-06-05 17:55] LABS: OPIATES, UR POSITIVE (NEGATIVE)
[2018-06-05 18:01] LABS: BLOOD UREA NITROGEN 14 mg/dL (9-20); CALCIUM 9.3 mg/dl (8.6-10.4); GFR NON-AFRICAN AMERICAN > 60
--- NOTE | 2018-06-05 22:16 | PCM.BM ---
<Judy Webber - Last Filed: 06/05/18 22:14> Treatment Plan Problems - Problems identified on initial assessmt depression Date Initiated: 06/05/18 Time Initiated: 22:15 Assessment reference: NA Status: Active substance abuse Date Initiated: 06/05/18 Time Initiated: 22:15 Assessment reference: NA Status: Active Treatment assets and liabiliti Patient Assests: cooperative, insightful, motivated, self-reliant, ADL independent, physically healthy, good support system, negotiates basic needs, financial stabiity, cognitively intact Patient Liabilities: substance abuse - Milieu Protocol Maintain good personal hygiene: daily Encourage regular showers, daily Remind patient to perform daily oral care, daily Assist patient to perform ADL's Conduct patient checks and document Observation sheet: Q15 minutes Maintain personal safety: every shift Educate patient to report safety concerns to staff, every shift Monitor environment for contraband/sharps Medication safety: Monitor for expected outcome, potential side effects: every shift, Assess barriers to learning: every shift, Assess readiness for medication education: every shift <Dominick Lara - Last Filed: 06/06/18 12:34> - Diagnosis (1) Bipolar disorder, curr episode mixed, severe, with psychotic features Status: Acute Interventions: 06/06/18 12:34 * Assess/adjust medications daily and /or as needed * See patient on an individual basis 7x/week to assess level of manic behaviors and stability * Discuss risks, benefits, side effects and alternatives of medications * (2) Opioid use disorder, severe, dependence Status: Acute Interventions: 06/06/18 12:35 * Assess 7x/week regarding severity of withdrawal * Educate regarding risks, benefits, side effects and alternatives of medications * Use Motivational Interviewing for abstinence * Use CBT for relapse prevention * Medication management for withdrawal symptoms * Encourage medication assisted treatment * <Kristie León - Last Filed: 06/06/18 13:22> Family Contact Family involvement: Famliy/SO not involved - Goals for Treatment Patient goals for treatment: "I need to go to rehab." Discharge/Continuing Care - Education Needs Education Needs: Patient Medication, Patient Coping Skills, Patient Placement options, Patient Community resources - Discharge Discharge Criteria: Tolerates medication w/o severe side effects, Free of Suicidal thoughts, No longer exhibiting s/s of withdrawal, Reduction of target symptoms Discharge to:: Substance Abuse Rehab - Treatment Team Participation Discussed with Family/SO: No Was Patient/Family/SO present at Treatment Team Meeting: Yes
--- NOTE | 2018-06-06 10:28 | PCM.PSYCH ---
Initial Psychiatric Evaluation - Initial Psychiatric Evaluation Type of Admission: Voluntary Legal Status: Capacity Chief Complaint (in patient's own words): "I'll hurt myself" History of Present Illness and Precipitating Events: Pt is 32 year old male who is single, has no children, and currently homeless and unemployed, presented to the ED with depressed mood and suicidal ideation. Care Mgr is familiar with this patient. Pt has history of multiple inpatient psychiatric hospitalizations, he was recently discharged from [facility] 2 months ago. He has been non compliant with the follow up appointments with Dr. Dennis and MALVIN. As per the patient, he stopped the medications soon after the discharge and relapsed on heroin and cocaine. He reports of abusing 5-10 bags of heroin. Yesterday he injected almost 5 bags, became increasingly depressed and suicidal and started hearing voices to kill himself, so he came to the hospital to get help. Patient reports of depressed mood, feelings of hopelessness and helplessness, poor sleep and poor appetite. Patient reports withdrawal symptoms including abdominal cramps, anxiety, headaches and sweating. He reports auditory hallucinations command type to kill himself and reports paranoid delusions that people are after him. He reports irritability and agitation. He appears paranoid and deluiosnal. Pt smokes cigarettes, cocaine 1-2 dime bags (intranasally), but denies any other drugs. Pt also drinks EtOH occasionally "2-3 shots of H[place]. Psych Hx: Pt reports prior attempts at suicide as well has homocidal ideations. Traumatic Hx: Pt denies Family Psych Hx: Pt denies Legal Hx: Pt has been arrested for domestic violence, assaults, and terroristic threats. PMH:None reported Current Medications: Active Medications Generic Name Dose Route Start Last Admin Trade Name Freq PRN Reason Stop Dose Admin Quetiapine Fumarate 100 mg 06/05/18 22:15 06/05/18 22:44 Seroquel PO 100 mg HS MAIRA Administration Trazodone HCl 50 mg 06/05/18 22:15 06/05/18 22:44 Desyrel PO 50 mg HS MAIRA Administration Past Psychiatric History - Past Psychiatric History Previous Treatment History: Inpatient Pertinent Medical Hx (Current Medical&Sleep Prob, Allergies): Allergies Allergy/AdvReac Type Severity Reaction Status Date / Time No Known Allergies Allergy Verified 09/13/18 17:13 Quetiapine Fumarate [Seroquel] 200 mg PO HS 02/10/18 busPIRone [Buspar] 10 mg PO TID 06/05/18 Review of Systems - Review of Systems All systems: reviewed and no additional remarkable complaints except - Psychiatric Psychiatric: As Per HPI, Abnormal Sleep Pattern, Auditory Hallucinations, Depression, Irritability, Paranoia, Suicidal Ideation. absent: Change in Appetite, Homicidal Ideation Mental Status Examination - Personal Presentation Personal Presentation: Looks stated age - Affect Affect: Constricted, Depressed - Motor Activity Motor Activity: Calm - Reliability in Providing Information Reliability in Providing Information: Poor, due to alteration in thoughts, Poor , due to altered mood - Speech Speech: Organized - Mood Mood: Depressed, Anxious - Formal Thought Process Formal Thought Process: Hallucinations, Delusions, Paranoia, Loosening of associations - Hallucinations/Delusions Hallucinations: Auditory Delusions: Persecution - Obsessions/Compulsions Obsessions: No Compulsions: No - Cognitive Functions Orientation: Person, Place, Situation, Time Sensorium: Alert Attention/Concentration: Attentive Abstract Thinking: [place] Estimate of Intelligence: Below average Judgement: Imparied, as evidence by: Poor judgement, Imparied, as evidence by: Lack of insight into illness - Risk Risk: Suicidal, Withdrawal, Diminished functioning - Limitations Limitations: Living alone DSM 5 DX - DSM 5 DSM 5 Diagnosis: Bipoar disorder mixed severe with psychotic features. R/O Schizoaffective disorder bipolar type Opioid use disorder Opioid withdrawal uncomplicated Cannabis use disorder severe Alcohol use disorder, severe - Recommended/Plan of Treatment Treatment Recommendations and Plan of Treatment: Bipoar disorder mixed severe with psychotic features. R/O Schizoaffective disorder bipolar type Opioid use disorder Opioid withdrawal uncomplicated Cannabis use disorder severe Alcohol use disorder, severe CBT Psychoeducation Supportive therapy, group therapy Oxcarbazepine 150 mg PO BID Seroquel 200 mg PO QHS Trazodone for insomnia Hydroxyzine for anxiety Methadone taper Clonidine prn As need medications All risks, benefits and alternatives of the meds discussed, and the pt agreed and understood. Attend groups and activities Individual therapy daily Psychoeducation and support daily Encourage compliance with meds and after care Refer to outpatient program Teach healthy lifestyle methods, i.e. diet, exercise, meditation Smoking cessation and patch if needed - Smoking Cessation Smoking Cessation Initiated: No
[2018-06-06] MEDS ORDERED: Aluminum Hydroxide/Magnesium Hydroxide Susp (30 mL) PO PRN (11:23)
--- NOTE | 2018-06-07 16:56 | PCM.PYCHPN ---
Psychiatric Progress Note - Psychiatric Progress Note Patient seen today, length of contact: 16 min Patient Chief Complaint: "I have to go to a rehab" Problems Identified/Issues Discussed: The pt is seen, chart reviewed, case discussed with staff. The pt is compliant with medications and reports no side-effects. Symptoms are improving but needs more time to stabilize. Pt attends groups and activities. Support given, psycho-education provided. After care discussed. He says he needs to go to rehab bc he relapsed a lot Medication Change: Yes Medical Record Reviewed: Yes Mental Status Examination - Cognitive Function Orientation: Person, Place, Situation, Time Memory: Impaired Attention: WNL Concentration: Poor Association: WNL Fund of Knowledge: WNL - Mood Mood: Depressed, Anxious - Affect Affect: Constricted, Depressed - Speech Speech: Appropriate - Formal Thought Process Formal Thought Process: Paranoia - Suicidal Ideation Suicidal Ideation: No - Homicidal Ideation Homicidal Ideation: No Goal/Treatment Plan - Goal/Treatment Plan Need for Continued Stay: Discharge may exacerbated symptoms, Severe functional impairment Progress Toward Problem(s) and Goals/Treatment Plan: Continue medications Support and psychoeducation daily Attend groups and activities daily After care planning by CARROLL
--- NOTE | 2018-06-08 10:10 | PCM.PYCHPN ---
Psychiatric Progress Note - Psychiatric Progress Note Patient seen today, length of contact: 16 min Patient Chief Complaint: "I'll hurt myself" Problems Identified/Issues Discussed: Patient seen and evaluated, chart reviewed and discussed with the nurse. Patient remained disorganized and internally preoccupied. Patient remained isolated, confined and withdrawn. He still reports of hearing voices. Patient still appears paranoid and delusional. He reports depressed mood and feelings of hopelessness and helplessness. He reports withdrawal symptoms including cramps, sweating, headaches anxiety. He is taking medication and denies any side effects. Symptoms are improving but needs more time for stabilization. Supportive therapy and psychoeducation were given. Medication Change: Yes Medical Record Reviewed: Yes Mental Status Examination - Cognitive Function Orientation: Person, Place, Situation, Time Memory: Intact Attention: WNL Concentration: Poor Association: Loose Fund of Knowledge: Poor - Mood Mood: Depressed, Anxious - Affect Affect: Constricted, Depressed - Speech Speech: Soft - Formal Thought Process Formal Thought Process: Hallucinations, Delusions, Paranoia, Loosening of associations - Suicidal Ideation Suicidal Ideation: No - Homicidal Ideation Homicidal Ideation: No Goal/Treatment Plan - Goal/Treatment Plan Need for Continued Stay: Severe depression anxiety, Severe functional impairment Progress Toward Problem(s) and Goals/Treatment Plan: Bipoar disorder mixed severe with psychotic features. R/O Schizoaffective disorder bipolar type Opioid use disorder Opioid withdrawal uncomplicated Cannabis use disorder severe Alcohol use disorder, severe CBT Psychoeducation Supportive therapy, group therapy Oxcarbazepine 150 mg PO BID Prolixin 10 mg PO BID Seroquel 200 mg PO QHS Trazodone for insomnia Hydroxyzine for anxiety Methadone taper Clonidine prn As need medications All risks, benefits and alternatives of the meds discussed, and the pt agreed and understood. Attend groups and activities Individual therapy daily Psychoeducation and support daily Encourage compliance with meds and after care Refer to outpatient program Teach healthy lifestyle methods, i.e. diet, exercise, meditation Smoking cessation and patch if needed - Smoking Cessation Smoking Cessation Initiated: No
[2018-06-10 09:28] VITALS: O2SAT 99
[2018-06-10] MEDS ORDERED: DiphenhydrAMINE 50 mg/ml Inj IM STA (18:10)
[2018-06-11 07:00] VITALS: BP 96/58; PULSE 54; RESP 18; TEMP 98.5
--- NOTE | 2018-06-11 08:46 | PCM.PYCHPN ---
Psychiatric Progress Note - Psychiatric Progress Note Patient seen today, length of contact: 16 min Patient Chief Complaint: "I m feeling better" Problems Identified/Issues Discussed: Patient seen and evaluated, chart reviewed and discussed with the nurse. Patient appears more disorganized and less internally preoccupied. Patient started coming out of his room. He still reports of hearing voices. He reports improvement in his mood and improvement in the feelings of hopelessness and helplessness. He reports withdrawal symptoms including cramps, sweating, headaches anxiety. He is taking medication and denies any side effects. Symptoms are improving but needs more time for stabilization. Supportive therapy and psychoeducation were given. Medication Change: Yes Medical Record Reviewed: Yes Mental Status Examination - Cognitive Function Orientation: Person, Place, Situation, Time Memory: Intact Attention: WNL Concentration: WNL Association: WNL Fund of Knowledge: Poor - Mood Mood: Depressed, Anxious - Affect Affect: Constricted, Depressed - Speech Speech: Soft - Formal Thought Process Formal Thought Process: Delusions, Paranoia - Suicidal Ideation Suicidal Ideation: No - Homicidal Ideation Homicidal Ideation: No Goal/Treatment Plan - Goal/Treatment Plan Need for Continued Stay: Severe depression anxiety, Severe functional impairment Progress Toward Problem(s) and Goals/Treatment Plan: Bipoar disorder mixed severe with psychotic features. R/O Schizoaffective disorder bipolar type Opioid use disorder Opioid withdrawal uncomplicated Cannabis use disorder severe Alcohol use disorder, severe CBT Psychoeducation Supportive therapy, group therapy Oxcarbazepine 150 mg PO BID Prolixin 10 mg PO BID Seroquel 200 mg PO QHS Trazodone for insomnia Hydroxyzine for anxiety Methadone taper Clonidine prn As need medications All risks, benefits and alternatives of the meds discussed, and the pt agreed and understood. Attend groups and activities Individual therapy daily Psychoeducation and support daily Encourage compliance with meds and after care Refer to outpatient program Teach healthy lifestyle methods, i.e. diet, exercise, meditation Smoking cessation and patch if needed
--- NOTE | 2018-06-11 09:57 | PCM.PYCHDC ---
Mental Status Examination - Mental Status Examination Orientation: Person, Place, Situation, Time Memory: Intact Mood: Neutral Affect: Constricted Speech: Soft Attention: WNL Concentration: WNL Association: WNL Fund of Knowledge: WNL Formal Thought Process: No Impairment Description of patient's judgement and insight: Good, fair Psychotic Thoughts and Behaviors: Denies any AVH Suicidal Ideation: No Current Homicidal Ideation?: No Discharge Summary - Discharge Note Reason for Hospitalization: Pt is 32 year old male who is single, has no children, and currently homeless and unemployed, presented to the ED with depressed mood and suicidal ideation. Deburring Technician is familiar with this patient. Pt has history of multiple inpatient psychiatric hospitalizations, he was recently discharged from [facility] 2 months ago. He has been non compliant with the follow up appointments with Dr. Dennis and MALVIN. As per the patient, he stopped the medications soon after the discharge and relapsed on heroin and cocaine. He reports of abusing 5-10 bags of heroin. Yesterday he injected almost 5 bags, became increasingly depressed and suicidal and started hearing voices to kill himself, so he came to the hospital to get help. Patient reports of depressed mood, feelings of hopelessness and helplessness, poor sleep and poor appetite. Patient reports withdrawal symptoms including abdominal cramps, anxiety, headaches and sweating. He reports auditory hallucinations command type to kill himself and reports paranoid delusions that people are after him. He reports irritability and agitation. He appears paranoid and deluiosnal. Pt smokes cigarettes, cocaine 1-2 dime bags (intranasally), but denies any other drugs. Pt also drinks EtOH occasionally "2-3 shots of [place]. Psych Hx: Pt reports prior attempts at suicide as well has homocidal ideations. Traumatic Hx: Pt denies Family Psych Hx: Pt denies Legal Hx: Pt has been arrested for domestic violence, assaults, and terroristic threats. PMH:None reported Consultations:: List each consultation separately and include: 1. Reason for request. 2. Findings. 3. Follow-up Summary of Hospital Course include:: 1. Description of specific treatment plan utilized for patients during their course of treatmen. 2. Summarize the time- course for resolution of acute symptoms and/or regressed behaviors. 3. Describe issues identified and worked on during hospitalization. 4. Describe medication utilized. 5. Describe medical problems identified and treated. 6. Reassessment of suicide risk Summary of Hospital Course: Pt is 32 year old male who is single, has no children, and currently homeless and unemployed, presented to the ED with depressed mood and suicidal ideation. Deburring Technician is familiar with this patient. Pt has history of multiple inpatient psychiatric hospitalizations, he was recently discharged from [facility] 2 months ago. He has been non compliant with the follow up appointments with Dr. Dennis and MALVIN. As per the patient, he stopped the medications soon after the discharge and relapsed on heroin and cocaine. He reports of abusing 5-10 bags of heroin. Yesterday he injected almost 5 bags, became increasingly depressed and suicidal and started hearing voices to kill himself, so he came to the hospital to get help. Patient reports of depressed mood, feelings of hopelessness and helplessness, poor sleep and poor appetite. Patient reports withdrawal symptoms including abdominal cramps, anxiety, headaches and sweating. He reports auditory hallucinations command type to kill himself and reports paranoid delusions that people are after him. He reports irritability and agitation. He appears paranoid and deluiosnal. Pt smokes cigarettes, cocaine 1-2 dime bags (intranasally), but denies any other drugs. Pt also drinks EtOH occasionally "2-3 shots of [place]. Psych Hx: Pt reports prior attempts at suicide as well has homocidal ideations. Traumatic Hx: Pt denies Family Psych Hx: Pt denies Legal Hx: Pt has been arrested for domestic violence, assaults, and terroristic threats. PMH:None reported - Diagnosis (1) Bipolar disorder, curr episode mixed, severe, with psychotic features Current Visit: Yes Status: Acute (2) Opioid use disorder, severe, dependence Current Visit: No Status: Acute - Final Diagnosis (DSM 5) Condition upon Discharge: STABLE DSM 5: Bipoar disorder mixed severe with psychotic features. R/O Schizoaffective disorder bipolar type Opioid use disorder Opioid withdrawal uncomplicated Cannabis use disorder severe Alcohol use disorder, severe Disposition: HOME/ ROUTINE Follow-up Treatment Plan: Bipoar disorder mixed severe with psychotic features. R/O Schizoaffective disorder bipolar type Opioid use disorder Opioid withdrawal uncomplicated Cannabis use disorder severe Alcohol use disorder, severe CBT Psychoeducation Supportive therapy, group therapy Oxcarbazepine 150 mg PO BID Prolixin 10 mg PO BID Seroquel 200 mg PO QHS Trazodone for insomnia Hydroxyzine for anxiety Methadone taper Clonidine prn As need medications All risks, benefits and alternatives of the meds discussed, and the pt agreed and understood. Attend groups and activities Individual therapy daily Psychoeducation and support daily Encourage compliance with meds and after care Refer to outpatient program Teach healthy lifestyle methods, i.e. diet, exercise, meditation Smoking cessation and patch if needed Prescriptions/Medication Reconciliation: Benztropine [Cogentin] 1 mg PO BID PRN #60 tab PRN Reason: Muscle Spasm Olanzapine [Zyprexa] 5 mg PO BID #60 tablet OXcarbazepine [Trileptal] 300 mg PO BID #60 tab Quetiapine Fumarate [Seroquel] 300 mg PO HS #30 tablet - Smoking Cessation Smoking Cessation Medication prescribed: No - Antipsychotic Medications Pt discharged on 2 or more routine antipsychotic medications: No
== END 2018-06-11 10:35 | disposition home or self-care (01) | DRG 885 ==
LOC: C.ER 17:02 → C.5E 21:13
PROVIDERS: ADMIT Psychiatry & Neurology Psychiatry; ATTEND Psychiatry & Neurology Psychiatry
PROC: HZ2ZZZZ Detoxification Services for Substance Abuse Treatment (ICD-10-PCS; principal; 2018-06-05)
PROC: HZ52ZZZ Individual Psychotherapy for Substance Abuse Treatment, Cognitive-Behavioral (ICD-10-PCS; 2018-06-05)
PROC: HZ59ZZZ Individual Psychotherapy for Substance Abuse Treatment, Supportive (ICD-10-PCS; 2018-06-05)
PROC: HZ56ZZZ Individual Psychotherapy for Substance Abuse Treatment, Psychoeducation (ICD-10-PCS; 2018-06-05)
PROC: HZ42ZZZ Group Counseling for Substance Abuse Treatment, Cognitive-Behavioral (ICD-10-PCS; 2018-06-05)
PROC: HZ46ZZZ Group Counseling for Substance Abuse Treatment, Psychoeducation (ICD-10-PCS; 2018-06-05)
PROC: GZHZZZZ Group Psychotherapy (ICD-10-PCS; 2018-06-05)
PROC: GZ58ZZZ Individual Psychotherapy, Cognitive-Behavioral (ICD-10-PCS; 2018-06-05)
PROC: GZ56ZZZ Individual Psychotherapy, Supportive (ICD-10-PCS; 2018-06-05)
DX: F31.64 Bipolar disorder, current episode mixed, severe, with psychotic features (principal); R45.851 Suicidal ideations; F11.23 Opioid dependence with withdrawal; F10.20 Alcohol dependence, uncomplicated; F12.20 Cannabis dependence, uncomplicated; F17.210 Nicotine dependence, cigarettes, uncomplicated; G47.00 Insomnia, unspecified; Z91.19 Patient's noncompliance with other medical treatment and regimen; Z59.0 Homelessness

== ENCOUNTER 2018-07-11 14:30 | Emergency (ER) | payer MEDICARE, MEDICAID ==
[2018-07-11 14:30] VITALS: BMI 28.8
[2018-07-11 14:37] VITALS: BP 158/81; PULSE 118; RESP 16; TEMP 98.5; O2SAT 98
== END 2018-07-11 14:42 | disposition left against medical advice (07) ==
LOC: C.ER 14:30
DX: Z02.89 Encounter for other administrative examinations (principal); F19.10 Other psychoactive substance abuse, uncomplicated

== ENCOUNTER 2018-08-04 07:21 | Emergency (ER) | payer MEDICARE, MEDICAID ==
[2018-08-04 07:22] VITALS: BMI 28.8
[2018-08-04 07:30] VITALS: O2SAT 100
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
[2018-08-04 08:15] LABS: URINE BACTERIA RARE (<OCC); URINE BILIRUBIN 1+ (NEGATIVE); URINE BLOOD NEGATIVE (NEGATIVE); URINE CLARITY Clear (Clear); URINE COLOR Yellow (YELLOW); URINE GLUCOSE (UA) NORMAL (Normal); URINE LEUKOCYTE ESTERASE NEG Leu/uL (Negative); URINE PROTEIN 1+ mg/dL (NEGATIVE)
[2018-08-04] MEDS ORDERED: Tetanus/Diphtheria Toxoids 0.5 ml Syringe IM ONE (08:41)
[2018-08-04] MEDS ORDERED: Tdap Vaccine 0.5 ml Vial (10-64 yrs) IM ONE (09:02)
[2018-08-04 09:06] VITALS: BP 118/71; PULSE 82; RESP 18; TEMP 98.6
--- NOTE | 2018-08-04 10:22 | RAD ---
PROCEDURE: Right Hand Radiographs. HISTORY: injury COMPARISON: None available. FINDINGS: BONES: No acute displaced fracture. JOINTS: No dislocation. SOFT TISSUES: Unremarkable. No evidence of radiopaque foreign body. OTHER FINDINGS: None. IMPRESSION: No acute displaced fracture, dislocation, or significant joint effusion identified. If symptoms persist, or if there is continued clinical concern, x-ray follow-up in 7-10 days should be considered.
== END 2018-08-04 09:06 | disposition home or self-care (01) ==
LOC: C.ER 07:21
DX: R30.0 Dysuria (principal); S60.221A Contusion of right hand, initial encounter; W22.8XXA Striking against or struck by other objects, initial encounter; L73.9 Follicular disorder, unspecified; Z72.0 Tobacco use; Z23 Encounter for immunization

== ENCOUNTER 2018-08-06 14:01 | Emergency (ER) | payer MEDICARE, MEDICAID ==
[2018-08-06 14:01] VITALS: BMI 28.8
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
[2018-08-06 16:28] VITALS: BP 120/72; PULSE 65; RESP 16; TEMP 97.8; O2SAT 98
== END 2018-08-06 16:50 | disposition home or self-care (01) ==
LOC: C.ER 14:01
DX: F11.20 Opioid dependence, uncomplicated (principal)

== ENCOUNTER 2018-09-11 16:50 | Inpatient (IN) | payer MEDICARE, MEDICAID ==
[2018-09-11 16:50] VITALS: BMI 28.8
--- NOTE | 2018-09-11 17:52 | C.PDOC ---
History Of Present Illness 32 y/o with PMH of schizophrenia, anxiety, depression presents to the ED c/o auditory hallucinations x 2 days. Associated SI with plan of cutting and HI. Recently became homeless. Admits to drug use, heroin today, 2 bags IV. Admitted for psychiatric evaluation prior, last 03/2018. Compliant with prescribed medications. Requesting inpatient admission. No established psychiatric followup. No physical complaints. Denies visual hallucinations, fevers, chills, chest pain, SOB, abdominal pain, N/V, rash, or any other associated symptoms. Time Seen by Provider: 09/11/18 17:09 Chief Complaint (Nursing): Psychiatric Evaluation History Per: Patient History/Exam Limitations: language barrier Past Medical History Reviewed: Historical Data, Nursing Documentation, Vital Signs Vital Signs: Last Vital Signs Temp 98.2 F 09/11/18 17:01 Pulse 84 09/11/18 17:01 Resp 18 09/11/18 17:01 BP 154/89 H 09/11/18 17:01 Pulse Ox 99 09/11/18 17:01 - Medical History PMH: Anxiety, Depression, Hepatitis (C), Pancreatitis, Schizophrenia (paranoid) Denies: Alzheimer's Disease, Asthma, Atrial Fibrillation, Bronchitis, Cardia Arrhythmia, CHF, COPD, Dementia, Diabetes, Emphysema, HIV, HTN, H ypercholesterolemia, Hyperthyroidism, Hypothyroidism, Kidney Stones, Migraine, Mitral Valve Prolapse, Multiple Sclerosis, Parkinson's Disease, Peripheral Edema, Pneumonia, Pulmonary Embolism, Chronic Kidney Disease, Seizures, Sexually Transmitted Disease, Sleep Apnea, TIA Surgical History: Denies: Pacemaker - [facility] Procedures DETOXIFICATION SERVICES FOR SUBSTANCE ABUSE TREATMENT (06/05/18) GROUP FLOOR SCRUBBER FOR SUBSTANCE ABUSE TREATMENT, PSYCHOEDUCATION (06/05/18) GROUP FLOOR SCRUBBER FOR SUBSTANCE ABUSE, COGNITIVE BEHAVIORAL (06/05/18) GROUP PSYCHOTHERAPY (06/05/18) INDIV PSYCHOTHERAPY FOR SUBSTANCE ABUSE TREATMENT, SUPPORT (06/05/18) INDIV PSYCHOTHERAPY FOR SUBSTANCE ABUSE, COGNITIV BEHAVIORAL (06/05/18) INDIV PSYCHOTHERAPY FOR SUBSTANCE ABUSE, PSYCHOEDUCATION (06/05/18) INDIVIDUAL PSYCHOTHERAPY, COGNITIVE-BEHAVIORAL (06/05/18) INDIVIDUAL PSYCHOTHERAPY, SUPPORTIVE (06/05/18) MEDICATION MANAGEMENT (04/08/18) PHARMACOTHERAPY FOR SUBSTANCE ABUSE, NICOTINE REPLACE (04/08/18) Family History: States: Unknown Family Hx - Social History Hx Tobacco Use: Yes Hx Alcohol Use: No Hx Substance Use: Yes - Immunization History Hx Tetanus Toxoid Vaccination: No Hx Influenza Vaccination: No Hx Pneumococcal Vaccination: No Review Of Systems Constitutional: Negative for: Fever, Chills Eyes: Negative for: Vision Change Cardiovascular: Negative for: Chest Pain, Palpitations, Light Headedness Respiratory: Negative for: Cough, Shortness of Breath Gastrointestinal: Negative for: Nausea, Vomiting, Abdominal Pain Genitourinary: Negative for: Dysuria, Frequency Musculoskeletal: Negative for: Neck Pain, Shoulder Pain, Back Pain Skin: Negative for: Rash Neurological: Negative for: Weakness, Numbness, Headache, Dizziness Psych: Positive for: Anxiety, Depression, Psychosis, Suicidal ideation. Negative for: Withdrawal Physical Exam - Physical Exam Appears: Well, Non-toxic, No Acute Distress Skin: Normal Color, Warm, Dry Head: Atraumatic, Normacephalic, No Tenderness Eye(s): bilateral: Normal Inspection, PERRL, EOMI Ear(s): Bilateral: Normal Nose: Normal Throat: Normal Neck: Normal, Normal ROM Cardiovascular: Rhythm Regular Respiratory: Normal Breath Sounds Gastrointestinal/Abdominal: Normal Exam Back: Normal Inspection Extremity: Normal ROM Extremity: Bilateral: Atraumatic, No Pedal Edema, Normal Color And Temperature, Normal ROM Pulses: Left Radial: Normal, Right Radial: Normal Neurological/Psych: Oriented x3, Normal Speech, Normal Cognition, Normal Motor, Normal Sensation Gait: Steady ED Course And Treatment - Laboratory Results Result Diagrams: 09/11/18 18:03 09/11/18 18:03 ECG: Viewed By Me ECG Rhythm: Sinus Rhythm ECG Interpretation: Normal Interpretation Of ECG: rate 82; NSR; normal intervals; no STEMI or t wave inversions Rate From EC O2 Sat by Pulse Oximetry: 99 Pulse Ox Interpretation: Normal - Radiology CXR: Interpreted by Me, Viewed By Me CXR Interpretation: Yes: No Acute Disease Medical Decision Making Medical Decision Making: Initial Plan: * CBC, CMP * CPK * Acetaminophen, Salicylate, Alcohol * UDS * CXR * EKG * IVF 19:25 Patient medically cleared for psychiatric admission. 19:50 Patient will be admitted to psychiatric floor under Dr. Wheatley for schizophrenia. Pt A&Ox3, ambulating with steady gait, with stable vital signs at this time. Disposition - Disposition Disposition: HOSPITALIZED Disposition Time: 19:50 Condition: STABLE - Clinical Impression Clinical Impression: Schizophrenia
[2018-09-11 18:11] LABS: BASO % 0.7 % (0.0-2.0); EOS # 0.1 K/uL (0.0-0.7); EOS % 1.7 % (0.0-4.0); HEMOGLOBIN 13.8 g/dL (12.0-18.0); LYMPH # 1.7 K/uL (1.0-4.3); LYMPH % 33.9 % (20.0-40.0); MEAN CELL VOLUME 89.9 fL (80.0-94.0); MEAN CORPUSCULAR HEMOGLOBIN 30.5 pg (27.0-31.0); MEAN CORPUSCULAR HGB CONC 33.9 g/dL (33.0-37.0); MEAN PLATELET VOLUME 9.1 fL (7.2-11.7); MONO # 0.4 K/uL (0.0-0.8); MONO % 7.4 % (0.0-10.0); NEUT # 2.7 K/uL (1.8-7.0); NEUT % 56.3 % (50.0-75.0); NRBC % 0.1 % (0.0-2.0); RBC 4.53 Mil/uL (4.40-5.90); RED CELL DISTRIBUTION WIDTH 13.7 % (11.5-14.5); WHITE BLOOD COUNT 4.9 K/uL (4.8-10.8)
[2018-09-11 18:20] LABS: URINE BILIRUBIN NEGATIVE (NEGATIVE); URINE BLOOD NEGATIVE (NEGATIVE); URINE CLARITY Hazy (Clear); URINE COLOR Yellow (YELLOW); URINE GLUCOSE (UA) NORMAL (Normal); URINE LEUKOCYTE ESTERASE NEG Leu/uL (Negative); URINE PROTEIN NEGATIVE (NEGATIVE); URINE UROBILINOGEN NORMAL mg/dL (0.2-1.0)
[2018-09-11 18:37] LABS: ACETAMINOPHEN < 10.0 ug/mL (10.0-30.0); SALICYLATE < 1.0 mg/dL 1
[2018-09-11 18:38] LABS: ALB/GLOB RATIO 1.6 (1.0-2.1); ALBUMIN 4.5 g/dL (3.5-5.0); ALT/SGPT 84 U/L (21-72); AST/SGOT 74 U/L (17-59); BLOOD UREA NITROGEN 15 mg/dL (9-20); CALCIUM 9.2 mg/dl (8.6-10.4); GFR NON-AFRICAN AMERICAN > 60
[2018-09-11 18:39] LABS: BARBITURATES, UR NEGATIVE (NEGATIVE); BENZODIAZEPINES, UR NEGATIVE (NEGATIVE); PHENCYCLIDINE, UR NEGATIVE (NEGATIVE)
[2018-09-11 18:40] LABS: OPIATES, UR POSITIVE (NEGATIVE)
[2018-09-11] MEDS ORDERED: Sodium Chloride 0.9% 1,000 ML IV ONE (19:38)
[2018-09-11 19:56] VITALS: O2SAT 99
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
--- NOTE | 2018-09-12 10:12 | RAD ---
HISTORY: Detox/Psy COMPARISON: Chest x-ray performed 07/23/17 TECHNIQUE: Chest, one view. FINDINGS: LUNGS: No focal consolidation. Please note that chest x-ray has limited sensitivity for the detection of pulmonary masses. PLEURA: No significant pleural effusion identified. No definite pneumothorax . CARDIOVASCULAR: Heart size appears within normal limits. No significant atherosclerotic calcification present. OSSEOUS STRUCTURES: No acute osseous abnormality identified. VISUALIZED UPPER ABDOMEN: Unremarkable. OTHER FINDINGS: None. IMPRESSION: No focal consolidation.
--- NOTE | 2018-09-12 11:52 | CARD ---
APPROVED REPORT Date of service: 09/11/2018 EKG Measurement Heart [id number] <Conclusion> Normal sinus rhythm Normal ECG
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
[2018-09-12] MEDS ORDERED: Aluminum Hydroxide/Magnesium Hydroxide Susp (30 mL) PO PRN (23:05)
[2018-09-13] MEDS ORDERED: Pneumococcal 23-Valent Vaccine IM ONE (10:00)
[2018-09-13] MEDS ORDERED: Influenza Vaccine 60 MCG/0.5 ML SYR (3 yr & up) IM ONE (10:00)
--- NOTE | 2018-09-13 13:10 | PCM.PYCHPN ---
Psychiatric Progress Note - Psychiatric Progress Note Patient seen today, length of contact: 15 min Patient Chief Complaint: "OK" Problems Identified/Issues Discussed: The pt is seen, chart reviewed, case discussed with staff. The pt is compliant with medications and reports no side-effects. Symptoms are improving but needs more time to stabilize. Pt is very anti-social with no regards to rules, laws, consequences. Staff are warned about his potential risk. He needs a structured environment and intensive therapy Pt attends only a few groups and activities. Support given, psycho-education provided. After care discussed. Medication Change: No Medical Record Reviewed: Yes Mental Status Examination - Cognitive Function Orientation: Person, Place, Situation, Time Memory: Intact Attention: WNL Concentration: Poor Association: WNL Fund of Knowledge: WNL - Mood Mood: Anxious - Affect Affect: Broad - Speech Speech: Appropriate - Formal Thought Process Formal Thought Process: Hallucinations, Delusions, Paranoia, Loosening of associations - Suicidal Ideation Suicidal Ideation: No - Homicidal Ideation Homicidal Ideation: No Goal/Treatment Plan - Goal/Treatment Plan Need for Continued Stay: Discharge may exacerbated symptoms, Severe functional impairment Progress Toward Problem(s) and Goals/Treatment Plan: Continue medications Support and psychoeducation daily Attend groups and activities daily After care planning by CARROLL
--- NOTE | 2018-09-16 11:11 | PCM.PYCHPN ---
Psychiatric Progress Note - Psychiatric Progress Note Patient seen today, length of contact: 15 min Patient Chief Complaint: I m still hearing voices.' Problems Identified/Issues Discussed: Patient was seen and evaluated, chart reviewed and discussed with staff. Patient still reports of hearing voices and reports paranoid that people are following him. He still appears paranoid and delusional. He reports depressed mood and at times feelings of hopelessness and he lplessness. He is starting medication he denies any side effects. Symptoms are improving gradually needs to stay longer for further stabilization. Supportive therapy was given Medication Change: Yes Medical Record Reviewed: Yes Mental Status Examination - Cognitive Function Orientation: Person, Place, Situation, Time Memory: Intact Attention: WNL Concentration: Poor Association: Loose Fund of Knowledge: WNL - Mood Mood: Anxious - Affect Affect: Broad - Speech Speech: Appropriate - Formal Thought Process Formal Thought Process: Hallucinations, Delusions, Paranoia, Loosening of associations - Suicidal Ideation Suicidal Ideation: No - Homicidal Ideation Homicidal Ideation: No Goal/Treatment Plan - Goal/Treatment Plan Need for Continued Stay: Discharge may exacerbated symptoms, Severe functional impairment Progress Toward Problem(s) and Goals/Treatment Plan: Schizoaffective disorder bipolar type Heroin use disorder severe Heroin withdrawal Cannabis use disorder severe Cocaine use disorder moderate CBT Psychoeducation Supportive therapy and group therapy Methadone taper Trileptal 300 mg p.o. twice daily Olanzapine 10 mg p.o. twice daily Ativan 1 mg p.o. every 6 hours as needed Seroquel 200 mg p.o. nightly - Smoking Cessation Smoking Cessation Initiated: No
[2018-09-17 06:45] VITALS: RESP 18
[2018-09-19 06:40] VITALS: BP 111/68; PULSE 70; TEMP 98.7
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
== END 2018-09-19 11:15 | disposition home or self-care (01) | DRG 885 ==
LOC: C.ER 16:50 → C.5E 19:56
PROVIDERS: ADMIT Psychiatry & Neurology Psychiatry; ATTEND Psychiatry & Neurology Psychiatry
PROC: GZ3ZZZZ Medication Management (ICD-10-PCS; principal; 2018-09-11)
PROC: HZ2ZZZZ Detoxification Services for Substance Abuse Treatment (ICD-10-PCS; 2018-09-11)
PROC: GZ56ZZZ Individual Psychotherapy, Supportive (ICD-10-PCS; 2018-09-11)
PROC: GZHZZZZ Group Psychotherapy (ICD-10-PCS; 2018-09-11)
DX: F25.0 Schizoaffective disorder, bipolar type (principal); F11.23 Opioid dependence with withdrawal; R45.851 Suicidal ideations; F12.20 Cannabis dependence, uncomplicated; F14.10 Cocaine abuse, uncomplicated; F20.0 Paranoid schizophrenia; R45.850 Homicidal ideations; F17.210 Nicotine dependence, cigarettes, uncomplicated; B19.20 Unspecified viral hepatitis C without hepatic coma; Z59.0 Homelessness; Z91.5 Personal history of self-harm

== ENCOUNTER 2018-09-20 22:11 | Emergency (ER) | payer MEDICARE, MEDICAID ==
[2018-09-20 22:12] VITALS: BMI 28.8
[2018-09-20 22:21] VITALS: O2SAT 98
[2018-09-20 22:57] LABS: BASO % 0.3 % (0.0-2.0); EOS # 0.1 K/uL (0.0-0.7); EOS % 1.6 % (0.0-4.0); HEMOGLOBIN 13.1 g/dL (12.0-18.0); LYMPH # 1.3 K/uL (1.0-4.3); LYMPH % 18.7 % (20.0-40.0); MEAN CELL VOLUME 88.1 fL (80.0-94.0); MEAN CORPUSCULAR HGB CONC 34.1 g/dL (33.0-37.0); MEAN PLATELET VOLUME 7.7 fL (7.2-11.7); MONO # 0.6 K/uL (0.0-0.8); NEUT # 4.9 K/uL (1.8-7.0); NEUT % 71.4 % (50.0-75.0); RBC 4.35 Mil/uL (4.40-5.90); RED CELL DISTRIBUTION WIDTH 14.3 % (11.5-14.5); WHITE BLOOD COUNT 6.9 K/uL (4.8-10.8)
[2018-09-20 23:04] LABS: URINE BACTERIA RARE (<OCC); URINE BILIRUBIN NEGATIVE (NEGATIVE); URINE BLOOD NEGATIVE (NEGATIVE); URINE CLARITY Clear (Clear); URINE COLOR Yellow (YELLOW); URINE GLUCOSE (UA) NORMAL (Normal); URINE LEUKOCYTE ESTERASE NEG Leu/uL (Negative); URINE PROTEIN 2+ mg/dL (NEGATIVE); URINE UROBILINOGEN NORMAL mg/dL (0.2-1.0)
[2018-09-20 23:16] LABS: ALB/GLOB RATIO 1.8 (1.0-2.1); ALBUMIN 4.3 g/dL (3.5-5.0); ALT/SGPT 111 U/L (21-72); AST/SGOT 70 U/L (17-59); BLOOD UREA NITROGEN 23 mg/dL (9-20); CALCIUM 8.9 mg/dl (8.6-10.4); GFR NON-AFRICAN AMERICAN > 60
[2018-09-20 23:16] LABS: BARBITURATES, UR NEGATIVE (NEGATIVE); BENZODIAZEPINES, UR NEGATIVE (NEGATIVE); OPIATES, UR POSITIVE (NEGATIVE); PHENCYCLIDINE, UR NEGATIVE (NEGATIVE)
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
[2018-09-20 23:51] VITALS: BP 123/66; PULSE 108; RESP 16; TEMP 98.3
--- NOTE | 2018-09-22 13:25 | CARD ---
APPROVED REPORT Date of service: 09/20/2018 EKG Measurement Heart [id number] <Conclusion> Normal sinus rhythm Normal ECG
== END 2018-09-20 23:55 | disposition home or self-care (01) ==
LOC: C.ER 22:11
DX: T40.1X1A Poisoning by heroin, accidental (unintentional), initial encounter (principal); Y92.9 Unspecified place or not applicable; F41.9 Anxiety disorder, unspecified; F32.9 Major depressive disorder, single episode, unspecified
CPT/HCPCS: 80053; 81001; 82948; 83735; 84100; 85025; 93005; 99284; G0480

== ENCOUNTER 2018-09-25 17:18 | Emergency (ER) | payer MEDICARE, MEDICAID ==
[2018-09-25 17:21] VITALS: BMI 34.0
[2018-09-25] MEDS ORDERED: Naloxone 0.4 mg/ml Inj (Adult) IM STA (18:53)
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
[2018-09-25 19:13] VITALS: BP 119/74; PULSE 84; RESP 10; TEMP 98.3
[2018-09-25] MEDS ORDERED: Naloxone 0.4 mg/ml Inj (Adult) ONE (19:29)
[2018-09-26 00:50] VITALS: O2SAT 96
--- NOTE | 2018-09-26 11:15 | RAD ---
Date of service: 09/25/2018 PROCEDURE: Radiographs of the right hand HISTORY: punched wall, mid-hand pain/swelling COMPARISON: 08/04/2018. FINDINGS: BONES: Bone alignment and mineralization are normal. There is no acute displaced fracture or bone destruction. JOINTS: The joint spaces are preserved. SOFT TISSUES: Normal. OTHER FINDINGS: None. IMPRESSION: No acute displaced fracture or dislocation.
== END 2018-09-25 19:33 | disposition home or self-care (01) ==
LOC: C.ER 17:18
DX: F11.20 Opioid dependence, uncomplicated (principal); S60.221A Contusion of right hand, initial encounter; W22.09XA Striking against other stationary object, initial encounter; Y92.89 Other specified places as the place of occurrence of the external cause; Z72.0 Tobacco use
CPT/HCPCS: 73130; 96372; 99285; J2310

== ENCOUNTER 2018-10-01 23:06 | Inpatient (IN) | payer MEDICARE, MEDICAID ==
[2018-10-01 23:07] VITALS: BMI 34.0
[2018-10-01 23:21] VITALS: O2SAT 99
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
[2018-10-02] MEDS ORDERED: Bacitracin 500 Units/gm Oint Foilpak UD ONE (00:17)
[2018-10-02 00:25] LABS: BASO % 0.3 % (0.0-2.0); EOS # 0.1 K/uL (0.0-0.7); EOS % 1.1 % (0.0-4.0); HEMOGLOBIN 13.7 g/dL (12.0-18.0); LYMPH # 1.7 K/uL (1.0-4.3); LYMPH % 29.7 % (20.0-40.0); MEAN CELL VOLUME 89.5 fL (80.0-94.0); MEAN CORPUSCULAR HEMOGLOBIN 30.9 pg (27.0-31.0); MEAN CORPUSCULAR HGB CONC 34.6 g/dL (33.0-37.0); MEAN PLATELET VOLUME 8.2 fL (7.2-11.7); MONO # 0.6 K/uL (0.0-0.8); MONO % 9.4 % (0.0-10.0); NEUT # 3.5 K/uL (1.8-7.0); NEUT % 59.5 % (50.0-75.0); NRBC % 0.1 % (0.0-2.0); RBC 4.43 Mil/uL (4.40-5.90); RED CELL DISTRIBUTION WIDTH 13.8 % (11.5-14.5); WHITE BLOOD COUNT 5.9 K/uL (4.8-10.8)
[2018-10-02 00:29] LABS: URINE BILIRUBIN NEGATIVE (NEGATIVE); URINE BLOOD NEGATIVE (NEGATIVE); URINE CLARITY Clear (Clear); URINE COLOR Yellow (YELLOW); URINE GLUCOSE (UA) NORMAL (Normal); URINE LEUKOCYTE ESTERASE NEG Leu/uL (Negative); URINE PROTEIN NEGATIVE (NEGATIVE)
[2018-10-02 00:56] LABS: ALB/GLOB RATIO 1.6 (1.0-2.1); ALBUMIN 4.4 g/dL (3.5-5.0); ALT/SGPT 71 U/L (21-72); AST/SGOT 49 U/L (17-59); BLOOD UREA NITROGEN 17 mg/dL (9-20); CALCIUM 9.3 mg/dl (8.6-10.4); GFR NON-AFRICAN AMERICAN > 60
[2018-10-02 01:12] LABS: BARBITURATES, UR NEGATIVE (NEGATIVE); BENZODIAZEPINES, UR NEGATIVE (NEGATIVE); PHENCYCLIDINE, UR NEGATIVE (NEGATIVE)
[2018-10-02 01:27] LABS: OPIATES, UR POSITIVE (NEGATIVE)
--- NOTE | 2018-10-02 02:51 | PCM.BM ---
<NurysMarek - Last Filed: 10/02/18 02:48> Treatment Plan Problems - Problems identified on initial assessmt SUICIDAL IDEATION Date Initiated: 10/02/18 Time Initiated: 02:10 Assessment reference: NA Status: Active SUBSTANCE ABUSE Date Initiated: 10/02/18 Time Initiated: 02:10 Assessment reference: NA Status: Active Comment: USES HEROIN & MARIJUANA Treatment assets and liabiliti Patient Assests: cooperative, insightful, motivated, self-reliant, ADL independent, physically healthy, good support system, negotiates basic needs, financial stabiity, cognitively intact - Milieu Protocol Maintain good personal hygiene: daily Encourage regular showers, daily Remind patient to perform daily oral care, daily Assist patient to perform ADL's Maintain personal safety: every shift Educate patient to report safety concerns to staff, every shift Monitor environment for contraband/sharps Medication safety: Monitor for expected outcome, potential side effects: every shift, Assess barriers to learning: every shift, Assess readiness for medication education: every shift <Dominick Lara - Last Filed: 10/03/18 10:11> - Diagnosis (1) Schizo affective schizophrenia Status: Acute Interventions: 10/03/18 10:10 * Assess/adjust medications daily and /or as needed * See patient on an individual basis 7x/week to assess status of hallucinations * Discuss risks, benefits, side effects and alternatives of medications * (2) Heroin dependence Status: Acute Interventions: 10/03/18 10:11 * Assess 7x/week regarding severity of withdrawal * Educate regarding risks, benefits, side effects and alternatives of medications * Use Motivational Interviewing for abstinence * Use CBT for relapse prevention * Medication management for withdrawal symptoms * Encourage medication assisted treatment *
[2018-10-02] MEDS ORDERED: Benzocaine/Menthol (Cepacol) Lozenge PO PRN (10:06)
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
[2018-10-02] MEDS ORDERED: Aluminum Hydroxide/Magnesium Hydroxide Susp (30 mL) PO PRN (10:09)
--- NOTE | 2018-10-03 10:08 | PCM.PYCHPN ---
Psychiatric Progress Note - Psychiatric Progress Note Patient seen today, length of contact: 15 min Patient Chief Complaint: I relapsed on heroin and started hearing voices.' Medication Change: Yes Medical Record Reviewed: Yes Mental Status Examination - Cognitive Function Orientation: Person, Place, Situation, Time Memory: Intact Attention: WNL Concentration: Poor Association: Loose Fund of Knowledge: Poor - Mood Mood: Depressed, Anxious - Affect Affect: Constricted - Formal Thought Process Formal Thought Process: Hallucinations, Delusions, Paranoia, Loosening of associations - Suicidal Ideation Suicidal Ideation: No - Homicidal Ideation Homicidal Ideation: No Goal/Treatment Plan - Goal/Treatment Plan Need for Continued Stay: Severe functional impairment Progress Toward Problem(s) and Goals/Treatment Plan: Schizoaffective disorder bipolar type Opioid use disorder severe Opioid withdrawal Cocaine use disorder severe CBT Separation Supportive therapy and group therapy Methadone taper Trileptal 300 mg p.o. twice daily Seroquel 200 mg p.o. nightly Hydroxyzine 25 mg p.o. every 6 hours as needed
[2018-10-04] MEDS ORDERED: Influenza Vaccine 60 mcg/0.5 mL SYR (4YR UP) IM ONE (10:00)
[2018-10-04] MEDS ORDERED: Pneumococcal 23-Valent Vaccine IM ONE (10:30)
--- NOTE | 2018-10-05 23:07 | PCM.PYCHPN ---
Psychiatric Progress Note - Psychiatric Progress Note Patient seen today, length of contact: 15 min Patient Chief Complaint: "Depressed" Medication Change: Yes Medical Record Reviewed: Yes Mental Status Examination - Cognitive Function Orientation: Person, Place, Situation, Time Memory: Intact Attention: Poor Concentration: Poor Association: Loose Fund of Knowledge: Poor - Mood Mood: Depressed, Anxious - Affect Affect: Constricted, Depressed - Speech Speech: Soft - Formal Thought Process Formal Thought Process: Hallucinations, Delusions, Paranoia, Loosening of associations - Suicidal Ideation Suicidal Ideation: No - Homicidal Ideation Homicidal Ideation: No Goal/Treatment Plan - Goal/Treatment Plan Need for Continued Stay: Severe depression anxiety
--- NOTE | 2018-10-06 23:56 | PCM.PYCHPN ---
Psychiatric Progress Note - Psychiatric Progress Note Patient seen today, length of contact: 15 min Patient Chief Complaint: I am still feeling irritable.' Problems Identified/Issues Discussed: Patient was seen and evaluated, chart reviewed and discussed with staff. Per staff patient has started coming out of his room and appears little better than before. Patient reports improvement in the auditory hallucinations and paranoia He reports some improvement in that irritability and agitation. He reports improvement in the withdrawal symptoms He is taking medication but denies any side effects Supportive therapy was given Medication Change: Yes Medical Record Reviewed: Yes Mental Status Examination - Cognitive Function Orientation: Person, Place, Situation, Time Memory: Intact Attention: WNL Concentration: WNL Association: Loose Fund of Knowledge: Poor - Mood Mood: Depressed, Anxious - Affect Affect: Constricted, Depressed - Speech Speech: Soft - Formal Thought Process Formal Thought Process: Hallucinations, Delusions - Suicidal Ideation Suicidal Ideation: No - Homicidal Ideation Homicidal Ideation: No Goal/Treatment Plan - Goal/Treatment Plan Need for Continued Stay: Severe depression anxiety Progress Toward Problem(s) and Goals/Treatment Plan: Schizoaffective disorder bipolar type Opioid use disorder severe Opioid withdrawal Cocaine use disorder severe CBT Separation Supportive therapy and group therapy Methadone taper Trileptal 300 mg p.o. twice daily Seroquel 200 mg p.o. nightly Hydroxyzine 25 mg p.o. every 6 hours as needed Olanzapine 5 g p.o. twice daily - Smoking Cessation Smoking Cessation Initiated: No
[2018-10-07 06:39] VITALS: RESP 20; TEMP 97.6
[2018-10-07 09:29] VITALS: BP 121/75; PULSE 94
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
--- NOTE | 2018-10-07 23:52 | PCM.PYCHPN ---
Psychiatric Progress Note - Psychiatric Progress Note Patient seen today, length of contact: 15 min Patient Chief Complaint: I am feeling little better Problems Identified/Issues Discussed: Patient seen and evaluated, chart reviewed and discussed the staff. He reports some improvement in the voices and paranoia. He also reports improvement in the depressive and withdrawal symptoms. He wants to go to rehab after discharge He is taking medication denies any side effects Supportive therapy was given Medication Change: Yes Medical Record Reviewed: Yes Mental Status Examination - Cognitive Function Orientation: Person, Place, Situation, Time Memory: Intact Attention: WNL Concentration: Poor Association: Loose Fund of Knowledge: Poor - Mood Mood: Depressed, Anxious - Affect Affect: Constricted, Depressed - Speech Speech: Soft - Formal Thought Process Formal Thought Process: Hallucinations, Delusions, Paranoia, Loosening of associations - Suicidal Ideation Suicidal Ideation: No - Homicidal Ideation Homicidal Ideation: No Goal/Treatment Plan - Goal/Treatment Plan Need for Continued Stay: Severe depression anxiety Progress Toward Problem(s) and Goals/Treatment Plan: Schizoaffective disorder bipolar type Opioid use disorder severe Opioid withdrawal Cocaine use disorder severe CBT Separation Supportive therapy and group therapy Methadone taper Trileptal 300 mg p.o. twice daily Seroquel 200 mg p.o. nightly Hydroxyzine 25 mg p.o. every 6 hours as needed - Smoking Cessation Smoking Cessation Initiated: No
== END 2018-10-07 12:30 | disposition home or self-care (01) | DRG 885 ==
LOC: C.ER 23:06 → C.5E 10-02 01:32
PROVIDERS: ADMIT Psychiatry & Neurology Psychiatry; ATTEND Psychiatry & Neurology Psychiatry
PROC: HZ2ZZZZ Detoxification Services for Substance Abuse Treatment (ICD-10-PCS; principal; 2018-10-02)
PROC: HZ52ZZZ Individual Psychotherapy for Substance Abuse Treatment, Cognitive-Behavioral (ICD-10-PCS; 2018-10-02)
PROC: HZ59ZZZ Individual Psychotherapy for Substance Abuse Treatment, Supportive (ICD-10-PCS; 2018-10-02)
PROC: HZ56ZZZ Individual Psychotherapy for Substance Abuse Treatment, Psychoeducation (ICD-10-PCS; 2018-10-02)
PROC: HZ42ZZZ Group Counseling for Substance Abuse Treatment, Cognitive-Behavioral (ICD-10-PCS; 2018-10-02)
PROC: HZ46ZZZ Group Counseling for Substance Abuse Treatment, Psychoeducation (ICD-10-PCS; 2018-10-02)
PROC: GZHZZZZ Group Psychotherapy (ICD-10-PCS; 2018-10-02)
PROC: GZ58ZZZ Individual Psychotherapy, Cognitive-Behavioral (ICD-10-PCS; 2018-10-02)
PROC: GZ56ZZZ Individual Psychotherapy, Supportive (ICD-10-PCS; 2018-10-02)
DX: F25.0 Schizoaffective disorder, bipolar type (principal); F11.23 Opioid dependence with withdrawal; F14.20 Cocaine dependence, uncomplicated; R45.851 Suicidal ideations; Z59.0 Homelessness; Z91.19 Patient's noncompliance with other medical treatment and regimen; S41.112A Laceration without foreign body of left upper arm, initial encounter; X78.1XXA Intentional self-harm by knife, initial encounter

== ENCOUNTER 2018-10-22 06:57 | Emergency (ER) | payer MEDICARE, MEDICAID ==
[2018-10-22 06:57] VITALS: BMI 34.0
[2018-10-22 07:12] VITALS: BP 174/68; PULSE 73; RESP 16; TEMP 98.7; O2SAT 98
[2018-10-22 07:50] LABS: URINE BILIRUBIN NEGATIVE (NEGATIVE); URINE BLOOD NEGATIVE (NEGATIVE); URINE CLARITY Clear (Clear); URINE GLUCOSE (UA) NORMAL (Normal); URINE LEUKOCYTE ESTERASE NEG Leu/uL (Negative); URINE PROTEIN NEGATIVE (NEGATIVE)
--- NOTE | 2018-10-22 07:53 | C.PDOC ---
History Of Present Illness 32 y/o male presents to the ER complaining about rash to the tip of his penis. Patient states that he has no associated dysuria. Patient denies having fever, chills, penile pain, penile discharge, and hematuria. Time Seen by Provider: 10/22/18 07:32 Chief Complaint (Nursing): Abnormal Skin Integrity History Per: Patient History/Exam Limitations: no limitations Onset/Duration Of Symptoms: Days Current Symptoms Are (Timing): Still Present Severity: Moderate Past Medical History Reviewed: Historical Data, Nursing Documentation, Vital Signs Vital Signs: Last Vital Signs Temp 98.7 F 10/22/18 07:10 Pulse 73 10/22/18 07:10 Resp 16 10/22/18 07:10 BP 174/68 H 10/22/18 07:10 Pulse Ox 98 10/22/18 07:10 - Medical History PMH: Anxiety, Dementia, Depression, Hepatitis (C), Pancreatitis, Schizophrenia - [facility] Procedures DETOXIFICATION SERVICES FOR SUBSTANCE ABUSE TREATMENT (10/02/18) GROUP ANSWERING SERVICE AGENT FOR SUBSTANCE ABUSE TREATMENT, PSYCHOEDUCATION (10/02/18) GROUP ANSWERING SERVICE AGENT FOR SUBSTANCE ABUSE, COGNITIVE BEHAVIORAL (10/02/18) GROUP PSYCHOTHERAPY (10/02/18) INDIV PSYCHOTHERAPY FOR SUBSTANCE ABUSE TREATMENT, SUPPORT (10/02/18) INDIV PSYCHOTHERAPY FOR SUBSTANCE ABUSE, COGNITIV BEHAVIORAL (10/02/18) INDIV PSYCHOTHERAPY FOR SUBSTANCE ABUSE, PSYCHOEDUCATION (10/02/18) INDIVIDUAL PSYCHOTHERAPY, COGNITIVE-BEHAVIORAL (10/02/18) INDIVIDUAL PSYCHOTHERAPY, SUPPORTIVE (10/02/18) MEDICATION MANAGEMENT (09/11/18) PHARMACOTHERAPY FOR SUBSTANCE ABUSE, NICOTINE REPLACE (04/08/18) Family History: States: No Known Family Hx - Social History Hx Tobacco Use: Yes Hx Alcohol Use: No Hx Substance Use: Yes - Immunization History Hx Tetanus Toxoid Vaccination: No Hx Influenza Vaccination: No Hx Pneumococcal Vaccination: No Review Of Systems Except As Marked, All Systems Reviewed And Found Negative. Constitutional: Negative for: Fever, Chills Genitourinary: Positive for: Rash. Negative for: Dysuria, Hematuria, Penile Discharge, Penile Pain Physical Exam - Physical Exam Appears: Non-toxic, No Acute Distress Skin: Warm, Dry, Rash (maculopapular rash to tip of penis), Other (no blisters to penis) Head: Atraumatic, Normacephalic Eye(s): bilateral: Normal Inspection Nose: Normal Oral Mucosa: Moist Neck: Supple Chest: Symmetrical Cardiovascular: Rhythm Regular Respiratory: Normal Breath Sounds Male Genital: No Testicular Tenderness, No Testicular Swelling, No Scrotal Swelling, No Circumcised, Other (maculopapular rash to tip of penis, no blisters, no discharge) Neurological/Psych: Oriented x3, Normal Speech ED Course And Treatment O2 Sat by Pulse Oximetry: 98 (RA) Pulse Ox Interpretation: Normal Progress Note: Patient requesting discharge and refused STD treatment Reassessment Condition: Unchanged Medical Decision Making Medical Decision Making: Plan: --Labs --UA Updates: Patient has been discharged with prescription for Lotrisone cream and instructed to follow up in [facility]. Disposition Counseled Patient/Family Regarding: Diagnosis, Need For Followup - Disposition Referrals: [facility] at [facility] [Outside] [facility] [Outside] Disposition: HOME/ ROUTINE Disposition Time: 08:00 Condition: GOOD Additional Instructions: Follow up at clinic for further evaluation Prescriptions: Clotrimazole/Betamethasone [Lotrisone] 15 gm EXT BID #1 tube Instructions: Skin Rash (DC) Forms: [employer] (Bruneian) Print Language: BOTSWANAN - POA Present On Arrival: None - Clinical Impression Clinical Impression: Skin irritation, Tinea - PA / EDITOR PUBLICATIONS / Resident Statement MD/DO has reviewed & agrees with the documentation as recorded. - Scribe Statement The provider has reviewed the documentation as recorded by the Scribe Maurisio Brown Provider Attestation All medical record entries made by the Scribe were at my direction and personally dictated by me. I have reviewed the chart and agree that the record accurately reflects my personal performance of the history, physical exam, me dical decision making, and the department course for this patient. I have also personally directed, reviewed, and agree with the discharge instructions and disposition.
[2018-10-22 08:04] LABS: URINE COLOR YELLOW (YELLOW)
== END 2018-10-22 08:19 | disposition home or self-care (01) ==
LOC: C.ER 06:57
DX: B35.9 Dermatophytosis, unspecified (principal)

== ENCOUNTER 2018-10-31 15:29 | Emergency (ER) | payer MEDICARE, MEDICAID ==
[2018-10-31 15:29] VITALS: BMI 34.0
[2018-10-31] MEDS ORDERED: Midazolam 2 MG/2 ML VIAL IVP ONE (15:51)
--- NOTE | 2018-10-31 15:53 | C.PDOC ---
History Of Present Illness 32 y/o male pt with hx of schizophrenia and self harming presents to the ER with c/o jerking and yelling after consuming 2 bags of heroin. As per pt ran out of risperdal x2 days ago and then decided to consume x2 bags of heroin which led to the uncontrollable jerking and yelling. Time Seen by Provider: 10/31/18 15:40 Chief Complaint (Nursing): Substance Abuse History Per: Patient, Family () History/Exam Limitations: no limitations Onset/Duration Of Symptoms: Days Current Symptoms Are (Timing): Still Present Past Medical History Reviewed: Historical Data, Nursing Documentation, Vital Signs - Medical History PMH: Anxiety, Dementia, Depression, Hepatitis (C), Pancreatitis, Schizophrenia - [facility] Procedures DETOXIFICATION SERVICES FOR SUBSTANCE ABUSE TREATMENT (10/02/18) GROUP HEALTHCARE REPRESENTATIVE FOR SUBSTANCE ABUSE TREATMENT, PSYCHOEDUCATION (10/02/18) GROUP HEALTHCARE REPRESENTATIVE FOR SUBSTANCE ABUSE, COGNITIVE BEHAVIORAL (10/02/18) GROUP PSYCHOTHERAPY (10/02/18) INDIV PSYCHOTHERAPY FOR SUBSTANCE ABUSE TREATMENT, SUPPORT (10/02/18) INDIV PSYCHOTHERAPY FOR SUBSTANCE ABUSE, COGNITIV BEHAVIORAL (10/02/18) INDIV PSYCHOTHERAPY FOR SUBSTANCE ABUSE, PSYCHOEDUCATION (10/02/18) INDIVIDUAL PSYCHOTHERAPY, COGNITIVE-BEHAVIORAL (10/02/18) INDIVIDUAL PSYCHOTHERAPY, SUPPORTIVE (10/02/18) MEDICATION MANAGEMENT (09/11/18) PHARMACOTHERAPY FOR SUBSTANCE ABUSE, NICOTINE REPLACE (04/08/18) Family History: States: Unknown Family Hx - Social History Hx Tobacco Use: Yes Hx Alcohol Use: No Hx Substance Use: Yes - Immunization History Hx Tetanus Toxoid Vaccination: No Hx Influenza Vaccination: No Hx Pneumococcal Vaccination: No Review Of Systems Except As Marked, All Systems Reviewed And Found Negative. Constitutional: Positive for: Other (uncontrollable jerking and yelling ) Psych: Positive for: Other (self-harming) Physical Exam - Physical Exam Appears: Non-toxic, No Acute Distress Skin: Warm, Dry Head: Normacephalic Eye(s): bilateral: Normal Inspection Chest: Symmetrical Cardiovascular: Rhythm Regular Respiratory: Normal Breath Sounds Gastrointestinal/Abdominal: Soft, No Tenderness Extremity: Normal ROM (x4), Other (cut rogers on left upper inner arm ) Neurological/Psych: Oriented x3, Normal Speech ED Course And Treatment - Laboratory Results Result Diagrams: 10/31/18 16:12 10/31/18 16:12 Medical Decision Making Medical Decision Making: Plans: -- labs -- seroquel -- versed 17:20 On re-evaluation patient is now awake and alert, feeling better, states he wants to go home. Patient now denies any SI or HI. is at bedside, and is agreeable with plan to go home. states she will continue to observe patient at home. EK bpm NSR Normal axis Disposition Counseled Patient/Family Regarding: Diagnosis, Need For Followup - Disposition Referrals: [facility] [place]Outside] [facility] [Outside] [facility] [Outside] Disposition: HOME/ ROUTINE Disposition Time: 17:23 Condition: IMPROVED Additional Instructions: Consider heroin detoxification and refrain from drug use. Instructions: Drug Abuse and Drug Addiction (DC) Forms: [employer] (Japanese) - Clinical Impression Clinical Impression: Drug abuse - Scribe Statement The provider has reviewed the documentation as recorded by the Urielibjared Castro Do Provider Attestation: All medical record entries made by the Urielibjared were at my direction and personally dictated by me. I have reviewed the chart and agree that the record accurately reflects my personal performance of the history, physical exam, medical decision making, and the department course for this patient. I have also personally directed, reviewed, and agree with the discharge instructions and disposition.
[2018-10-31 16:04] VITALS: O2SAT 96
[2018-10-31 16:17] LABS: BASO # 0.1 K/uL (0.0-0.2); BASO % 0.8 % (0.0-2.0); EOS % 0.2 % (0.0-4.0); HEMOGLOBIN 14.2 g/dL (12.0-18.0); LYMPH # 1.5 K/uL (1.0-4.3); LYMPH % 20.8 % (20.0-40.0); MEAN CELL VOLUME 88.9 fL (80.0-94.0); MEAN CORPUSCULAR HEMOGLOBIN 29.9 pg (27.0-31.0); MEAN CORPUSCULAR HGB CONC 33.7 g/dL (33.0-37.0); MEAN PLATELET VOLUME 8.3 fL (7.2-11.7); MONO # 0.3 K/uL (0.0-0.8); MONO % 4.7 % (0.0-10.0); NEUT # 5.3 K/uL (1.8-7.0); NEUT % 73.5 % (50.0-75.0); NRBC % 0.1 % (0.0-2.0); RBC 4.74 Mil/uL (4.40-5.90); RED CELL DISTRIBUTION WIDTH 13.9 % (11.5-14.5); WHITE BLOOD COUNT 7.3 K/uL (4.8-10.8)
[2018-10-31 16:30] LABS: BLOOD UREA NITROGEN 18 mg/dL (9-20); GFR NON-AFRICAN AMERICAN 59
[2018-10-31 16:31] LABS: ALB/GLOB RATIO 1.7 (1.0-2.1); ALBUMIN 4.8 g/dL (3.5-5.0); ALT/SGPT 97 U/L (21-72); AST/SGOT 85 U/L (17-59); CALCIUM 8.9 mg/dl (8.6-10.4)
[2018-10-31 17:16] VITALS: BP 143/81; PULSE 89; RESP 20; TEMP 96
== END 2018-10-31 17:35 | disposition home or self-care (01) ==
LOC: C.ER 15:29
DX: F19.10 Other psychoactive substance abuse, uncomplicated (principal); F20.9 Schizophrenia, unspecified; Z72.0 Tobacco use
CPT/HCPCS: 80053; 83735; 84100; 85025; 99285; G0480

== ENCOUNTER 2019-01-03 14:07 | Inpatient (IN) | payer MEDICARE, MEDICAID ==
[2019-01-03 14:07] VITALS: BMI 34.0
[2019-01-03 14:41] LABS: BASO % 0.2 % (0.0-2.0); HEMOGLOBIN 14.1 g/dL (12.0-18.0); LYMPH # 1.1 K/uL (1.0-4.3); LYMPH % 25.7 % (20.0-40.0); MEAN CELL VOLUME 88.5 fL (80.0-94.0); MEAN CORPUSCULAR HEMOGLOBIN 30.8 pg (27.0-31.0); MEAN CORPUSCULAR HGB CONC 34.9 g/dL (33.0-37.0); MEAN PLATELET VOLUME 8.4 fL (7.2-11.7); MONO # 0.3 K/uL (0.0-0.8); MONO % 6.1 % (0.0-10.0); NEUT # 2.9 K/uL (1.8-7.0); NRBC % 0.1 % (0.0-2.0); RBC 4.58 Mil/uL (4.40-5.90); RED CELL DISTRIBUTION WIDTH 13.2 % (11.5-14.5); WHITE BLOOD COUNT 4.3 K/uL (4.8-10.8)
[2019-01-03 14:48] LABS: URINE BACTERIA RARE (<OCC); URINE BILIRUBIN NEGATIVE (NEGATIVE); URINE BLOOD NEGATIVE (NEGATIVE); URINE CLARITY Hazy (Clear); URINE COLOR Yellow (YELLOW); URINE GLUCOSE (UA) NORMAL (Normal); URINE LEUKOCYTE ESTERASE NEG Leu/uL (Negative); URINE PROTEIN NEGATIVE (NEGATIVE)
[2019-01-03 14:49] LABS: ALB/GLOB RATIO 1.7 (1.0-2.1); ALBUMIN 4.4 g/dL (3.5-5.0); ALT/SGPT 56 U/L (21-72); AST/SGOT 47 U/L (17-59); BLOOD UREA NITROGEN 13 mg/dL (9-20); CALCIUM 9.5 mg/dl (8.6-10.4); GFR NON-AFRICAN AMERICAN 58
[2019-01-03 14:59] LABS: BARBITURATES, UR NEGATIVE (NEGATIVE); BENZODIAZEPINES, UR NEGATIVE (NEGATIVE); OPIATES, UR NEGATIVE (NEGATIVE); PHENCYCLIDINE, UR NEGATIVE (NEGATIVE)
--- NOTE | 2019-01-03 15:59 | C.PDOC ---
History Of Present Illness 33 year old male with PMHx of schizophrenia, substance abuse, and antisocial BIBA presents for evaluation of suicidal ideation. Per EMS the pt verbalized wanting to jump off a bridge yesterday. Denies HI and any other associated sym ptoms. Time Seen by Provider: 01/03/19 14:34 Chief Complaint (Nursing): Psychiatric Evaluation History Per: Patient, EMS History/Exam Limitations: no limitations Recent travel outside of the [place]: No Past Medical History Reviewed: Historical Data, Nursing Documentation, Vital Signs Vital Signs: Last Vital Signs Temp 98 F 01/03/19 14:09 Pulse 80 01/03/19 14:09 Resp 20 01/03/19 14:09 BP 120/72 01/03/19 14:09 Pulse Ox 99 01/03/19 14:09 - Medical History PMH: Anxiety, Bipolar Disorder, Dementia, Depression, Pancreatitis, Schizophrenia Denies: Alzheimer's Disease, Asthma, Atrial Fibrillation, Bronchitis, Cardia Arrhythmia, CHF, COPD, Diabetes, Emphysema, Hepatitis, HIV, HTN, Hypercholesterolemia, Hyperthyroidism, Hypothyroidism, Kidney Stones, Migraine, Mitral Valve Prolapse, Multiple Sclerosis, Parkinson's Disease, Peripheral Edema, Pneumonia, Pulmonary Embolism, Chronic Kidney Disease, Seizures, Sexually Transmitted Disease, Sleep Apnea, TIA Surgical History: Denies: Pacemaker - [facility] Procedures DETOXIFICATION SERVICES FOR SUBSTANCE ABUSE TREATMENT (10/02/18) GROUP SURFACE PLATE INSPECTOR FOR SUBSTANCE ABUSE TREATMENT, PSYCHOEDUCATION (10/02/18) GROUP SURFACE PLATE INSPECTOR FOR SUBSTANCE ABUSE, COGNITIVE BEHAVIORAL (10/02/18) GROUP PSYCHOTHERAPY (10/02/18) INDIV PSYCHOTHERAPY FOR SUBSTANCE ABUSE TREATMENT, SUPPORT (10/02/18) INDIV PSYCHOTHERAPY FOR SUBSTANCE ABUSE, COGNITIV BEHAVIORAL (10/02/18) INDIV PSYCHOTHERAPY FOR SUBSTANCE ABUSE, PSYCHOEDUCATION (10/02/18) INDIVIDUAL PSYCHOTHERAPY, COGNITIVE-BEHAVIORAL (10/02/18) INDIVIDUAL PSYCHOTHERAPY, SUPPORTIVE (10/02/18) MEDICATION MANAGEMENT (09/11/18) PHARMACOTHERAPY FOR SUBSTANCE ABUSE, NICOTINE REPLACE (04/08/18) Family History: States: Unknown Family Hx - Social History Hx Tobacco Use: Yes Hx Alcohol Use: No Hx Substance Use: Yes - Immunization History Hx Tetanus Toxoid Vaccination: No Hx Influenza Vaccination: No Hx Pneumococcal Vaccination: No Review Of Systems Except As Marked, All Systems Reviewed And Found Negative. Psych: Positive for: Suicidal ideation, Other ((-) HI ) Physical Exam - Physical Exam Appears: Non-toxic, No Acute Distress, Other ( male. ) Skin: Warm, Dry Head: Atraumatic, Normacephalic Eye(s): bilateral: Normal Inspection Oral Mucosa: Moist Neck: Normal ROM, Supple Chest: Symmetrical, No Deformity Cardiovascular: Rhythm Regular, No Murmur Respiratory: Normal Breath Sounds, No Rales, No Rhonchi, No Wheezing Gastrointestinal/Abdominal: Normal Exam, Soft, No Tenderness Extremity: Bilateral: Atraumatic, Normal Color And Temperature, Normal ROM Neurological/Psych: Oriented x3, Normal Speech, Normal Cognition ED Course And Treatment - Laboratory Results Result Diagrams: 01/03/19 14:32 01/03/19 14:32 Lab Results: Total Bilirubin 0.8 mg/dL (0.2-1.3) 01/03/19 14:32 AST 47 U/L (17-59) 01/03/19 14:32 ALT 56 U/L (21-72) 01/03/19 14:32 Alkaline Phosphatase 67 U/L (38-126) 01/03/19 14:32 Total Protein 7.1 g/dL (6.3-8.3) 01/03/19 14:32 Albumin 4.4 g/dL (3.5-5.0) 01/03/19 14:32 Globulin 2.7 gm/dL (2.2-3.9) 01/03/19 14:32 Albumin/Globulin Ratio 1.7 (1.0-2.1) 01/03/19 14:32 Urine Color Yellow (YELLOW) 01/03/19 14:32 Urine Clarity Hazy (Clear) 01/03/19 14:32 Urine pH 6.0 (5.0-8.0) 01/03/19 14:32 Ur Specific [place] 1.028 (1.003-1.030) 01/03/19 14:32 Urine Protein Negative mg/dL (NEGATIVE) 01/03/19 14:32 Urine Glucose (UA) Normal mg/dL (Normal) 01/03/19 14:32 Urine Ketones Negative mg/dL (NEGATIVE) 01/03/19 14:32 Urine Blood Negative (NEGATIVE) 01/03/19 14:32 Urine Nitrate Negative (NEGATIVE) 01/03/19 14:32 Urine Bilirubin Negative (NEGATIVE) 01/03/19 14:32 Urine Urobilinogen 2.0 mg/dL (0.2-1.0) 01/03/19 14:32 Ur Leukocyte Esterase Neg Isaiah/uL (Negative) 01/03/19 14:32 Urine WBC (Auto) 1 /hpf (0-5) 01/03/19 14:32 Urine RBC (Auto) 2 /hpf (0-3) 01/03/19 14:32 Urine Bacteria Rare (<OCC) 01/03/19 14:32 Lab Interpretation: Normal O2 Sat by Pulse Oximetry: 99 (RA) Pulse Ox Interpretation: Normal Reevaluation Time: 15:59 Reassessment Condition: Improved Medical Decision Making Medical Decision Making: Initial plan: -Blood sent. -Urinalysis Progress/Update: schizo Disposition Doctor Will See Patient In The: Hospital Counseled Patient/Family Regarding: Studies Performed, Diagnosis - Disposition Disposition: HOSPITALIZED Disposition Time: 16:00 Condition: GOOD - Clinical Impression Clinical Impression: Schizo affective schizophrenia - Scribe Statement The provider has reviewed the documentation as recorded by the Scribe (Natalie Truong) Provider Attestation: All medical record entries made by the Scribe were at my direction and personally dictated by me. I have reviewed the chart and agree that the record accurately reflects my personal performance of the history, physical exam, medical decision making, and the department course for this patient. I have also personally directed, reviewed, and agree with the discharge instructions and disposition.
--- NOTE | 2019-01-03 16:25 | PCM.BM ---
<Lashawn Mcdermott - Last Filed: 01/03/19 16:22> Treatment Plan Problems - Problems identified on initial assessmt Self Harm Date Initiated: 01/03/19 Time Initiated: 16:22 Assessment reference: NA Status: Active Anxiety Date Initiated: 01/03/19 Time Initiated: 16:23 Assessment reference: NA Status: Active Treatment assets and liabiliti Patient Assests: cooperative, insightful, motivated, self-reliant, ADL independent, physically healthy, good support system, negotiates basic needs, financial stabiity, cognitively intact Patient Liabilities: live alone, financial problems, poor support system, substance abuse, legal issue, language/speech - Milieu Protocol Maintain good personal hygiene: daily Encourage regular showers, daily Remind patient to perform daily oral care, daily Assist patient to perform ADL's Conduct patient checks and document Observation sheet: Q15 minutes Maintain personal safety: every shift Educate patient to report safety concerns to staff, every shift Monitor environment for contraband/sharps Medication safety: Monitor for expected outcome, potential side effects: every shift, Assess barriers to learning: every shift, Assess readiness for medication education: every shift <Johnathan Paulino - Last Filed: 01/06/19 20:46> - Diagnosis (1) Schizoaffective disorder, bipolar type Status: Acute Interventions: 01/06/19 20:46 * Assess/adjust medications daily and /or as needed * See patient on an individual basis 7x/week to assess level of manic behaviors and stability * Discuss risks, benefits, side effects and alternatives of medications (2) Opioid use disorder, severe, dependence Status: Acute Interventions: 01/06/19 20:45 * Assess 7x/week regarding severity of withdrawal * Educate regarding risks, benefits, side effects and alternatives of medications * Use Motivational Interviewing for abstinence * Use CBT for relapse prevention * Medication management for withdrawal symptoms * Encourage medication assisted treatment (3) Cannabis use disorder, severe, dependence Status: Acute Interventions: 01/06/19 20:46 * Assess 7x/week regarding severity of withdrawal * Educate regarding risks, benefits, side effects and alternatives of medications * Use Motivational Interviewing for abstinence * Use CBT for relapse prevention * Medication management for withdrawal symptoms * Encourage medication assisted treatment <Kristie León - Last Filed: 01/07/19 10:33> Family Contact Family involvement: Famliy/SO not involved - Goals for Treatment Patient goals for treatment: "I need to go to rehab." Discharge/Continuing Care - Education Needs Education Needs: Patient Medication, Patient Placement options, Patient Community resources - Discharge Discharge Criteria: Tolerates medication w/o severe side effects, No longer exhibiting s/s of withdrawal, Reduction of target symptoms Discharge to:: Substance Abuse Rehab - Treatment Team Participation Discussed with Family/SO: No Was Patient/Family/SO present at Treatment Team Meeting: Yes
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
--- NOTE | 2019-01-05 21:04 | PCM.PYCHPN ---
Psychiatric Progress Note - Psychiatric Progress Note Patient seen today, length of contact: 15 minutes Patient Chief Complaint: I am not feeling much better. Problems Identified/Issues Discussed: Patient seen, chart reviewed, case discussed with the staff. Issues related to illness and treatment were discussed with the patient and staff. Reported compliant with treatment with no adverse effects. Tolerating treatment very well. Patient reported not feeling better, still has withdrawal symptoms including headache, bodyaches, depression, tiredness. Staff reported that patient was isolative and withdrawn. Mood reported as anxious. Affect appropriate. Aftercare discussed with the patient. Denied any delusions, auditory or visual hallucinations, suicidal ideations or homicidal ideations at the time of evaluation. Medical Problems: Hepatitis C Diagnostic Results: Reviewed Medication Change: No Medical Record Reviewed: Yes Mental Status Examination - Cognitive Function Orientation: Person, Place, Situation, Time Memory: Intact Attention: WNL Concentration: WNL Association: WN Fund of Knowledge: [facility] Decription of patient's judgement and insights: Fair - Mood Mood: Depressed - Affect Affect: Constricted - Speech Speech: Appropriate - Formal Thought Process Formal Thought Process: No Impairment - Suicidal Ideation Suicidal Ideation: No - Homicidal Ideation Homicidal Ideation: No Goal/Treatment Plan - Goal/Treatment Plan Need for Continued Stay: Remain at risks for inpatient hospitalization, Discharge may exacerbated symptoms, Severe functional impairment Progress Toward Problem(s) and Goals/Treatment Plan: Patient education. Supportive therapy. CBT for relapse prevention. [place] for abstinence. Continue treatment as before. Aftercare discussed with the patient. Estimated Date of D/C: 01/09/19 - Smoking Cessation Smoking Cessation Initiated: No Reason for not providing: Patient refused to take nicotine patch
[2019-01-06 06:20] VITALS: O2SAT 97
[2019-01-06] MEDS ORDERED: Pneumococcal 23-Valent Vaccine IM ONE (10:00)
--- NOTE | 2019-01-06 19:12 | PCM.PYCHPN ---
Psychiatric Progress Note - Psychiatric Progress Note Patient seen today, length of contact: 15 minutes Patient Chief Complaint: I am not feeling better. I want to go to [facility]. Problems Identified/Issues Discussed: Patient seen, chart reviewed, case discussed with the staff. Issues related to illness and treatment were discussed with the patient and staff. Reported compliant with treatment with no adverse effects. Tolerating treatment very well. Patient reported feeling better, still has withdrawal symptoms including headache, bodyaches, depression, tiredness, but are less than before. Staff reported no behavioral disturbance. Patient appeared more calm, cooperative and was more coherent and receptive. Mood reported as anxious. Affect appropriate. Aftercare discussed with the patient. Patient wants to go to [facility] for follow-up care after discharge from the hospital. Denied any delusions, auditory or visual hallucinations, suicidal ideations or homicidal ideations at the time of evaluation. Medical Problems: Hepatitis C Diagnostic Results: Reviewed DSM 5 Symptoms Update: Some improvement with treatment. Medication Change: No Medical Record Reviewed: Yes Mental Status Examination - Cognitive Function Orientation: Person, Place, Situation, Time Memory: Intact Attention: WNL Concentration: WNL Association: WNL Fund of Knowledge: [facility] Decription of patient's judgement and insights: Fair - Mood Mood: Depressed - Affect Affect: Depressed - Speech Speech: Appropriate - Formal Thought Process Formal Thought Process: No Impairment Psychotic Thoughts and Behaviors: None - Suicidal Ideation Suicidal Ideation: No - Homicidal Ideation Homicidal Ideation: No Goal/Treatment Plan - Goal/Treatment Plan Need for Continued Stay: Remain at risks for inpatient hospitalization, Discharge may exacerbated symptoms, Severe functional impairment Progress Toward Problem(s) and Goals/Treatment Plan: Patient education. Supportive therapy. CBT for relapse prevention. [place] for abstinence. Continue treatment as before. Aftercare discussed with the patient. Patient wants to go to [facility]. Estimated Date of D/C: 01/09/19 - Smoking Cessation Smoking Cessation Initiated: No
[2019-01-07 06:54] VITALS: RESP 18
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
[2019-01-07 21:37] LABS: HEPATITIS B SURFACE AG Negative (NEGATIVE)
[2019-01-07 21:43] LABS: HEPATITIS A IGM NEGATIVE (NEGATIVE); HEPATITIS B CORE AB NEGATIVE (NEGATIVE)
[2019-01-07 22:09] LABS: HEPATITIS C ANTIBODY REACTIVE (NEGATIVE)
--- NOTE | 2019-01-07 23:28 | PCM.PYCHPN ---
Psychiatric Progress Note - Psychiatric Progress Note Patient seen today, length of contact: 15 minutes Patient Chief Complaint: I am feeling better. Problems Identified/Issues Discussed: Patient seen, chart reviewed, case discussed with the staff. Issues related to illness and treatment were discussed with the patient and staff. Reported compliant with treatment with no adverse effects. Tolerating treatment very well. Patient reported feeling better. Patient reported some penile rash. We will call medicine. Staff reported no behavioral disturbance. Patient appeared more calm, cooperative and was more coherent and receptive. Mood reported as anxious. Affect appropriate. Aftercare discussed with the patient. [facility] to [facility] to [facility] for follow-up care after discharge from the hospital. Denied any delusions, auditory or visual hallucinations, suicidal ideations or homicidal ideations at the time of evaluation. Medical Problems: Hepatitis C Diagnostic Results: Reviewed DSM 5 Symptoms Update: Some improvement with treatment with Medication Change: No Medical Record Reviewed: Yes Consults ordered or reviewed: Ordered and reviewed. Mental Status Examination - Cognitive Function Orientation: Person, Place, Situation, Time Memory: Intact Attention: WNL Concentration: WNL Association: WN Fund of Knowledge: [facility] Decription of patient's judgement and insights: Fair - Mood Mood: Depressed (Less than before) - Affect Affect: Depressed - Speech Speech: Appropriate - Formal Thought Process Formal Thought Process: No Impairment Psychotic Thoughts and Behaviors: None - Suicidal Ideation Suicidal Ideation: No - Homicidal Ideation Homicidal Ideation: No Goal/Treatment Plan - Goal/Treatment Plan Need for Continued Stay: Remain at risks for inpatient hospitalization, Discharge may exacerbated symptoms, Severe functional impairment Progress Toward Problem(s) and Goals/Treatment Plan: Patient education. Supportive therapy. CBT for relapse prevention. [place] for abstinence. Continue treatment as before. Aftercare discussed with the patient. Patient wants to go to [facility]. Estimated Date of D/C: 01/12/19 - Smoking Cessation Smoking Cessation Initiated: No
--- NOTE | 2019-01-08 07:53 | CP.PCM.PN ---
<Florencia Dye P - Last Filed: 01/08/19 18:57> Subjective - Date & Time of Evaluation Date of Evaluation: 01/08/19 Time of Evaluation: 09:00 - Subjective Subjective: Progress note for Dr. Jones. Patient seen and examined at bedside. States penile rash is unchanged. Denies fever, chills, discharge, dysuria, penile pain, foul odor, abdominal pain, nausea, and vomiting. Patient states he has a known previous hx of hepatitis C, not treated. Objective - Vital Signs/Intake and Output Vital Signs (last 24 hours): Temp Pulse Resp BP Pulse Ox 98.1 F 73 18 102/64 97 01/08/19 06:54 01/08/19 06:54 01/08/19 06:54 01/08/19 06:54 01/06/19 06:19 - Medications Medications: Current Medications Hydroxyzine HCl (Atarax) 25 mg PO Q6 PRN PRN Reason: Anxiety Last Admin: 01/07/19 13:19 Dose: 25 mg Lorazepam (Ativan) 0.5 mg PO ONCE PRN PRN Reason: Agitation Last Admin: 01/07/19 15:19 Dose: 0.5 mg Lorazepam (Ativan) 1 mg PO Q6H PRN PRN Reason: Agitation Last Admin: 01/08/19 01:25 Dose: 1 mg Mirtazapine (Remeron) 15 mg PO HS PRN PRN Reason: Sleep Last Admin: 01/08/19 01:25 Dose: 15 mg Olanzapine (Zyprexa) 10 mg PO BID [facility] Last Admin: 01/07/19 18:02 Dose: 10 mg Oxcarbazepine (Trileptal) 300 mg PO BID [facility] Last Admin: 01/07/19 18:02 Dose: 300 mg Quetiapine Fumarate (Seroquel) 200 mg PO HS [facility] Last Admin: 01/07/19 21:41 Dose: 200 mg - Labs Labs: 01/03/19 14:32 01/03/19 14:32 - Additional Findings Additional findings: - Constitutional Appears: Non-toxic, No Acute Distress - Head Exam Head Exam: ATRAUMATIC, NORMOCEPHALIC - Eye Exam Eye Exam: EOMI, Normal appearance, PERRL - Neck Exam Neck exam: Positive for: Full Rom, Normal Inspection - Respiratory Exam Respiratory Exam: Clear to Auscultation Bilateral, NORMAL BREATHING PATTERN. absent: Rales, Rhonchi, Wheezes - Cardiovascular Exam Cardiovascular Exam: REGULAR RHYTHM, +S1, +S2 - Exam Exam: absent: Circumcision, Scrotal Swelling, Uretheral Discharge External exam: absent: Ecchymosis, Erythema, Lacerations Additional comments: tiny flesh colored papules to head of penis, non-tender to palpation. No discharge. No inguinal lymphadenopathy. - Extremities Exam Extremities exam: Positive for: full ROM, normal inspection, pedal pulses present. Negative for: pedal edema, tenderness - Neurological Exam Neurological exam: Oriented x3, awake, alert, CN 2-12 grossly intact - Skin Skin Exam: Dry, Intact, Warm Additional comments: old cut rogers and keloids to LUE Assessment and Plan - Assessment and Plan (Free Text) Plan: [place] granules (enlarged oil glands) -Clomitrazole 1% cream applied to affected area once daily for 2 days -F/u HIV, RPR, GC, Hep A, Hep B negative -Hepatitis C reactive- patient has known history of hepatitis C- recommend follow up with GI out patient Discussed with Dr. Karen Dye, PGY-1 <Irvin Jones - Last Filed: 01/09/19 07:05> Objective - Vital Signs/Intake and Output Vital Signs (last 24 hours): Temp Pulse Resp BP Pulse Ox 97.5 F L 81 18 116/68 97 01/09/19 07:00 01/09/19 07:00 01/09/19 07:00 01/09/19 07:00 01/06/19 06:19 - Medications Medications: Current Medications Clotrimazole (Lotrimin 1%) 0 gm TOP DAILY MAIRA Stop: 01/10/19 23:59 Last Admin: 01/08/19 19:09 Dose: 1 applic Hydroxyzine HCl (Atarax) 25 mg PO Q6 PRN PRN Reason: Anxiety Last Admin: 01/08/19 13:31 Dose: 25 mg Lorazepam (Ativan) 0.5 mg PO ONCE PRN PRN Reason: Agitation Last Admin: 01/07/19 15:19 Dose: 0.5 mg Lorazepam (Ativan) 1 mg PO Q6H PRN PRN Reason: Agitation Last Admin: 01/08/19 23:45 Dose: 1 mg Mirtazapine (Remeron) 15 mg PO HS PRN PRN Reason: Sleep Last Admin: 01/08/19 23:46 Dose: 15 mg Olanzapine (Zyprexa) 10 mg PO BID [facility] Last Admin: 01/08/19 17:16 Dose: 10 mg Oxcarbazepine (Trileptal) 300 mg PO BID [facility] Last Admin: 01/08/19 17:15 Dose: 300 mg Quetiapine Fumarate (Seroquel) 200 mg PO HS [facility] Last Admin: 01/08/19 20:59 Dose: 200 mg - Labs Labs: 01/03/19 14:32 01/03/19 14:32 Attending/Attestation - Attestation I have personally seen and examined this patient.: Yes I have fully participated in the care of the patient.: Yes I have reviewed all pertinent clinical information, including history, physical exam and plan: Yes Notes (Text): 01/09/19 07:03 Medical attending: Patient was seen and examined by me. Agree with the above note by the resident The patient was not in any acute distress when we came and saw him The patient denied urinary complaints. There is a history hepatitis C that is already known from before HIV as well as RPR were negative For the time being apply topical antifungal cream Irvin Jones
--- NOTE | 2019-01-08 17:02 | PCM.PYCHPN ---
Psychiatric Progress Note - Psychiatric Progress Note Patient seen today, length of contact: 15 minutes Patient Chief Complaint: I am feeling better. Problems Identified/Issues Discussed: Patient seen, chart reviewed, case discussed with the staff. Issues related to illness and treatment were discussed with the patient and staff. Reported compliant with treatment with no adverse effects. Tolerating treatment very well. Patient reported feeling better. Staff reported some behavioral disturbance at times. Patient appeared more calm, cooperative and was more coherent and receptive. Mood reported as anxious. Affect appropriate. Aftercare discussed with the patient. Patient wants to go to [facility] for follow-up care after discharge from the hospital. Denied any delusions, auditory or visual hallucinations, suicidal ideations or homicidal ideations at the time of evaluation. Medical Problems: Hepatitis C Diagnostic Results: Reviewed Medication Change: No Medical Record Reviewed: Yes Consults ordered or reviewed: Reviewed Mental Status Examination - Cognitive Function Orientation: Person, Place, Situation, Time Memory: Intact Attention: WNL Concentration: WNL Association: WNL Fund of Knowledge: [facility] Decription of patient's judgement and insights: Fair - Mood Mood: Depressed (Less than before) - Affect Affect: Depressed - Speech Speech: Appropriate - Formal Thought Process Formal Thought Process: No Impairment Psychotic Thoughts and Behaviors: None - Suicidal Ideation Suicidal Ideation: No - Homicidal Ideation Homicidal Ideation: No Goal/Treatment Plan - Goal/Treatment Plan Need for Continued Stay: Remain at risks for inpatient hospitalization, Discharge may exacerbated symptoms, Severe functional impairment Progress Toward Problem(s) and Goals/Treatment Plan: Patient education. Supportive therapy. CBT for relapse prevention. HI for abstinence. Continue treatment as before. Aftercare discussed with the patient. Patient wants to go to [facility]. Estimated Date of D/C: 01/12/19 - Smoking Cessation Smoking Cessation Initiated: No
[2019-01-08] MEDS: Clotrimazole 1% Cream 15 GM TUBE TOP SCH (19:09)
[2019-01-09 07:00] VITALS: BP 116/68; PULSE 81; TEMP 97.5
[2019-01-09] MEDS: Clotrimazole 1% Cream 15 GM TUBE TOP SCH (09:15)
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
== END 2019-01-09 10:57 | disposition home or self-care (01) | DRG 885 ==
LOC: C.ER 14:07 → C.5E 15:57
PROC: GZHZZZZ Group Psychotherapy (ICD-10-PCS; principal; 2019-01-03)
PROC: HZ52ZZZ Individual Psychotherapy for Substance Abuse Treatment, Cognitive-Behavioral (ICD-10-PCS; 2019-01-03)
PROC: HZ59ZZZ Individual Psychotherapy for Substance Abuse Treatment, Supportive (ICD-10-PCS; 2019-01-03)
PROC: HZ56ZZZ Individual Psychotherapy for Substance Abuse Treatment, Psychoeducation (ICD-10-PCS; 2019-01-03)
PROC: HZ42ZZZ Group Counseling for Substance Abuse Treatment, Cognitive-Behavioral (ICD-10-PCS; 2019-01-03)
PROC: HZ46ZZZ Group Counseling for Substance Abuse Treatment, Psychoeducation (ICD-10-PCS; 2019-01-03)
PROC: GZ58ZZZ Individual Psychotherapy, Cognitive-Behavioral (ICD-10-PCS; 2019-01-03)
PROC: GZ56ZZZ Individual Psychotherapy, Supportive (ICD-10-PCS; 2019-01-03)
DX: F25.0 Schizoaffective disorder, bipolar type (principal); R45.851 Suicidal ideations; F11.23 Opioid dependence with withdrawal; B19.20 Unspecified viral hepatitis C without hepatic coma; Z59.0 Homelessness; Z91.19 Patient's noncompliance with other medical treatment and regimen; F17.210 Nicotine dependence, cigarettes, uncomplicated; F12.23 Cannabis dependence with withdrawal; L29.9 Pruritus, unspecified; F41.9 Anxiety disorder, unspecified; Z91.5 Personal history of self-harm; F14.90 Cocaine use, unspecified, uncomplicated; N48.89 Other specified disorders of penis